=== PATIENT | male | born 1995 | race Caucasian/White ===

== ENCOUNTER 2017-04-10 23:38 | Inpatient (IN) | payer OTHER ==
[~2017-04-10] VITALS: Ht 170.2 cm; Wt 63.9 kg
[2017-04-11] VITALS (9 sets, daily range): BP systolic 111–116; BP diastolic 65–77; PULSE 65–96; RESP 18–22; TEMP 98.6; Ht 170.2 cm; Wt 63.9 kg
[2017-04-11] MEDS ORDERED: D-ME473S2 PO (01:55)
[2017-04-11] MEDS ORDERED: ETOMIDATE 20 MG INJ IV STA (02:00)
--- NOTE | 2017-04-11 02:05 | ERD ---
ER Documentation Chief Complaint Chief Complaint cough x 2 days, sob today (TATI PEREZ) HPI This is a 21-year-old male presents to the ER with cough and shortness of breath that started last night. Patient states that he feels like he has something in the middle of his chest and feels like he cannot take a deep breath in. He denies any fevers or chills. Patient went to an ER last night, however left before being seen. Has not had any trauma. He has not traveled anywhere. He does not have any leg pain, redness or swelling. (TATI PEREZ) Shortness of breath transferred from ER 2. Found to have tension pneumothorax. Transported immediately to ER 1 for chest tube placement. Patient's vital signs remained stable throughout (ANGEL REID) ROS 12 point review of systems was done, all negative except per HPI. (TATI PEREZ) Medications Home Meds No Active Prescriptions or Reported Meds Allergies Allergies: Coded Allergies: No Known Allergy (Unverified , 04/10/17) PMhx/Soc Medical and Surgical Hx: pt denies Medical Hx, pt denies Surgical Hx Hx Alcohol Use: No Hx Substance Use: No Hx Tobacco Use: No Smoking Status: Never smoker (TATI PEREZ) Physical Exam Vitals Vital Signs Date Time Temp Pulse Resp B/P Pulse Ox O2 Delivery O2 Flow Rate FiO2 04/11/17 02:10 100 15.0 04/10/17 23:45 99.1 75 20 131/74 97 (ANGEL REID) Physical Exam GENERAL: The patient is well developed and appropriate for usual state of health , in no apparent distress. HEENT: Atraumatic CHEST: Clear to auscultation bilaterally. There are no rales, wheezes or rhonchi. HEART: Regular rate and rhythm. No murmurs, clicks, rubs or gallops. NEURO: Alert and oriented. SKIN: There is no apparent rash or petechia. The skin is warm and dry. (TATI PEREZ) Result Diagram: 04/11/17 0539 04/11/17 0539 Results 24 hrs Laboratory Tests Test 04/11/17 02:10 White Blood Count 7.810^3/ul Red Blood Count 4.8910^6/ul Hemoglobin 15.4g/dl Hematocrit 45.3% Mean Corpuscular Volume 92.6fl Mean Corpuscular Hemoglobin 31.5pg Mean Corpuscular Hemoglobin Concent 34.0g/dl Red Cell Distribution Width 12.7% Platelet Count 20678^3/UL Mean Platelet Volume 9.6fl Neutrophils % 70.1% Lymphocytes % 20.5% Monocytes % 8.2% Eosinophils % 0.4% Basophils % 0.4% Nucleated Red Blood Cells % 0.0/100WBC Neutrophils # 5.410^3/ul Lymphocytes # 1.610^3/ul Monocytes # 0.610^3/ul Eosinophils # 0.010^3/ul Basophils # 0.010^3/ul Nucleated Red Blood Cells # 0.010^3/ul Prothrombin Time 12.9Sec Prothrombin Time Ratio 1.0 INR International Normalized Ratio 0.97 Activated Partial Thromboplast Time 26.0Sec Sodium Level 145mmol/L Potassium Level 3.9mmol/L Chloride Level 101mmol/L Carbon Dioxide Level 27mmol/L Anion Gap 21 Blood Urea Nitrogen 12mg/dl Creatinine 0.92mg/dl Glucose Level 101mg/dl Calcium Level 9.8mg/dl Total Bilirubin 0.9mg/dl Direct Bilirubin 0.00mg/dl Indirect Bilirubin 0.9mg/dl Aspartate Amino Transf (AST/SGOT) 36IU/L Alanine Aminotransferase (ALT/SGPT) 46IU/L Alkaline Phosphatase 100IU/L Total Protein 8.5g/dl Albumin 5.4g/dl Globulin 3.10g/dl Albumin/Globulin Ratio 1.74 Lipase Pending Current Medications Medications (Trade) Dose Ordered Sig/Jackeline Route PRN Reason Start Time Stop Time Status Last Admin Dose Admin Etomidate (Amidate) 20 mg ONCE STAT IV 04/11/17 02:00 04/11/17 02:03 DC 04/11/17 02:16 Lorazepam (Ativan) 2 mg STK-MED ONCE .ROUTE 04/11/17 02:20 04/11/17 02:21 DC (ANGEL REID) Results 24 hrs Laboratory Tests Test 04/11/17 02:10 White Blood Count 7.810^3/ul Red Blood Count 4.8910^6/ul Hemoglobin 15.4g/dl Hematocrit 45.3% Mean Corpuscular Volume 92.6fl Mean Corpuscular Hemoglobin 31.5pg Mean Corpuscular Hemoglobin Concent 34.0g/dl Red Cell Distribution Width 12.7% Platelet Count 18323^3/UL Mean Platelet Volume 9.6fl Neutrophils % 70.1% Lymphocytes % 20.5% Monocytes % 8.2% Eosinophils % 0.4% Basophils % 0.4% Nucleated Red Blood Cells % 0.0/100WBC Neutrophils # 5.410^3/ul Lymphocytes # 1.610^3/ul Monocytes # 0.610^3/ul Eosinophils # 0.010^3/ul Basophils # 0.010^3/ul Nucleated Red Blood Cells # 0.010^3/ul Prothrombin Time 12.9Sec Prothrombin Time Ratio 1.0 INR International Normalized Ratio 0.97 Activated Partial Thromboplast Time 26.0Sec Sodium Level 145mmol/L Potassium Level 3.9mmol/L Chloride Level 101mmol/L Carbon Dioxide Level 27mmol/L Anion Gap 21 Blood Urea Nitrogen 12mg/dl Creatinine 0.92mg/dl Glucose Level 101mg/dl Calcium Level 9.8mg/dl Total Bilirubin 0.9mg/dl Direct Bilirubin 0.00mg/dl Indirect Bilirubin 0.9mg/dl Aspartate Amino Transf (AST/SGOT) 36IU/L Alanine Aminotransferase (ALT/SGPT) 46IU/L Alkaline Phosphatase 100IU/L Total Protein 8.5g/dl Albumin 5.4g/dl Globulin 3.10g/dl Albumin/Globulin Ratio 1.74 Lipase 14U/L Current Medications Medications (Trade) Dose Ordered Sig/Jackeline Route PRN Reason Start Time Stop Time Status Last Admin Dose Admin Etomidate (Amidate) 20 mg ONCE STAT IV 04/11/17 02:00 04/11/17 02:03 DC 04/11/17 02:16 Lorazepam (Ativan) 2 mg STK-MED ONCE .ROUTE 04/11/17 02:20 04/11/17 02:21 [place] [address] Radiology Main Line: [phone] DIAGNOSTIC IMAGING REPORT Patient: BETTY RUBIO : 1995 Age: 21 Sex: M MR #: [id number] DOS: 04/11/17 0000 Ordering MD: TATI PEREZ-[place] Location: [facility] Room/Bed: PROCEDURE: Chest. CLINICAL INDICATION: Shortness of breath. TECHNIQUE: Single frontal view of the chest was obtained. COMPARISON: None. FINDINGS: The cardiac silhouette is within normal limits. The aortic arch is unremarkable. There is no focal consolidation, vascular congestion or pleural effusion. There is a large right-sided pneumothorax. There is mild deviation of the trachea to the left. IMPRESSION: Large right-sided pneumothorax with mild deviation of the trachea to the left. Critical results were discussed with Dr. Reid at 02:03 a.m. .Kirit Smith MD, Date Time Electronically viewed and signed by .Kirit Smith MD, MD on 04/11/2017 02:04 .T/ CC: TATI PEREZ (TATI PEREZ) Procedures/MDM Patient's was found to have a pneumothorax, he was transferred to ER 1 for further management and care. Patient was not hypoxic or any respiratory distress. (TATI PEREZ) Chest Tube Placement by me: Patient consented, sterilely draped, full prep, gown, glove, mask, time out performed. Anesthesia: 1% lidocaine locally Location: Mid-Anterior Axillary Line, approximate 5th intercostal Device: 24 Setswana chest tube Technique: Vertical incision, blunt dissection above the superior rib border , tactile confirmation Results: Chest tube fogging Secured with suture and taping. No complications. Attached to [facility]. Critical Care: Time: 45 minutes Treatments/Evaluations: Close monitoring and treatment of unstable vital signs, cardiorespiratory, and neurologic status, while maintaining tight balance of fluid, respiratory, and cardiac interventions. Chest X-ray 1V Interpreted by me: Pneumothorax diminished to 2 cm, chest tube in pleural space facing cephalad. Normal soft tissue. (ANGEL REID) Departure Diagnosis: Primary Impression: Tension pneumothorax, spontaneous Condition: Stable Patient Instructions: Preventing Common Respiratory Infections Additional Instructions: Call your primary care doctor TOMORROW for an appointment during the next 1-2 days.See the doctor sooner or return here if your condition worsens before your appointment time. TATI PEREZ Apr 11, 2017 02:05 ANGEL REID Apr 11, 2017 03:53
[2017-04-11] MEDS ORDERED: LORAZEPAM 2 MG INJ ONE (02:20)
[2017-04-11 03:02] LABS: BASOPHILS % 0.4 % (0.0-2.0); EOSINOPHILS % 0.4 % (0.0-7.0); HEMATOCRIT 45.3 % (42.0-52.0); HEMOGLOBIN 15.4 g/dl (14.0-18.0); LYMPHOCYTES # 1.6 10^3/ul (0.8-2.9); LYMPHOCYTES % 20.5 % (15.0-51.0); MEAN CORPUSCULAR HEMOGLOBIN 31.5 pg (29.0-33.0); MEAN CORPUSCULAR VOLUME 92.6 fl (82.0-101.0); MEAN PLATELET VOLUME 9.6 fl (7.4-10.4); MONOCYTE # 0.6 10^3/ul (0.3-0.9); MONOCYTES % 8.2 % (0.0-11.0); NEUTROPHIL # 5.4 10^3/ul (1.6-7.5); NEUTROPHILS % 70.1 % (39.0-77.0); PLATELET COUNT 251 10^3/UL (140-415); RED BLOOD COUNT 4.89 10^6/ul (4.70-6.10); RED CELL DISTRIBUTION WIDTH 12.7 % (11.5-14.5); WHITE BLOOD COUNT 7.8 10^3/ul (4.8-10.8)
--- NOTE | 2017-04-11 03:20 | RADRPT ---
PROCEDURE: XR Chest. CLINICAL INDICATION: Chest tube placement TECHNIQUE: AP Portable chest. COMPARISON: CHEST 04/11/2017 FINDINGS: The patient is rotated to the right. There is interval placement of a right chest tube with the tip between the posterior right eighth an d ninth ribs. The pneumothorax is significantly decreased in size with associated re-expansion of th e right lung. There is right perihilar ground-glass density. The cardiomediastinal silhouette is normal. The aorta is normal. The left lung is clear. There is mi ld right chest subcutaneous emphysema. The osseous structures are intact. IMPRESSION: Interval placement of a right chest tube with significant decrease in size of the pneumothorax and r e-expansion of the lung. Physician Carey Date Time Electronically viewed and signed by Physician Carey on 04/11/2017 03:20 CS/
[2017-04-11 03:25] LABS: INR 0.97; PROTIME 12.9 Sec (12.2-14.2)
[2017-04-11 03:31] LABS: ALBUMIN 5.4 g/dl (3.3-4.9); ALBUMIN/GLOBULIN RATIO 1.74; BILIRUBIN,INDIRECT 0.9 mg/dl (0-1.1); BILIRUBIN,TOTAL 0.9 mg/dl (0.2-1.3); CALCIUM 9.8 mg/dl (8.4-10.2); CREATININE 0.92 mg/dl (0.61-1.24); POTASSIUM 3.9 mmol/L (3.5-5.1); TOTAL PROTEIN 8.5 g/dl (6.1-8.1)
[2017-04-11] MEDS ORDERED: NACL 0.9% 3 ML SYG IV SCH (04:00)
[2017-04-11] MEDS ORDERED: ACETAMINOPHEN 325 MG TAB PO PRN (04:00)
[2017-04-11] MEDS ORDERED: ONDANSETRON 4 MG INJ IV PRN (04:00)
[2017-04-11] MEDS ORDERED: LORAZEPAM 0.5 MG TAB PO PRN (04:00)
[2017-04-11] MEDS ORDERED: morphine 4 MG/ML VIAL IV ONE (04:11)
[2017-04-11] MEDS ORDERED: ONDANSETRON 4 MG INJ IV ONE (04:12)
--- NOTE | 2017-04-11 04:20 | HP ---
Date/Time of Note Date/Time of Note DATE: 04/11/17 TIME: 04:20 Assessment/Plan VTE Prophylaxis VTE Prophylaxis Intervention: SCD's Assessment/Plan Chief Complaint/Hosp Course This is a 21-year-old male being admitted to the telemetry floor for: #1 right-sided spontaneous pneumothorax: Possibly secondary to underlying rupture of subpleural bleb secondary to marijuana use. Patient reportedly admitted marijuana use to the ED physician. Will obtain a urine drug screen to confirm. Patient denies any other short of trauma or inciting event. Chest tube was placed by ED physician with subsequent interval improvement of the right-sided pneumothorax seen by chest x-ray. Chest tube connected to waterseal low suction. Continue current management at this time. Will consult pulmonary and CT surgery. #2 suspected marijuana use: We will check a urine drug screen. If in fact patient is positive will advise cessation. #3 DVT GI prophylaxis: SCDs, acid cody Further treatment strategy will be provided as per the clinical course Problems: HPI/ROS Admit Date/Time Admit Date/Time Hx of Present Illness Chief complaint: Shortness of breat chest painh, This is a 21-year-old male presents to the ER with cough and shortness of breath that started last night. Patient states that he feels like he has something in the middle of his chest and feels like he cannot take a deep breath in. He denies any fevers or chills. Patient went to an ER last night, however left before being seen. Has not had any trauma. He has not traveled anywhere. He does not have any leg pain, redness or swelling. I did discuss the case with the ED physician who also states that the patient reported marijuana use. Allergies: NKDA Medications: None ROS Const: As per HPI Eyes : No pain discharge or redness or change in visual acuity ENT: No pain, sore throat, congestion, congestion, dysphagia or discharge Respiratory: As per HPI Cardiovascular: No chest pain, palpitation, PND, or edema GI : no change in appetite, abdominal pain, nausea, vomiting, diarrhea, constipation, or change in the color his stool Genitourinary: No dysuria, hematuria, flank pain , discharge or CVA tenderness Musculoskeletal: No joint pain, back pain, neck pain, restricted range of motion in neck or joints Skin: No rash, bruising or hives Neuro: No headache, dizziness, syncope, seizure, focal weakness Endocrine: No polyuria, polydipsia, temperature intolerance Psych: No hallucination, depression, anxiety or suicidal ideation PMH/Family/Social Past Medical History Medical History: no pertinent history Past Surgical History Past Surgical Hx: no surgical history Family History Significant Family History: no pertinent family hx Social History Alcohol Use: none Smoking Status: Never smoker Drug Use: marijuana Exam/Review of Systems Vital Signs Vitals Vital Signs Date Time Temp Pulse Resp B/P Pulse Ox O2 Delivery O2 Flow Rate FiO2 04/11/17 02:10 100 15.0 04/10/17 23:45 99.1 75 20 131/74 Intake and Output 04/10/17 04/10/17 04/11/17 15:00 23:00 07:00 Output Total 0 ml Balance 0 ml Exam Exam General: Patient is lying in bed status post right chest tube placement HEENT: Atraumatic, normocephalic. The pupils are equal, round and reactive. Extraocular motor are intact Neck: Supple with full range of motion. No rigidity or meningismus Chest: Right chest tube inserted and connected to waterseal. Lungs: Normal breath sounds over the left lung field, diminished breath sounds of the right apex, good air movement at the rest of the lower lung field. Heart: Normal S1-S2, Regular rhythm and rate. Abdomen: Soft , nontender, nondistended , bowel sounds are present. No guarding no rebound tenderness , No masses or organomegaly. No costovertebral temporal angle mass Extremities: Normal to inspection, no edema no cyanosis Neurologic: Normal mental status, speech normal, cranial nerves II through XII are intact, motor and sensory are intact, no focal weakness Additional Comments PROCEDURE: Chest. CLINICAL INDICATION: Shortness of breath. TECHNIQUE: Single frontal view of the chest was obtained. COMPARISON: None. FINDINGS: The cardiac silhouette is within normal limits. The aortic arch is unremarkable. There is no focal consolidation, vascular congestion or pleural effusion. There is a large right-sided pneumothorax. There is mild deviation of the trachea to the left. IMPRESSION: Large right-sided pneumothorax with mild deviation of the trachea to the left. Critical results were discussed with Dr. Reid at 02:03 a.m. .Kirit Smith MD, MD Date Time Electronically viewed and signed by .Kirit Smith MD, on 04/11/2017 02:04 .T/ CC: TATI PEREZ PROCEDURE: XR Chest. CLINICAL INDICATION: Chest tube placement TECHNIQUE: AP Portable chest. COMPARISON: DR CHEST 04/11/2017 FINDINGS: The patient is rotated to the right. There is interval placement of a right chest tube with the tip between the posterior right eighth and ninth ribs. The pneumothorax is significantly decreased in size with associated re-expansion of the right lung. There is right perihilar ground-glass density. The cardiomediastinal silhouette is normal. The aorta is normal. The left lung is clear. There is mild right chest subcutaneous emphysema. The osseous structures are intact. IMPRESSION: Interval placement of a right chest tube with significant decrease in size of the pneumothorax and re-expansion of the lung. Physician Carey Date Time Electronically viewed and signed by Physician Carey on 04/11/2017 03: 20 CS/ CC: ANGEL REID Labs Result Diagram: 04/11/17 02104/11/17 0210 Medications Medications Current Medications Lorazepam (Ativan) 0.5 mg Q8H PRN PO ANXIETY; Start 04/11/17 at 04:00 Ondansetron HCl (Zofran Inj) 4 mg Q6H PRN IV NAUSEA AND/OR VOMITING; Start 04/11/17 at 04:00 Acetaminophen (Tylenol Tab) 650 mg Q6H PRN PO PAIN LEVEL 1-3 OR FEVER; Start 04/11/17 at 04:00 Famotidine (Pepcid) 20 mg Q12 PO ; Start 04/11/17 at 09:00 ANDREA FELIX Apr 11, 2017 04:20
[2017-04-11 05:57] LABS: BASOPHILS % 0.3 % (0.0-2.0); EOSINOPHILS % 0.1 % (0.0-7.0); HEMATOCRIT 43.3 % (42.0-52.0); HEMOGLOBIN 14.7 g/dl (14.0-18.0); LYMPHOCYTES # 1.7 10^3/ul (0.8-2.9); LYMPHOCYTES % 14.9 % (15.0-51.0); MEAN CORPUSCULAR HEMOGLOBIN 31.4 pg (29.0-33.0); MEAN CORPUSCULAR HGB CONC 33.9 g/dl (32.0-37.0); MEAN CORPUSCULAR VOLUME 92.5 fl (82.0-101.0); MEAN PLATELET VOLUME 9.4 fl (7.4-10.4); MONOCYTE # 0.9 10^3/ul (0.3-0.9); NEUTROPHIL # 8.9 10^3/ul (1.6-7.5); NEUTROPHILS % 76.4 % (39.0-77.0); PLATELET COUNT 209 10^3/UL (140-415); RED BLOOD COUNT 4.68 10^6/ul (4.70-6.10); RED CELL DISTRIBUTION WIDTH 12.9 % (11.5-14.5); WHITE BLOOD COUNT 11.6 10^3/ul (4.8-10.8)
[2017-04-11 06:35] LABS: ALBUMIN 4.9 g/dl (3.3-4.9); ALBUMIN/GLOBULIN RATIO 1.81; BILIRUBIN,INDIRECT 1.6 mg/dl (0-1.1); BILIRUBIN,TOTAL 1.6 mg/dl (0.2-1.3); CALCIUM 9.4 mg/dl (8.4-10.2); CREATININE 0.94 mg/dl (0.61-1.24); POTASSIUM 4.5 mmol/L (3.5-5.1); TOTAL PROTEIN 7.6 g/dl (6.1-8.1)
[2017-04-11] MEDS ORDERED: LORAZEPAM 2 MG INJ IV ONE (07:00)
[2017-04-11] MEDS ORDERED: ETOMIDATE 20 MG INJ IV ONE (07:00)
--- NOTE | 2017-04-11 08:43 | RADRPT ---
PROCEDURE: XR Chest. CLINICAL INDICATION: Shortness of breath. TECHNIQUE: Single frontal view. COMPARISON: 04/11/2017. 0236 hours. FINDINGS: The lungs are clear. The heart size is normal. There is no pleural effusion. The right chest tube remains in satisfactory position. There is a right pneumothorax measuring appro ximately 40%. There is no left pneumothorax para IMPRESSION: 1. Right chest tube. 2. Right pneumothorax measuring approximately 40%. 3. Otherwise normal chest radiograph. RPTAT: QQ .Patrick Marie MD, MD Date Time Electronically viewed and signed by .Partick Marie MD, MD on 04/11/2017 08:43 .R/
[2017-04-11] MEDS: FAMOTIDINE 20 MG TAB PO SCH ×2 (09:00→21:30)
--- NOTE | 2017-04-11 15:58 | PN ---
Date/Time of Note Date/Time of Note DATE: 04/11/17 TIME: 15:52 Assessment/Plan VTE Prophylaxis VTE Prophylaxis Intervention: ambulation, SCD's Lines/Catheters IV Catheter Type (from Nrs): Saline Lock Assessment/Plan Assessment/Plan 1. Right-sided spontaneous pneumothorax s/p Chest tube placement - Patient admits to smoking marijuana and counseled about effects and PTX most likely secondary to rupture of subpleural bleb. - Pulmonology consulted as well as CT surgery for management of chest tube - No acute respiratory distress - Pain management - CXR this am shows 40% right pneumo. Will repeat CXR in am 2. Marijuana use - Counseled about cessation 3. GI ppx - PPI 4. Disposition - Continue monitoring until resolution of pneumothorax Subjective 24 Hr Interval Summary Free Text/Dictation Patient states breathing has significantly improved since placement of chest tube. Denies any pain but does experiencing discomfort with movement. No acute overnight events. Exam/Review of Systems Vital Signs Vitals Vital Signs Date Time Temp Pulse Resp B/P Pulse Ox O2 Delivery O2 Flow Rate FiO2 04/11/17 12:16 65 04/11/17 11:00 99.1 22 111/65 96 Room Air 04/11/17 11:00 2.0 Intake and Output 04/10/17 04/10/17 04/11/17 15:00 23:00 07:00 Output Total 0 ml Balance 0 ml Exam General: Patient in NAD, awake and alert HEENT: Atraumatic, normocephalic. The pupils are equal, round and reactive. Extraocular motor are intact Neck: Supple with full range of motion. No rigidity or meningismus Chest: Right chest tube inserted and connected to water seal. No bubbles appreciated Lungs: Normal breath sounds over the left lung field, diminished breath sounds of the right apex, good air movement at the rest of the lower lung field. Heart: Normal S1-S2, Regular rhythm and rate. Abdomen: Soft , nontender, nondistended , bowel sounds are present. No guarding no rebound tenderness , No masses or organomegaly. No costovertebral temporal angle mass Extremities: Normal to inspection, no edema no cyanosis Results Result Diagram: 04/11/17 0539 04/11/17 0539 Results 24 hrs Laboratory Tests Test 04/11/17 02:10 04/11/17 05:39 White Blood Count 7.8 11.6 #H Red Blood Count 4.89 4.68 L Hemoglobin 15.4 14.7 Hematocrit 45.3 43.3 Mean Corpuscular Volume 92.6 92.5 Mean Corpuscular Hemoglobin 31.5 31.4 Mean Corpuscular Hemoglobin Concent 34.0 33.9 Red Cell Distribution Width 12.7 12.9 Platelet Count 251 209 Mean Platelet Volume 9.6 9.4 Neutrophils % 70.1 76.4 Lymphocytes % 20.5 14.9 L Monocytes % 8.2 8.0 Eosinophils % 0.4 0.1 Basophils % 0.4 0.3 Nucleated Red Blood Cells % 0.0 0.0 Neutrophils # 5.4 8.9 H Lymphocytes # 1.6 1.7 Monocytes # 0.6 0.9 Eosinophils # 0.0 0.0 Basophils # 0.0 0.0 Nucleated Red Blood Cells # 0.0 0.0 Prothrombin Time 12.9 Prothrombin Time Ratio 1.0 INR International Normalized Ratio 0.97 Activated Partial Thromboplast Time 26.0 Sodium Level 145 H 144 Potassium Level 3.9 4.5 Chloride Level 101 103 Carbon Dioxide Level 27 28 Anion Gap 21 H 18 H Blood Urea Nitrogen 12 14 Creatinine 0.92 0.94 Glucose Level 101 101 Calcium Level 9.8 9.4 Total Bilirubin 0.9 1.6 H Direct Bilirubin 0.00 0.00 Indirect Bilirubin 0.9 1.6 H Aspartate Amino Transf (AST/SGOT) 36 36 Alanine Aminotransferase (ALT/SGPT) 46 45 Alkaline Phosphatase 100 77 Total Protein 8.5 H 7.6 Albumin 5.4 H 4.9 Globulin 3.10 2.70 Albumin/Globulin Ratio 1.74 1.81 Lipase 14 L Medications Medications Current Medications Lorazepam (Ativan) 0.5 mg Q8H PRN PO ANXIETY; Start 04/11/17 at 04:00 Ondansetron HCl (Zofran Inj) 4 mg Q6H PRN IV NAUSEA AND/OR VOMITING; Start 04/11/17 at 04:00 Acetaminophen (Tylenol Tab) 650 mg Q6H PRN PO PAIN LEVEL 1-3 OR FEVER; Start 04/11/17 at 04:00 Famotidine (Pepcid) 20 mg Q12 PO ; Start 04/11/17 at 09:00 ELIZABETH TRIVEDI MD Apr 11, 2017 15:58
[2017-04-11] MEDS: HYDROCODONE/APAP (5/325) TAB PO PRN ×2 (17:42→20:46)
--- NOTE | 2017-04-11 18:49 | CONS ---
Date/Time of Note Date/Time of Note DATE: 04/11/17 TIME: 18:47 Assessment/Plan Assessment/Plan Chief Complaint/Hosp Course Pneumothorax Spontaneous episode of right pneumothorax responding to a chest tube placement will continue chest tube suction Repeat chest x-ray in a.m. Problems: Consultation Date/Type/Reason Admit Date/Time Date of Consultation: Apr 11, 2017 Hx of Present Illness This is a 21-year-old male with a history of marijuana use admitted because of chest pain chest x-ray was done which showed a right-sided pneumothorax subsequently the patient had a chest tube placed pneumothorax resolved however today the pneumothorax is free Past Medical History Medical History: no pertinent history Past Surgical History Past Surgical Hx: no surgical history Social History Alcohol Use: none Smoking Status: Never smoker Drug Use: marijuana Exam/Review of Systems Vital Signs Vitals Vital Signs Date Time Temp Pulse Resp B/P Pulse Ox O2 Delivery O2 Flow Rate FiO2 04/11/17 16:03 80 04/11/17 11:00 99.1 22 111/65 96 Room Air 04/11/17 11:00 2.0 Intake and Output 04/10/17 04/10/17 04/11/17 15:00 23:00 07:00 Output Total 0 ml Balance 0 ml Exam ENMT: nl external ears & nose, nl lips & teeth, nl nasal mucosa & septum Neck: non-tender, supple Respiratory: clear to auscultation, normal air movement Cardiovascular: nl pulses, regular rate and rhythm Results Result Diagram: 04/11/17 0539 04/11/17 0539 Results 24 hrs Laboratory Tests Test 04/11/17 02:10 04/11/17 05:39 White Blood Count 7.8 11.6 #H Red Blood Count 4.89 4.68 L Hemoglobin 15.4 14.7 Hematocrit 45.3 43.3 Mean Corpuscular Volume 92.6 92.5 Mean Corpuscular Hemoglobin 31.5 31.4 Mean Corpuscular Hemoglobin Concent 34.0 33.9 Red Cell Distribution Width 12.7 12.9 Platelet Count 251 209 Mean Platelet Volume 9.6 9.4 Neutrophils % 70.1 76.4 Lymphocytes % 20.5 14.9 L Monocytes % 8.2 8.0 Eosinophils % 0.4 0.1 Basophils % 0.4 0.3 Nucleated Red Blood Cells % 0.0 0.0 Neutrophils # 5.4 8.9 H Lymphocytes # 1.6 1.7 Monocytes # 0.6 0.9 Eosinophils # 0.0 0.0 Basophils # 0.0 0.0 Nucleated Red Blood Cells # 0.0 0.0 Prothrombin Time 12.9 Prothrombin Time Ratio 1.0 INR International Normalized Ratio 0.97 Activated Partial Thromboplast Time 26.0 Sodium Level 145 H 144 Potassium Level 3.9 4.5 Chloride Level 101 103 Carbon Dioxide Level 27 28 Anion Gap 21 H 18 H Blood Urea Nitrogen 12 14 Creatinine 0.92 0.94 Glucose Level 101 101 Calcium Level 9.8 9.4 Total Bilirubin 0.9 1.6 H Direct Bilirubin 0.00 0.00 Indirect Bilirubin 0.9 1.6 H Aspartate Amino Transf (AST/SGOT) 36 36 Alanine Aminotransferase (ALT/SGPT) 46 45 Alkaline Phosphatase 100 77 Total Protein 8.5 H 7.6 Albumin 5.4 H 4.9 Globulin 3.10 2.70 Albumin/Globulin Ratio 1.74 1.81 Lipase 14 L Medications Medications Current Medications Lorazepam (Ativan) 0.5 mg Q8H PRN PO ANXIETY; Start 04/11/17 at 04:00 Ondansetron HCl (Zofran Inj) 4 mg Q6H PRN IV NAUSEA AND/OR VOMITING; Start 04/11/17 at 04:00 Acetaminophen (Tylenol Tab) 650 mg Q6H PRN PO PAIN LEVEL 1-3 OR FEVER; Start 04/11/17 at 04:00 Famotidine (Pepcid) 20 mg Q12 PO Last administered on 04/11/17 09:00; Admin Dose 20 MG; Start 04/11/17 at 09:00 Acetaminophen/ Hydrocodone Bitart ([place] (5/325)) 1 tab Q4H PRN PO SOB Last administered on 04/11/17 17:42; Admin Dose 1 TAB; Start 04/11/17 at 16:00 HARRY EDGE MD Apr 11, 2017 18:49
[2017-04-12] VITALS (12 sets, daily range): BP systolic 96–138; BP diastolic 59–81; PULSE 54–74; RESP 16–21
[2017-04-12] MEDS: HYDROCODONE/APAP (5/325) TAB PO PRN ×3 (02:51→16:38)
[2017-04-12 07:25] LABS: BASOPHILS % 0.2 % (0.0-2.0); EOSINOPHILS % 0.5 % (0.0-7.0); HEMATOCRIT 41.6 % (42.0-52.0); HEMOGLOBIN 14.4 g/dl (14.0-18.0); LYMPHOCYTES # 1.4 10^3/ul (0.8-2.9); LYMPHOCYTES % 22.1 % (15.0-51.0); MEAN CORPUSCULAR HEMOGLOBIN 31.9 pg (29.0-33.0); MEAN CORPUSCULAR HGB CONC 34.6 g/dl (32.0-37.0); MEAN CORPUSCULAR VOLUME 92.2 fl (82.0-101.0); MEAN PLATELET VOLUME 9.3 fl (7.4-10.4); MONOCYTE # 0.6 10^3/ul (0.3-0.9); MONOCYTES % 9.9 % (0.0-11.0); NEUTROPHIL # 4.2 10^3/ul (1.6-7.5); NEUTROPHILS % 67.1 % (39.0-77.0); PLATELET COUNT 215 10^3/UL (140-415); RED BLOOD COUNT 4.51 10^6/ul (4.70-6.10); RED CELL DISTRIBUTION WIDTH 12.4 % (11.5-14.5); WHITE BLOOD COUNT 6.3 10^3/ul (4.8-10.8)
[2017-04-12 07:59] LABS: ALBUMIN 4.1 g/dl (3.3-4.9); CALCIUM 9.5 mg/dl (8.4-10.2); CREATININE 0.87 mg/dl (0.61-1.24); MAGNESIUM 1.8 mg/dl (1.7-2.5); PHOSPHORUS 5.1 mg/dl (2.5-4.9); POTASSIUM 3.7 mmol/L (3.5-5.1)
[2017-04-12] MEDS: FAMOTIDINE 20 MG TAB PO SCH ×2 (09:28→22:05)
--- NOTE | 2017-04-12 11:25 | RADRPT ---
PROCEDURE: XR Chest. CLINICAL INDICATION: reevaluate pneumothorax TECHNIQUE: PA and Lateral views of the chest were obtained. COMPARISON: Chest radiograph dated April 11, 2017. FINDINGS: The heart is normal in size. Again seen is a right-sided pneumothorax with a chest tube in place in stable position. There is an air gap of 4.0 cm, previously 3.0 cm. There is no evidence of significant mass effect on the mediast inum or heart. The left lung is unremarkable. The osseous structures are grossly unremarkable. IMPRESSION: Compared to chest radiograph dated April 11, 2017 at 8:08 am: 1. Right pneumothorax, which appears increased in size with an air gap of 4.0 cm (previously 3.0 cm ). Chest tube in stable position. RPTAT:AAJJ Physician Emi Date Time Electronically viewed and signed by Physician Emi on 04/12/2017 11:25 QL/
--- NOTE | 2017-04-12 12:29 | CONS ---
DATE OF ADMISSION: 04/11/2017 DATE OF CONSULTATION: TYPE OF CONSULTATION: Pulmonary. REASON FOR CONSULTATION: Pneumothorax. HISTORY OF PRESENT ILLNESS: This is a pleasant 21-year-old gentleman who presented with increasing cough, shortness of breath, sudden onset. No travel history. Occurred while the patient was appare ntly smoking marijuana. No prior history of asthma. On admission, was found to have moderate right pneumothorax requiring chest tube placement. This morning, patient remains stable. Repeat chest x -ray shows persistent pneumothorax 4 cm with pleural space. He denies any hemoptysis, hematemesis. No shortness of breath. Other than discomfort around chest tube insertion site. PAST MEDICAL HISTORY: None of note. SOCIAL HISTORY: Nonsmoker, no alcohol, recreational drug use per chart. MEDICATIONS: Per chart. ALLERGIES: NONE. PHYSICAL EXAMINATION: GENERAL: Well-nourished, well-developed gentleman, comfortable at rest. VITAL SIGNS: Temperature 98, pulse 54, blood pressure 96/49, O2 saturation 96% on room air. NECK: Supple. No JVD or lymphadenopathy. CARDIAC: S1, S2, no added sounds or murmurs. CHEST: Diminished air entry bilaterally. ABDOMEN: Soft, nontender. No guarding or rebound. EXTREMITIES: No cyanosis, clubbing, or edema. NEUROLOGIC: Generalized weakness. IMAGING: Chest x-ray this morning shows persistent right pneumothorax. Chest tube in stable positi on. PLAN: 1. Continue chest tube to suction. Exam suggestive of air leak with bubbling in water chamber of c hest tube. 2. CT of the chest to exclude . 3. Thoracic surgery recommendations. Dictated By: ANABEL CAMPOS/PRASANNA Conf#: [id number] DID#: [id number]
--- NOTE | 2017-04-12 12:42 | PN ---
Date/Time of Note Date/Time of Note DATE: 04/12/17 TIME: 12:33 Assessment/Plan VTE Prophylaxis VTE Prophylaxis Intervention: ambulation Lines/Catheters IV Catheter Type (from Nrs): Saline Lock Assessment/Plan Assessment/Plan 1. Right-sided spontaneous pneumothorax s/p Chest tube placement - Repeat CXR this am shows increased in size with an air gap of 4.0 cm ( previously 3.0 cm). Chest tube in stable position - CT surgery on board and recommendations appreciated - Pulmonology on board as well and consultation appreciated - Patient admits to smoking marijuana and counseled about effects and PTX most likely secondary to rupture of subpleural bleb. - No acute respiratory distress - Pain management 2. Marijuana use - Counseled about cessation 3. Disposition - continue monitoring while CT in place Subjective 24 Hr Interval Summary Free Text/Dictation Patient resting comfortably. States experiencing less discomfort since suction was turned off. Denies any new complaints and no acute overnight events. Exam/Review of Systems Vital Signs Vitals Vital Signs Date Time Temp Pulse Resp B/P Pulse Ox O2 Delivery O2 Flow Rate FiO2 04/12/17 12:14 56 04/12/17 11:36 98.7 18 105/66 95 04/11/17 22:58 Room Air 04/11/17 11:00 2.0 Intake and Output 04/11/17 04/11/17 04/12/17 15:00 23:00 07:00 Intake Total 240 ml Output Total 491 ml Balance -251 ml Exam General: Patient in NAD, awake and alert HEENT: Atraumatic, normocephalic. The pupils are equal, round and reactive. Extraocular motor are intact Neck: Supple with full range of motion. No rigidity or meningismus Chest: Right chest tube in place Lungs: Normal breath sounds over the left lung field, diminished breath sounds of the right apex, good air movement at the rest of the lower lung field. Heart: Normal S1-S2, Regular rhythm and rate. Abdomen: Soft , nontender, nondistended , bowel sounds are present. No guarding no rebound tenderness Extremities: Normal to inspection, no edema no cyanosis Results Result Diagram: 04/12/17 0710 04/12/17 0710 Results 24 hrs Laboratory Tests Test 04/12/17 07:10 White Blood Count 6.3 # Red Blood Count 4.51 L Hemoglobin 14.4 Hematocrit 41.6 L Mean Corpuscular Volume 92.2 Mean Corpuscular Hemoglobin 31.9 Mean Corpuscular Hemoglobin Concent 34.6 Red Cell Distribution Width 12.4 Platelet Count 215 Mean Platelet Volume 9.3 Neutrophils % 67.1 Lymphocytes % 22.1 Monocytes % 9.9 Eosinophils % 0.5 Basophils % 0.2 Nucleated Red Blood Cells % 0.0 Neutrophils # 4.2 Lymphocytes # 1.4 Monocytes # 0.6 Eosinophils # 0.0 Basophils # 0.0 Nucleated Red Blood Cells # 0.0 Sodium Level 142 Potassium Level 3.7 Chloride Level 103 Carbon Dioxide Level 29 Anion Gap 14 Blood Urea Nitrogen 11 Creatinine 0.87 Glucose Level 106 Calcium Level 9.5 Phosphorus Level 5.1 H Magnesium Level 1.8 Albumin 4.1 Medications Medications Current Medications Lorazepam (Ativan) 0.5 mg Q8H PRN PO ANXIETY; Start 04/11/17 at 04:00 Ondansetron HCl (Zofran Inj) 4 mg Q6H PRN IV NAUSEA AND/OR VOMITING; Start 04/11/17 at 04:00 Acetaminophen (Tylenol Tab) 650 mg Q6H PRN PO PAIN LEVEL 1-3 OR FEVER; Start 04/11/17 at 04:00 Famotidine (Pepcid) 20 mg Q12 PO Last administered on 04/12/17 09:28; Admin Dose 20 MG; Start 04/11/17 at 09:00 Acetaminophen/ Hydrocodone Bitart ([place] (5/325)) 1 tab Q4H PRN PO SOB Last administered on 04/12/17 09:38; Admin Dose 1 TAB; Start 04/11/17 at 16:00 ELIZABETH TRIVEDI MD Apr 12, 2017 12:42
[2017-04-12] MEDS ORDERED: INFLUENZA VIRUS VACCINE 0.5 ML SYG IM* ONE (16:00)
--- NOTE | 2017-04-12 20:09 | PN ---
Date/Time of Note Date/Time of Note DATE: 04/12/17 TIME: 20:08 Assessment/Plan Lines/Catheters IV Catheter Type (from Nrsg): Saline Lock Assessment/Plan Chief Complaint/Hosp Course Pneumothorax increased in size Spontaneous episode of right pneumothorax responding to a chest tube placement will continue chest tube suction may need a 2nd CT Repeat chest x-ray in a.m. Problems: Subjective 24 Hr Interval Summary Constitutional: improved Pain Control: mild Exam/Review of Systems Vital Signs Vitals Vital Signs Date Time Temp Pulse Resp B/P Pulse Ox O2 Delivery O2 Flow Rate FiO2 04/12/17 16:27 67 04/12/17 15:28 98.5 18 103/60 99 04/11/17 22:58 Room Air 04/11/17 11:00 2.0 Intake and Output 04/11/17 04/11/17 04/12/17 15:00 23:00 07:00 Intake Total 240 ml Output Total 491 ml Balance -251 ml Exam ENMT: mucosa pink and moist, nl external ears & nose, nl lips & teeth, nl nasal mucosa & septum Neck: non-tender, supple Respiratory: clear to auscultation, normal air movement Cardiovascular: nl pulses, regular rate and rhythm Gastrointestinal: nl liver, spleen, non-tender, soft Results Result Diagram: 04/12/17 0710 04/12/17 0710 HARRY EDGE MD Apr 12, 2017 20:09
--- NOTE | 2017-04-12 22:42 | RADRPT ---
PROCEDURE: CT Chest without contrast. CLINICAL INDICATION: Pneumothorax. Possible pulmonary blood. TECHNIQUE: CT scan of the chest without contrast was performed on a multidetector high-resolution C T scanner. Coronal and sagittal reformatted images were obtained from the axial source images. The total exam CTDI equals 7.02 mGy and the total exam DLP equals 288.19 mGy-cm. One or more of the following dose reduction techniques were used: - Automated exposure control. - Adjustment of the mA and/or kV according to patient size. - Use of iterative reconstruction technique. COMPARISON: Chest x-rays dated 04/12/2017 and 04/11/2017. FINDINGS: Lungs, pleura, airways, and thoracic inlet: There is a [id number] right-sided pneumothorax d espite a right-sided thoracostomy tube being in place. There is ground-glass opacity within the post erior right upper lobe and dependent right lower lobe, some of which may be related to atelectasis. The left lung is clear. There is no left-sided pneumothorax. There is subcutaneous emphysema within the overlying lateral right chest wall extending into the posterior upper abdomen. The tracheobronch ial tree is patent and normal in course and caliber. Cardiovascular system, mediastinum, and lymphatics: The heart is normal in size without pericardial thickening or effusion. The aorta is nonaneurysmal. There is no axillary, hilar, or mediastinal ad enopathy. Visualized upper abdomen: The visualized upper abdomen is grossly unremarkable. Musculoskeletal system and soft tissues: There are no concerning osseous lesions. IMPRESSION: 1. Gwqcphkt-[id number] right pneumothorax despite a right-sided thoracostomy tube in place, which chloe ears increased in size when compared with the recent chest x-ray performed earlier the same day, giv en the difference in technique. Consider repositioning/advancing the existing chest tube, which is l ikely malfunctioning. Subcutaneous emphysema overlying the lateral right chest wall extending toward the upper abdomen posteriorly. 2. Ground-glass opacity within the posterior right upper lobe and dependent right lower lobe, some of which is likely related to atelectasis. CRITICAL RESULTS: These findings discussed with the patient's nurse Jessica Stroud at 2238 hours o n 04/12/2017. RPTAT: HLBP .Jorge Mata MD, MD Date Time Electronically viewed and signed by .Jorge Mata MD, MD on 04/12/2017 22:41 .P/
[2017-04-13] VITALS (13 sets, daily range): BP systolic 98–128; BP diastolic 58–84; PULSE 52–78; RESP 17–21
[2017-04-13] MEDS: HYDROCODONE/APAP (5/325) TAB PO PRN ×5 (00:18→20:52)
[2017-04-13 07:24] LABS: ADD UMIC YES; UR AMORPHOUS CRYSTAL FEW /HPF (NONE SEEN); UR ASCORBIC ACID NEGATIVE (NEGATIVE); UR BACTERIA FEW /HPF (NONE SEEN); UR BILIRUBIN (Dip) NEGATIVE (NEGATIVE); UR BLOOD (Dip) NEGATIVE (NEGATIVE); UR CLARITY CLOUDY (CLEAR); UR COLOR YELLOW (YELLOW); UR GLUCOSE (Dip) NEGATIVE (NEGATIVE); UR KETONES (Dip) NEGATIVE (NEGATIVE); UR LEUKOCYTE ESTERASE (Dip) NEGATIVE Leu/ul (NEGATIVE); UR NITRITE (Dip) NEGATIVE (NEGATIVE); UR RBC 1 /HPF (0-5); UR TOTAL PROTEIN (Dip) NEGATIVE (NEGATIVE); UR UROBILINOGEN (Dip) 1+ mg/dL (NEGATIVE)
[2017-04-13 07:52] LABS: BARBITURATES Negative (NEGATIVE); BENZODIAZEPINES Negative (NEGATIVE); CANNABINOIDS Positive (NEGATIVE); COCAINE Negative (NEGATIVE); OPIATES Positive (NEGATIVE)
[2017-04-13 08:25] LABS: BASOPHILS % 0.4 % (0.0-2.0); EOSINOPHILS # 0.1 10^3/ul (0.0-0.5); HEMATOCRIT 43.2 % (42.0-52.0); HEMOGLOBIN 14.3 g/dl (14.0-18.0); LYMPHOCYTES # 1.5 10^3/ul (0.8-2.9); LYMPHOCYTES % 20.7 % (15.0-51.0); MEAN CORPUSCULAR HEMOGLOBIN 30.6 pg (29.0-33.0); MEAN CORPUSCULAR HGB CONC 33.1 g/dl (32.0-37.0); MEAN CORPUSCULAR VOLUME 92.5 fl (82.0-101.0); MEAN PLATELET VOLUME 9.8 fl (7.4-10.4); MONOCYTE # 0.7 10^3/ul (0.3-0.9); MONOCYTES % 9.8 % (0.0-11.0); NEUTROPHIL # 4.7 10^3/ul (1.6-7.5); PLATELET COUNT 214 10^3/UL (140-415); RED BLOOD COUNT 4.67 10^6/ul (4.70-6.10); RED CELL DISTRIBUTION WIDTH 12.5 % (11.5-14.5)
--- NOTE | 2017-04-13 08:27 | RADRPT ---
PROCEDURE: XR Chest. CLINICAL INDICATION: Right pneumothorax. TECHNIQUE: Single frontal view. COMPARISON: 04/12/2017. FINDINGS: The lungs are clear. The heart size is normal. There is no pleural effusion. There is a right pneumothorax measuring approximately 20%, smaller than seen previously. A right maritza st tube remains in satisfactory position. IMPRESSION: 1. Right pneumothorax measuring approximately 20%, smaller than seen previously. 2. Right chest tube. 3. Otherwise unremarkable chest radiograph. RPTAT: QQ .Patrick Marie MD, MD Date Time Electronically viewed and signed by .Patrick Marie MD, MD on 04/13/2017 08:27 .R/
[2017-04-13] MEDS: FAMOTIDINE 20 MG TAB PO SCH ×2 (08:34→21:00)
[2017-04-13 08:56] LABS: ALBUMIN 4.5 g/dl (3.3-4.9); CALCIUM 9.5 mg/dl (8.4-10.2); CREATININE 0.99 mg/dl (0.61-1.24); MAGNESIUM 1.8 mg/dl (1.7-2.5); PHOSPHORUS 4.6 mg/dl (2.5-4.9); POTASSIUM 4.1 mmol/L (3.5-5.1)
[2017-04-13] MEDS ORDERED: SOD CHLORIDE 0.9% 500 ML ONE (09:58)
[2017-04-13] MEDS ORDERED: FENTAnyl 50 MCG/ML VIAL ONE (09:58)
[2017-04-13] MEDS ORDERED: MIDAZOLAM 1 MG/ML 2 ML INJ ONE (09:58)
[2017-04-13] MEDS ORDERED: LIDOCAINE 1% (MDV) 20 ML INJ ONE (09:58)
--- NOTE | 2017-04-13 11:11 | PN ---
Date/Time of Note Date/Time of Note DATE: 04/13/17 TIME: 11:11 Assessment/Plan VTE Prophylaxis VTE Prophylaxis Intervention: SCD's Lines/Catheters IV Catheter Type (from Nrs): Saline Lock Assessment/Plan Assessment/Plan 1. Right-sided spontaneous pneumothorax s/p Chest tube placement - repeat CT scan last night showed Czefirwv-ec-[id number] right pneumothorax despite a right-sided thoracostomy tube in place, which appears increased in size when compared with the recent chest x-ray performed earlier the same day, given the difference in technique. - Repeat CXR this am showed Right pneumothorax measuring approximately 20%, smaller than seen previously. - CT surgery on board and recommendations appreciated. plans for a second chest tube placement - Pulmonology on board as well and consultation appreciated - Patient admits to smoking marijuana and counseled about effects and PTX most likely secondary to rupture of subpleural bleb. - No acute respiratory distress - Pain management 2. Marijuana use - Counseled about cessation 3. Disposition - continue monitoring while chest tubes in place Subjective 24 Hr Interval Summary Free Text/Dictation Patient experiencing discomfort at right side in area of chest tube placement. Respiratory status improving and feels as if breathing better. Chest tube leak found. CXR shows improvement right pneumo 20%. Exam/Review of Systems Vital Signs Vitals Vital Signs Date Time Temp Pulse Resp B/P Pulse Ox O2 Delivery O2 Flow Rate FiO2 04/13/17 08:10 52 04/13/17 07:43 97.7 17 98/58 100 04/13/17 00:11 100 04/13/17 00:00 Non Rebreather 15.0 Intake and Output 04/12/17 04/12/17 04/13/17 15:00 23:00 07:00 Intake Total 1200 ml 240 ml Output Total 14 ml 1110 ml Balance 1186 ml -870 ml Exam General: Patient in NAD when laying still, discomfort with movement, awake and alert HEENT: Atraumatic, normocephalic. The pupils are equal, round and reactive. Extraocular motor are intact Neck: Supple with full range of motion. No rigidity or meningismus Chest: Right chest tube in place, Lungs: Normal breath sounds over the left lung field, diminished breath sounds of the right apex, good air movement at the rest of the lower lung field. Heart: Normal S1-S2, Regular rhythm and rate. Abdomen: Soft , nontender, nondistended , bowel sounds are present. No guarding no rebound tenderness Extremities: Normal to inspection, no edema no cyanosis Results Result Diagram: 04/13/1770504/13/17 07 Results 24 hrs Laboratory Tests Test 04/13/17 05:00 04/13/17 07:06 Urine Opiates Screen Positive Urine Barbiturates Negative Urine Amphetamines Screen Negative Urine Benzodiazepines Screen Negative Urine Cocaine Screen Negative Urine Cannabinoids Positive White Blood Count 7.0 Red Blood Count 4.67 L Hemoglobin 14.3 Hematocrit 43.2 Mean Corpuscular Volume 92.5 Mean Corpuscular Hemoglobin 30.6 Mean Corpuscular Hemoglobin Concent 33.1 Red Cell Distribution Width 12.5 Platelet Count 214 Mean Platelet Volume 9.8 Neutrophils % 67.0 Lymphocytes % 20.7 Monocytes % 9.8 Eosinophils % 2.0 Basophils % 0.4 Nucleated Red Blood Cells % 0.0 Neutrophils # 4.7 Lymphocytes # 1.5 Monocytes # 0.7 Eosinophils # 0.1 Basophils # 0.0 Nucleated Red Blood Cells # 0.0 Sodium Level 140 Potassium Level 4.1 Chloride Level 100 Carbon Dioxide Level 29 Anion Gap 15 Blood Urea Nitrogen 12 Creatinine 0.99 Glucose Level 133 Calcium Level 9.5 Phosphorus Level 4.6 Magnesium Level 1.8 Albumin 4.5 Medications Medications Current Medications Lorazepam (Ativan) 0.5 mg Q8H PRN PO ANXIETY; Start 04/11/17 at 04:00 Ondansetron HCl (Zofran Inj) 4 mg Q6H PRN IV NAUSEA AND/OR VOMITING; Start 04/11/17 at 04:00 Acetaminophen (Tylenol Tab) 650 mg Q6H PRN PO PAIN LEVEL 1-3 OR FEVER; Start 04/11/17 at 04:00 Famotidine (Pepcid) 20 mg Q12 PO Last administered on 04/13/17 08:34; Admin Dose 20 MG; Start 04/11/17 at 09:00 Acetaminophen/ Hydrocodone Bitart ([place] (5/325)) 1 tab Q4H PRN PO SOB Last administered on 04/13/17 04:48; Admin Dose 1 TAB; Start 04/11/17 at 16:00 ELIZABETH TRIVEDI MD Apr 13, 2017 11:11
--- NOTE | 2017-04-13 12:14 | RADRPT ---
PROCEDURE: Fluoroscopic guided placement of right chest tube. CLINICAL INDICATION: Right pneumothorax. Shortness of breath. TECHNIQUE: Informed consent was obtained. The procedure, risks, benefits, complications and alternatives were explained to the patient. Risks including bleeding, infection, and pneumothorax were explained. The patient understood and was willing to proceed. A procedural pause was performed. The patient's name, date of , and procedure to be performed w ere verified. The right anterior/superior chest wall were prepped and draped in usual sterile fashion. Following the local injection of 1% lidocaine, a 19-gauge Yueh needle was advanced into the right pl eural space in the midclavicular line at the 3-4 interspace with fluoroscopic guidance. The Yueh met al needle was removed leaving the plastic outer cannula in position. A 0.035 inch guidewire was adv anced into the right pleural space through the plastic cannula with fluoroscopic guidance. The plas tic cannula was removed. The tract was dilated to 10-Tristanian. A 10 Tristanian multipurpose drainage cat heter was then advanced over the guide wire. The guidewire was removed. Fluoroscopic guidance demo nstrates the catheter in satisfactory position within the pleural space. The catheter was sutured t o the patient's skin with 3-0 monofilament. A dressing was applied. The patient tolerated procedure well. A Pleur-Evac system was attached to t he end of the chest tube. COMPARISON: Chest x-ray done earlier the same day. FINDINGS: Final images demonstrate the tip of the catheter in the upper right pleural space. A total of 0.1 m inutes of fluoroscopy time was used. 4 images of the chest were obtained with image intensifier. IMPRESSION: 1. Successful fluoroscopic guided placement of right chest tube. RPTAT: QQ .Patrick Marie MD, MD Date Time Electronically viewed and signed by .Patrick Marie MD, on 04/13/2017 12:13 .R/
--- NOTE | 2017-04-13 16:24 | CONS ---
Date/Time of Note Date/Time of Note DATE: 04/13/17 TIME: 16:22 Consult Date/Type/Reason Admit Date/Time Apr 11, 2017 at 03:50 Initial Consult Date 04/11/17 Type of Consultation: Pulmonary Subjective Second chest tube placed. 20% apical pneumothorax noted this morning. Patient states he feels better following placement of another chest tube. Objective Vital Signs Date Time Temp Pulse Resp B/P Pulse Ox O2 Delivery O2 Flow Rate FiO2 04/13/17 15:15 97.6 81 18 123/79 100 04/13/17 14:04 100 04/13/17 00:00 Non Rebreather 15.0 Intake and Output 04/12/17 04/12/17 04/13/17 15:00 23:00 07:00 Intake Total 1200 ml 240 ml Output Total 14 ml 1110 ml Balance 1186 ml -870 ml Exam GENERAL: Well-nourished well-developed gentleman comfortable at rest VITAL SIGNS: per chart NECK: Supple. No JVD or lymphadenopathy. CARDIAC EXAM: S1, S2. No added sounds or murmurs. CHEST: clear bilaterally, No added sounds, rales or wheezes ABDOMEN: Soft, nontender. No guarding or rebound. EXTREMITIES: No cyanosis, clubbing or edema. NEUROLOGIC: No focal deficits Results/Medications Result Diagram: 04/13/17 0704/13/17 0706 Results 24 hrs Laboratory Tests Test 04/13/17 05:00 04/13/17 07:06 Urine Opiates Screen Positive Urine Barbiturates Negative Urine Amphetamines Screen Negative Urine Benzodiazepines Screen Negative Urine Cocaine Screen Negative Urine Cannabinoids Positive White Blood Count 7.0 Red Blood Count 4.67 L Hemoglobin 14.3 Hematocrit 43.2 Mean Corpuscular Volume 92.5 Mean Corpuscular Hemoglobin 30.6 Mean Corpuscular Hemoglobin Concent 33.1 Red Cell Distribution Width 12.5 Platelet Count 214 Mean Platelet Volume 9.8 Neutrophils % 67.0 Lymphocytes % 20.7 Monocytes % 9.8 Eosinophils % 2.0 Basophils % 0.4 Nucleated Red Blood Cells % 0.0 Neutrophils # 4.7 Lymphocytes # 1.5 Monocytes # 0.7 Eosinophils # 0.1 Basophils # 0.0 Nucleated Red Blood Cells # 0.0 Sodium Level 140 Potassium Level 4.1 Chloride Level 100 Carbon Dioxide Level 29 Anion Gap 15 Blood Urea Nitrogen 12 Creatinine 0.99 Glucose Level 133 Calcium Level 9.5 Phosphorus Level 4.6 Magnesium Level 1.8 Albumin 4.5 Medications Current Medications Lorazepam (Ativan) 0.5 mg Q8H PRN PO ANXIETY; Start 04/11/17 at 04:00 Ondansetron HCl (Zofran Inj) 4 mg Q6H PRN IV NAUSEA AND/OR VOMITING; Start 04/11/17 at 04:00 Acetaminophen (Tylenol Tab) 650 mg Q6H PRN PO PAIN LEVEL 1-3 OR FEVER; Start 04/11/17 at 04:00 Famotidine (Pepcid) 20 mg Q12 PO Last administered on 04/13/17 08:34; Admin Dose 20 MG; Start 04/11/17 at 09:00 Acetaminophen/ Hydrocodone Bitart ([place] (5/325)) 1 tab Q4H PRN PO SOB Last administered on 04/13/17 16:20; Admin Dose 1 TAB; Start 04/11/17 at 16:00 Assessment/Plan Chief Complaint/Hosp Course Assessment 1. Spontaneous pneumothorax 2. Status post second chest tube placement Plan 1. Continue chest tube to suction 2. Repeat chest x-ray in a.m. 3. Decrease O2 as tolerated Problems: ANABEL BECKER MD, [facility] Apr 13, 2017 16:24
--- NOTE | 2017-04-13 19:09 | PN ---
Date/Time of Note Date/Time of Note DATE: 04/13/17 TIME: 19:08 Assessment/Plan Lines/Catheters IV Catheter Type (from Nrsg): Saline Lock Assessment/Plan Chief Complaint/Hosp Course Pneumothorax increased in size Spontaneous episode of right pneumothorax responding to a chest tube placement will continue chest tube suction SP 2nd CT Repeat chest x-ray in a.m. Problems: Subjective 24 Hr Interval Summary Constitutional: improved Pain Control: mild Exam/Review of Systems Vital Signs Vitals Vital Signs Date Time Temp Pulse Resp B/P Pulse Ox O2 Delivery O2 Flow Rate FiO2 04/13/17 18:26 Nasal Cannula 5.0 04/13/17 16:06 73 04/13/17 15:15 97.6 18 123/79 100 04/13/17 14:04 100 Intake and Output 04/12/17 04/12/17 04/13/17 15:00 23:00 07:00 Intake Total 1200 ml 240 ml Output Total 14 ml 1110 ml Balance 1186 ml -870 ml Exam ENMT: mucosa pink and moist, nl external ears & nose, nl lips & teeth, nl nasal mucosa & septum Neck: non-tender, supple Respiratory: clear to auscultation, normal air movement Cardiovascular: nl pulses, regular rate and rhythm Gastrointestinal: nl liver, spleen, non-tender, soft Results Result Diagram: 04/13/17 0706 04/13/17 0706 HARRY EDGE MD Apr 13, 2017 19:09
[2017-04-14] VITALS (11 sets, daily range): BP systolic 112–127; BP diastolic 67–79; PULSE 51–102; RESP 17–19
[2017-04-14] MEDS: HYDROCODONE/APAP (5/325) TAB PO PRN ×4 (01:21→21:15)
[2017-04-14 06:53] LABS: BASOPHILS % 0.5 % (0.0-2.0); EOSINOPHILS # 0.2 10^3/ul (0.0-0.5); EOSINOPHILS % 3.3 % (0.0-7.0); HEMATOCRIT 43.3 % (42.0-52.0); HEMOGLOBIN 14.9 g/dl (14.0-18.0); LYMPHOCYTES # 1.5 10^3/ul (0.8-2.9); LYMPHOCYTES % 25.3 % (15.0-51.0); MEAN CORPUSCULAR HEMOGLOBIN 31.6 pg (29.0-33.0); MEAN CORPUSCULAR HGB CONC 34.4 g/dl (32.0-37.0); MEAN CORPUSCULAR VOLUME 91.9 fl (82.0-101.0); MEAN PLATELET VOLUME 9.7 fl (7.4-10.4); MONOCYTE # 0.8 10^3/ul (0.3-0.9); MONOCYTES % 13.5 % (0.0-11.0); NEUTROPHIL # 3.3 10^3/ul (1.6-7.5); NEUTROPHILS % 57.1 % (39.0-77.0); PLATELET COUNT 216 10^3/UL (140-415); RED BLOOD COUNT 4.71 10^6/ul (4.70-6.10); WHITE BLOOD COUNT 5.8 10^3/ul (4.8-10.8)
[2017-04-14 07:28] LABS: CALCIUM 9.2 mg/dl (8.4-10.2); CREATININE 0.93 mg/dl (0.61-1.24); PHOSPHORUS 5.1 mg/dl (2.5-4.9); POTASSIUM 3.9 mmol/L (3.5-5.1)
[2017-04-14 07:31] LABS: ALBUMIN 4.3 g/dl (3.3-4.9); CALCIUM 9.4 mg/dl (8.4-10.2); CREATININE 0.95 mg/dl (0.61-1.24); MAGNESIUM 1.8 mg/dl (1.7-2.5); PHOSPHORUS 5.2 mg/dl (2.5-4.9); POTASSIUM 4.1 mmol/L (3.5-5.1)
[2017-04-14] MEDS: FAMOTIDINE 20 MG TAB PO SCH ×2 (08:56→21:14)
--- NOTE | 2017-04-14 09:03 | RADRPT ---
PROCEDURE: XR Chest. CLINICAL INDICATION: Pneumonia, CHF TECHNIQUE: Single frontal view of the chest was obtained COMPARISON: 04/13/2017 FINDINGS: Stable right chest tube. Interval placement of a second right chest tube. Interval decrease in size of the right pneumothorax, which now measures up to 1.2 cm in apicopleural distance. Stable cardiomediastinal silhouette. No acute osseous abnormality. IMPRESSION: Interval placement of a second right chest tube with interval decrease in size of the right pneumoth orax. Otherwise, no convincing interval change compared to chest radiograph from prior day. RPTAT: EE Physician Bib Date Time Electronically viewed and signed by Physician Bib on 04/14/2017 09:03 /
--- NOTE | 2017-04-14 13:54 | PN ---
Date/Time of Note Date/Time of Note DATE: 04/14/17 TIME: 13:50 Assessment/Plan VTE Prophylaxis VTE Prophylaxis Intervention: SCD's Lines/Catheters IV Catheter Type (from Nrs): Saline Lock Assessment/Plan Assessment/Plan 1. Right-sided spontaneous pneumothorax s/p 2 Chest tubes - Patient had 2nd chest tube placed yesterday. - repeat CXR this am shows interval decrease in size of the right pneumothorax, which now measures up to 1.2 cm in apicopleural distance. - CT surgery on board and recommendations appreciated. continue chest tubes to wall suction. no bubbles appreciated - Pulmonology on board as well and consultation appreciated - Patient admits to smoking marijuana and counseled about effects and PTX most likely secondary to rupture of subpleural bleb. - No acute respiratory distress - Pain management 2. Marijuana use - Counseled about cessation 3. Disposition - continue monitoring while chest tubes in place. repeat CXR in am Subjective 24 Hr Interval Summary Free Text/Dictation Patient feeling more comfortably this am after second chest tube placed. Disappointed not going home today. No acute overnight events. Exam/Review of Systems Vital Signs Vitals Vital Signs Date Time Temp Pulse Resp B/P Pulse Ox O2 Delivery O2 Flow Rate FiO2 04/14/17 12:09 58 04/14/17 11:30 97.9 17 113/71 100 04/14/17 05:13 5.0 04/13/17 20:00 Nasal Cannula 04/13/17 14:04 100 Intake and Output 04/13/17 04/13/17 04/14/17 15:00 23:00 07:00 Intake Total 550 ml 400 ml Output Total 355 ml 1100 ml Balance 195 ml -700 ml Exam General: Patient in NAD when laying still, discomfort with movement, awake and alert HEENT: Atraumatic, normocephalic. The pupils are equal, round and reactive. Extraocular motor are intact Neck: Supple with full range of motion. No rigidity or meningismus Chest: 2 chest tubes present on right Lungs: Normal breath sounds over the left lung field, diminished breath sounds of the right apex, good air movement at the rest of the lower lung field. Heart: Normal S1-S2, Regular rhythm and rate. Abdomen: Soft , nontender, nondistended , bowel sounds are present. No guarding no rebound tenderness Extremities: Normal to inspection, no edema no cyanosis Results Result Diagram: 04/14/17 0531 04/14/17 0531 Results 24 hrs Laboratory Tests Test 04/14/17 05:31 White Blood Count 5.8 Red Blood Count 4.71 Hemoglobin 14.9 Hematocrit 43.3 Mean Corpuscular Volume 91.9 Mean Corpuscular Hemoglobin 31.6 Mean Corpuscular Hemoglobin Concent 34.4 Red Cell Distribution Width 12.0 Platelet Count 216 Mean Platelet Volume 9.7 Neutrophils % 57.1 Lymphocytes % 25.3 Monocytes % 13.5 H Eosinophils % 3.3 Basophils % 0.5 Nucleated Red Blood Cells % 0.0 Neutrophils # 3.3 Lymphocytes # 1.5 Monocytes # 0.8 Eosinophils # 0.2 Basophils # 0.0 Nucleated Red Blood Cells # 0.0 Sodium Level 141 Potassium Level 4.1 Chloride Level 99 Carbon Dioxide Level 30 Anion Gap 16 Blood Urea Nitrogen 12 Creatinine 0.95 Glucose Level 87 Calcium Level 9.4 Phosphorus Level 5.2 H Magnesium Level 1.8 Albumin 4.3 Medications Medications Current Medications Lorazepam (Ativan) 0.5 mg Q8H PRN PO ANXIETY; Start 04/11/17 at 04:00 Ondansetron HCl (Zofran Inj) 4 mg Q6H PRN IV NAUSEA AND/OR VOMITING; Start 04/11/17 at 04:00 Acetaminophen (Tylenol Tab) 650 mg Q6H PRN PO PAIN LEVEL 1-3 OR FEVER; Start 04/11/17 at 04:00 Famotidine (Pepcid) 20 mg Q12 PO Last administered on 04/14/17 08:56; Admin Dose 20 MG; Start 04/11/17 at 09:00 Acetaminophen/ Hydrocodone Bitart ([place] (5/325)) 1 tab Q4H PRN PO SOB Last administered on 04/14/17 11:28; Admin Dose 1 TAB; Start 04/11/17 at 16:00 ELIZABETH TRIVEDI MD Apr 14, 2017 13:54
--- NOTE | 2017-04-14 14:52 | PN ---
Date/Time of Note Date/Time of Note DATE: 04/14/17 TIME: 14:51 Assessment/Plan Lines/Catheters IV Catheter Type (from Nrsg): Saline Lock Assessment/Plan Chief Complaint/Hosp Course Pneumothorax increased in size Spontaneous episode of right pneumothorax responding to a chest tube placement will continue chest tube suction SP 2nd CT PTX Improving will continue CT Sxn Repeat chest x-ray in a.m. Problems: Subjective 24 Hr Interval Summary Constitutional: improved Pain Control: mild Exam/Review of Systems Vital Signs Vitals Vital Signs Date Time Temp Pulse Resp B/P Pulse Ox O2 Delivery O2 Flow Rate FiO2 04/14/17 12:09 58 04/14/17 11:30 97.9 17 113/71 100 04/14/17 05:13 5.0 04/13/17 20:00 Nasal Cannula 04/13/17 14:04 100 Intake and Output 04/13/17 04/13/17 04/14/17 15:00 23:00 07:00 Intake Total 550 ml 400 ml Output Total 355 ml 1100 ml Balance 195 ml -700 ml Exam ENMT: mucosa pink and moist, nl external ears & nose, nl lips & teeth, nl nasal mucosa & septum Neck: non-tender, supple Cardiovascular: nl pulses, regular rate and rhythm Gastrointestinal: nl liver, spleen, non-tender, soft Results Result Diagram: 04/14/17 0531 04/14/17 0531 HARRY EDGE MD Apr 14, 2017 14:52
--- NOTE | 2017-04-14 15:42 | CONS ---
Date/Time of Note Date/Time of Note DATE: 04/14/17 TIME: 15:41 Consult Date/Type/Reason Admit Date/Time Apr 11, 2017 at 03:50 Initial Consult Date 04/11/17 Type of Consultation: Pulmonary Subjective No events. CT with small airleak. Objective Vital Signs Date Time Temp Pulse Resp B/P Pulse Ox O2 Delivery O2 Flow Rate FiO2 04/14/17 15:11 98.6 68 18 122/79 100 04/14/17 05:13 5.0 04/13/17 20:00 Nasal Cannula 04/13/17 14:04 100 Intake and Output 04/13/17 04/13/17 04/14/17 15:00 23:00 07:00 Intake Total 550 ml 400 ml Output Total 355 ml 1100 ml Balance 195 ml -700 ml Exam HEENT: Neck supple; no JVD; no LAD CVS: RRR, S1 and S2 CHEST: Clear ABD: Soft, NT, + BS EXT: No c/c/e Results/Medications Result Diagram: 04/14/1753004/14/1731 Results 24 hrs Laboratory Tests Test 04/14/17 05:31 White Blood Count 5.8 Red Blood Count 4.71 Hemoglobin 14.9 Hematocrit 43.3 Mean Corpuscular Volume 91.9 Mean Corpuscular Hemoglobin 31.6 Mean Corpuscular Hemoglobin Concent 34.4 Red Cell Distribution Width 12.0 Platelet Count 216 Mean Platelet Volume 9.7 Neutrophils % 57.1 Lymphocytes % 25.3 Monocytes % 13.5 H Eosinophils % 3.3 Basophils % 0.5 Nucleated Red Blood Cells % 0.0 Neutrophils # 3.3 Lymphocytes # 1.5 Monocytes # 0.8 Eosinophils # 0.2 Basophils # 0.0 Nucleated Red Blood Cells # 0.0 Sodium Level 141 Potassium Level 4.1 Chloride Level 99 Carbon Dioxide Level 30 Anion Gap 16 Blood Urea Nitrogen 12 Creatinine 0.95 Glucose Level 87 Calcium Level 9.4 Phosphorus Level 5.2 H Magnesium Level 1.8 Albumin 4.3 Medications Current Medications Lorazepam (Ativan) 0.5 mg Q8H PRN PO ANXIETY; Start 04/11/17 at 04:00 Ondansetron HCl (Zofran Inj) 4 mg Q6H PRN IV NAUSEA AND/OR VOMITING; Start 04/11/17 at 04:00 Acetaminophen (Tylenol Tab) 650 mg Q6H PRN PO PAIN LEVEL 1-3 OR FEVER; Start 04/11/17 at 04:00 Famotidine (Pepcid) 20 mg Q12 PO Last administered on 04/14/17 08:56; Admin Dose 20 MG; Start 04/11/17 at 09:00 Acetaminophen/ Hydrocodone Bitart ([place] (5/325)) 1 tab Q4H PRN PO SOB Last administered on 04/14/17 15:32; Admin Dose 1 TAB; Start 04/11/17 at 16:00 Assessment/Plan Additional Assessment/Plan IMP:' 1. Primary spontaneous PTX (PSP) RECS: 1. Continue CT to suction 2. Am end-exp CXR JAYRO DAVIES MD Apr 14, 2017 15:42
[2017-04-15] VITALS (13 sets, daily range): BP systolic 108–137; BP diastolic 60–82; PULSE 40–88; RESP 18–21
--- NOTE | 2017-04-15 00:52 | PN ---
Date/Time of Note Date/Time of Note DATE: 04/15/17 TIME: 00:52 Assessment/Plan Lines/Catheters IV Catheter Type (from Nrsg): Saline Lock Assessment/Plan Chief Complaint/Hosp Course Pneumothorax increased in size Spontaneous episode of right pneumothorax responding to a chest tube placement will continue chest tube suction SP 2nd CT PTX Improving will continue CT Sxn Repeat chest x-ray in a.m. Problems: Subjective 24 Hr Interval Summary Constitutional: improved Pain Control: mild Exam/Review of Systems Vital Signs Vitals Vital Signs Date Time Temp Pulse Resp B/P Pulse Ox O2 Delivery O2 Flow Rate FiO2 04/15/17 00:07 98.2 72 19 128/78 99 04/14/17 21:35 21 04/14/17 05:13 5.0 04/13/17 20:00 Nasal Cannula Intake and Output 04/14/17 04/14/17 04/15/17 15:00 23:00 07:00 Intake Total 750 ml Output Total 500 ml Balance 250 ml Exam ENMT: mucosa pink and moist, nl external ears & nose, nl lips & teeth, nl nasal mucosa & septum Neck: non-tender, supple Respiratory: clear to auscultation, normal air movement Cardiovascular: nl pulses, regular rate and rhythm Results Result Diagram: 04/14/1731 04/14/1731 HARRY EDGE MD Apr 15, 2017 00:52
[2017-04-15] MEDS: HYDROCODONE/APAP (5/325) TAB PO PRN ×3 (01:34→20:12)
[2017-04-15 06:49] LABS: ALBUMIN 4.3 g/dl (3.3-4.9); ALBUMIN/GLOBULIN RATIO 1.48; BILIRUBIN,INDIRECT 1.1 mg/dl (0-1.1); BILIRUBIN,TOTAL 1.1 mg/dl (0.2-1.3); CALCIUM 9.2 mg/dl (8.4-10.2); CREATININE 0.96 mg/dl (0.61-1.24); MAGNESIUM 1.8 mg/dl (1.7-2.5); TOTAL PROTEIN 7.2 g/dl (6.1-8.1)
[2017-04-15] MEDS: FAMOTIDINE 20 MG TAB PO SCH ×2 (08:56→20:11)
--- NOTE | 2017-04-15 10:17 | RADRPT ---
PROCEDURE: XR Chest. CLINICAL INDICATION: Shortness of breath. TECHNIQUE: Single frontal view. COMPARISON: 04/14/2017. FINDINGS: The 2 right chest tubes are once again noted. There is a small right apical pneumothorax measuring 2 .0 cm, slightly larger than seen previously where it measured 1.2 cm. There is no left pneumothorax. The lungs are clear. The heart size is normal. There is no pleural effusion. IMPRESSION: 1. 2 right chest tubes noted. 2. Small right apical pneumothorax measuring 2 cm, slightly larger than seen previously. 3. Otherwise normal chest radiograph. RPTAT: QQ .Patrick Marie MD, MD Date Time Electronically viewed and signed by .Patrick Marie MD, MD on 04/15/2017 10:16 .R/
--- NOTE | 2017-04-15 13:32 | PN ---
Date/Time of Note Date/Time of Note DATE: 04/15/17 TIME: 13:32 Assessment/Plan VTE Prophylaxis VTE Prophylaxis Intervention: contraindicated Lines/Catheters IV Catheter Type (from Nrsg): Saline Lock Assessment/Plan Assessment/Plan 1. Right-sided spontaneous pneumothorax s/p 2 Chest tubes - Still has air leak in chest tube. Hooked to suction - repeat CXR shows increase in right pneumothorax from 1.2cm to 2cm. - Patient had 2nd chest tube placed yesterday. - CT surgery on board and recommendations appreciated. continue chest tubes to wall suction - Pulmonology on board as well and consultation appreciated - Patient admits to smoking marijuana and counseled about effects and PTX most likely secondary to rupture of subpleural bleb. - Pain management 2. Marijuana use - Counseled about cessation 3. Disposition - continue monitoring while chest tubes in place. repeat CXR in am Subjective 24 Hr Interval Summary Free Text/Dictation Patient resting comfortably with chest tubes in place. Appears air leak in second CT. No acute overnight events. Exam/Review of Systems Vital Signs Vitals Vital Signs Date Time Temp Pulse Resp B/P Pulse Ox O2 Delivery O2 Flow Rate FiO2 04/15/17 12:32 98.0 95 18 130/60 100 04/15/17 08:10 Nasal Cannula 2.0 04/14/17 21:35 21 Intake and Output 04/14/17 04/14/17 04/15/17 15:00 23:00 07:00 Intake Total 750 ml 500 ml Output Total 500 ml 700 ml Balance 250 ml -200 ml Exam General: Patient in NAD, resting comfortably, wakes to touch HEENT: Atraumatic, normocephalic. The pupils are equal, round and reactive. Extraocular motor are intact Neck: Supple with full range of motion. No rigidity or meningismus Chest: 2 chest tubes present on right, 2nd chest tube appears to have air leak Lungs: Normal breath sounds over the left lung field, diminished breath sounds of the right apex Heart: Normal S1-S2, Regular rhythm and rate. Abdomen: Soft , nontender, nondistended , bowel sounds are present. No guarding no rebound tenderness Extremities: Normal to inspection, no edema no cyanosis Results Result Diagram: 04/14/17 0531 04/15/17 0529 Results 24 hrs Laboratory Tests Test 04/15/17 05:29 Sodium Level 140 Potassium Level 4.0 Chloride Level 98 Carbon Dioxide Level 32 H Anion Gap 14 Blood Urea Nitrogen 12 Creatinine 0.96 Glucose Level 91 Calcium Level 9.2 Magnesium Level 1.8 Total Bilirubin 1.1 Direct Bilirubin 0.00 Indirect Bilirubin 1.1 Aspartate Amino Transf (AST/SGOT) 26 Alanine Aminotransferase (ALT/SGPT) 31 Alkaline Phosphatase 63 Total Protein 7.2 Albumin 4.3 Globulin 2.90 Albumin/Globulin Ratio 1.48 Medications Medications Current Medications Lorazepam (Ativan) 0.5 mg Q8H PRN PO ANXIETY; Start 04/11/17 at 04:00 Ondansetron HCl (Zofran Inj) 4 mg Q6H PRN IV NAUSEA AND/OR VOMITING; Start 04/11/17 at 04:00 Acetaminophen (Tylenol Tab) 650 mg Q6H PRN PO PAIN LEVEL 1-3 OR FEVER; Start 04/11/17 at 04:00 Famotidine (Pepcid) 20 mg Q12 PO Last administered on 04/15/17 08:56; Admin Dose 20 MG; Start 04/11/17 at 09:00 Acetaminophen/ Hydrocodone Bitart ([place] (5/325)) 1 tab Q4H PRN PO SOB Last administered on 04/15/17 05:03; Admin Dose 1 TAB; Start 04/11/17 at 16:00 ELIZABETH TRIVEDI MD Apr 15, 2017 13:32
--- NOTE | 2017-04-15 15:53 | CONS ---
Date/Time of Note Date/Time of Note DATE: 04/15/17 TIME: 15:52 Consult Date/Type/Reason Admit Date/Time Apr 11, 2017 at 03:50 Initial Consult Date 04/11/17 Type of Consultation: Pulmonary Subjective No events. Still with air leak. Objective Vital Signs Date Time Temp Pulse Resp B/P Pulse Ox O2 Delivery O2 Flow Rate FiO2 04/15/17 12:32 98.0 95 18 130/60 100 04/15/17 08:10 Nasal Cannula 2.0 04/14/17 21:35 21 Intake and Output 04/14/17 04/14/17 04/15/17 15:00 23:00 07:00 Intake Total 750 ml 500 ml Output Total 500 ml 700 ml Balance 250 ml -200 ml Exam HEENT: Neck supple; no JVD; no LAD CVS: RRR, S1 and S2 CHEST: Clear ABD: Soft, NT, + BS EXT: No c/c/e Results/Medications Result Diagram: 04/14/17 0531 04/15/17 0529 Results 24 hrs Laboratory Tests Test 04/15/17 05:29 Sodium Level 140 Potassium Level 4.0 Chloride Level 98 Carbon Dioxide Level 32 H Anion Gap 14 Blood Urea Nitrogen 12 Creatinine 0.96 Glucose Level 91 Calcium Level 9.2 Magnesium Level 1.8 Total Bilirubin 1.1 Direct Bilirubin 0.00 Indirect Bilirubin 1.1 Aspartate Amino Transf (AST/SGOT) 26 Alanine Aminotransferase (ALT/SGPT) 31 Alkaline Phosphatase 63 Total Protein 7.2 Albumin 4.3 Globulin 2.90 Albumin/Globulin Ratio 1.48 Medications Current Medications Lorazepam (Ativan) 0.5 mg Q8H PRN PO ANXIETY; Start 04/11/17 at 04:00 Ondansetron HCl (Zofran Inj) 4 mg Q6H PRN IV NAUSEA AND/OR VOMITING; Start 04/11/17 at 04:00 Acetaminophen (Tylenol Tab) 650 mg Q6H PRN PO PAIN LEVEL 1-3 OR FEVER; Start 04/11/17 at 04:00 Famotidine (Pepcid) 20 mg Q12 PO Last administered on 04/15/17 08:56; Admin Dose 20 MG; Start 04/11/17 at 09:00 Acetaminophen/ Hydrocodone Bitart ([place] (5/325)) 1 tab Q4H PRN PO SOB Last administered on 11/5/17at 05:03; Admin Dose 1 TAB; Start 04/11/17 at 16:00 Assessment/Plan Additional Assessment/Plan IMP: 1. Primary spontaneous PTX (PSP) with persistent air leak s/p Chest tube x 2 RECS: 1. Continue CTs to suction 20 cm H20 2. Am end-exp CXR JAYRO DAVIES MD Apr 15, 2017 15:53
[2017-04-16] VITALS (13 sets, daily range): BP systolic 95–116; BP diastolic 53–81; PULSE 40–80; RESP 16–20
[2017-04-16] MEDS ORDERED: DIPHENHYDRAMINE 50 MG INJ IV ONE (01:30)
[2017-04-16] MEDS: FAMOTIDINE 20 MG TAB PO SCH ×2 (08:37→20:09)
[2017-04-16 08:46] LABS: BASOPHILS % 0.6 % (0.0-2.0); EOSINOPHILS # 0.2 10^3/ul (0.0-0.5); EOSINOPHILS % 3.7 % (0.0-7.0); HEMATOCRIT 44.2 % (42.0-52.0); HEMOGLOBIN 15.4 g/dl (14.0-18.0); LYMPHOCYTES # 1.8 10^3/ul (0.8-2.9); LYMPHOCYTES % 27.1 % (15.0-51.0); MEAN CORPUSCULAR HEMOGLOBIN 31.5 pg (29.0-33.0); MEAN CORPUSCULAR HGB CONC 34.8 g/dl (32.0-37.0); MEAN CORPUSCULAR VOLUME 90.4 fl (82.0-101.0); MEAN PLATELET VOLUME 9.6 fl (7.4-10.4); MONOCYTE # 0.8 10^3/ul (0.3-0.9); MONOCYTES % 11.7 % (0.0-11.0); NEUTROPHIL # 3.7 10^3/ul (1.6-7.5); NEUTROPHILS % 56.7 % (39.0-77.0); PLATELET COUNT 226 10^3/UL (140-415); RED BLOOD COUNT 4.89 10^6/ul (4.70-6.10); RED CELL DISTRIBUTION WIDTH 11.9 % (11.5-14.5); WHITE BLOOD COUNT 6.6 10^3/ul (4.8-10.8)
[2017-04-16 09:33] LABS: ALBUMIN 4.6 g/dl (3.3-4.9); CALCIUM 9.7 mg/dl (8.4-10.2); CREATININE 0.95 mg/dl (0.61-1.24); PHOSPHORUS 4.8 mg/dl (2.5-4.9); POTASSIUM 3.8 mmol/L (3.5-5.1)
--- NOTE | 2017-04-16 10:03 | RADRPT ---
PROCEDURE: XR Chest. CLINICAL INDICATION: Shortness of breath. Right pneumothorax. TECHNIQUE: Single frontal view. COMPARISON: 04/15/2017. FINDINGS: The 2 right chest tubes are once again noted. There is a small right apical pneumothorax measuring 2 .0 cm, unchanged. There is no left pneumothorax. The lungs are clear. The heart size is normal. There is no pleural effusion. IMPRESSION: 1. Two right chest tubes. 2. Small right apical pneumothorax measuring 2 cm, unchanged. 3. Otherwise unremarkable chest radiograph. RPTAT: QQ .Patrick Marie MD, MD Date Time Electronically viewed and signed by .Patrick Marie MD, MD on 04/16/2017 10:03 .R/
--- NOTE | 2017-04-16 13:45 | CONS ---
Date/Time of Note Date/Time of Note DATE: 04/16/17 TIME: 13:44 Consult Date/Type/Reason Admit Date/Time Apr 11, 2017 at 03:50 Initial Consult Date 04/11/17 Type of Consultation: Pulmonary Subjective Patient comfortable sleeping this morning no new events. No evidence of a leak and chest tube. Objective Vital Signs Date Time Temp Pulse Resp B/P Pulse Ox O2 Delivery O2 Flow Rate FiO2 04/16/17 12:12 57 04/16/17 11:31 97.7 20 95/53 100 04/16/17 09:53 Nasal Cannula 2.5 04/14/17 21:35 21 Intake and Output 04/15/17 04/15/17 04/16/17 15:00 23:00 07:00 Intake Total 750 ml 800 ml Output Total 1500 ml 1200 ml Balance -750 ml -400 ml Exam GENERAL: VITAL SIGNS: per chart NECK: Supple. No JVD or lymphadenopathy. CARDIAC EXAM: S1, S2. No added sounds or murmurs. CHEST: clear bilaterally, No added sounds, rales or wheezes ABDOMEN: Soft, nontender. No guarding or rebound. EXTREMITIES: No cyanosis, clubbing or edema. NEUROLOGIC: Generalized weakness. No focal deficits. Results/Medications Result Diagram: 04/16/1772004/16/17720 Results 24 hrs Laboratory Tests Test 04/16/17 07:21 White Blood Count 6.6 Red Blood Count 4.89 Hemoglobin 15.4 Hematocrit 44.2 Mean Corpuscular Volume 90.4 Mean Corpuscular Hemoglobin 31.5 Mean Corpuscular Hemoglobin Concent 34.8 Red Cell Distribution Width 11.9 Platelet Count 226 Mean Platelet Volume 9.6 Neutrophils % 56.7 Lymphocytes % 27.1 Monocytes % 11.7 H Eosinophils % 3.7 Basophils % 0.6 Nucleated Red Blood Cells % 0.0 Neutrophils # 3.7 Lymphocytes # 1.8 Monocytes # 0.8 Eosinophils # 0.2 Basophils # 0.0 Nucleated Red Blood Cells # 0.0 Sodium Level 142 Potassium Level 3.8 Chloride Level 100 Carbon Dioxide Level 32 H Anion Gap 14 Blood Urea Nitrogen 15 Creatinine 0.95 Glucose Level 87 Calcium Level 9.7 Phosphorus Level 4.8 Magnesium Level 2.0 Albumin 4.6 Medications Current Medications Lorazepam (Ativan) 0.5 mg Q8H PRN PO ANXIETY; Start 04/11/17 at 04:00 Ondansetron HCl (Zofran Inj) 4 mg Q6H PRN IV NAUSEA AND/OR VOMITING; Start 04/11/17 at 04:00 Acetaminophen (Tylenol Tab) 650 mg Q6H PRN PO PAIN LEVEL 1-3 OR FEVER; Start 04/11/17 at 04:00 Famotidine (Pepcid) 20 mg Q12 PO Last administered on 04/16/17 08:37; Admin Dose 20 MG; Start 04/11/17 at 09:00 Acetaminophen/ Hydrocodone Bitart ([place] (5/325)) 1 tab Q4H PRN PO SOB Last administered on 04/15/17 20:12; Admin Dose 1 TAB; Start 04/11/17 at 16:00 Assessment/Plan Chief Complaint/Hosp Course Assessment 1. Spontaneous pneumothorax 2. Status post second chest tube placement still has pneumothorax right apical small nature. Plan 1. Continue chest tube to suction 2. Repeat chest x-ray in a.m. 3. Decrease O2 as tolerated May need thoracic input and possible pleurodesis. Problems: ANABEL BECKER MD, [facility] Apr 16, 2017 13:45
--- NOTE | 2017-04-16 15:17 | PN ---
Date/Time of Note Date/Time of Note DATE: 04/16/17 TIME: 15:16 Assessment/Plan Lines/Catheters IV Catheter Type (from Nrsg): Saline Lock [place]keon in Place (from Nrsg): No Assessment/Plan Chief Complaint/Hosp Course Pneumothorax increased in size Spontaneous episode of right pneumothorax responding to a chest tube placement will continue chest tube suction SP 2nd CT PTX Improving, only [address] Sxn Repeat chest x-ray in a.m. Problems: Subjective 24 Hr Interval Summary Constitutional: improved Pain Control: mild Exam/Review of Systems Vital Signs Vitals Vital Signs Date Time Temp Pulse Resp B/P Pulse Ox O2 Delivery O2 Flow Rate FiO2 04/16/17 12:12 57 04/16/17 11:31 97.7 20 95/53 100 04/16/17 09:53 Nasal Cannula 2.5 04/14/17 21:35 21 Intake and Output 04/15/17 04/15/17 04/16/17 15:00 23:00 07:00 Intake Total 750 ml 800 ml Output Total 1500 ml 1200 ml Balance -750 ml -400 ml Exam Neck: non-tender, supple Respiratory: clear to auscultation, normal air movement Cardiovascular: nl pulses, regular rate and rhythm Gastrointestinal: nl liver, spleen, non-tender, soft Results Result Diagram: 04/16/17 0721 04/16/17 07 HARRY EDGE MD Apr 16, 2017 15:17
[2017-04-16] MEDS ORDERED: DIPHENHYDRAMINE 50 MG CAP PO ONE (16:30)
--- NOTE | 2017-04-16 16:34 | PN ---
Date/Time of Note Date/Time of Note DATE: 04/16/17 TIME: 16:32 Assessment/Plan VTE Prophylaxis VTE Prophylaxis Intervention: SCD's Lines/Catheters IV [facility] Saline Lock Urinary Cath still in place: No Assessment/Plan Chief Complaint/Hosp Course 1. Right-sided spontaneous pneumothorax s/p 2 Chest tubes - Still has air leak in chest tube. Hooked to suction - repeat CXR shows increase in right pneumothorax, but small - Patient had 2nd chest tube placed - CT surgery on board and recommendations appreciated. continue chest tubes to wall suction - Pulmonology on board as well and consultation appreciated - Patient admits to smoking marijuana and counseled about effects and PTX most likely secondary to rupture of subpleural bleb. - Pain management 2. Marijuana use - Counseled about cessation 3. Disposition - continue monitoring while chest tubes in place. repeat CXR in am Problems: Subjective 24 Hr Interval Summary Free Text/Dictation no acute complaints Exam/Review of Systems Vital Signs Vitals Vital Signs Date Time Temp Pulse Resp B/P Pulse Ox O2 Delivery O2 Flow Rate FiO2 04/16/17 16:11 75 04/16/17 15:42 98.2 20 106/59 100 04/16/17 09:53 Nasal Cannula 2.5 04/14/17 21:35 21 Intake and Output 04/15/17 04/15/17 04/16/17 15:00 23:00 07:00 Intake Total 750 ml 800 ml Output Total 1500 ml 1200 ml Balance -750 ml -400 ml Exam Physical exam General: Patient is laying in bed and answers questions appropriately Mentation: Patient is alert and oriented 4, Head: Normocephalic atraumatic Eyes: EOMI, pupils reactive to light Neck: Supple, nontender, midline Respiratory: diminished breath sounds on right Cardiovascular: regular rate, no obvious murmurs Gastrointestinal: non-tender to palpation, bowel sounds heard. Neurological: Moves all extremities spontaneously Skin: Chest tubes placed. Results Result Diagram: 04/16/1772004/16/17 0721 Results 24 hrs Laboratory Tests Test 04/16/17 07:21 White Blood Count 6.6 Red Blood Count 4.89 Hemoglobin 15.4 Hematocrit 44.2 Mean Corpuscular Volume 90.4 Mean Corpuscular Hemoglobin 31.5 Mean Corpuscular Hemoglobin Concent 34.8 Red Cell Distribution Width 11.9 Platelet Count 226 Mean Platelet Volume 9.6 Neutrophils % 56.7 Lymphocytes % 27.1 Monocytes % 11.7 H Eosinophils % 3.7 Basophils % 0.6 Nucleated Red Blood Cells % 0.0 Neutrophils # 3.7 Lymphocytes # 1.8 Monocytes # 0.8 Eosinophils # 0.2 Basophils # 0.0 Nucleated Red Blood Cells # 0.0 Sodium Level 142 Potassium Level 3.8 Chloride Level 100 Carbon Dioxide Level 32 H Anion Gap 14 Blood Urea Nitrogen 15 Creatinine 0.95 Glucose Level 87 Calcium Level 9.7 Phosphorus Level 4.8 Magnesium Level 2.0 Albumin 4.6 Medications Medications Current Medications Lorazepam (Ativan) 0.5 mg Q8H PRN PO ANXIETY; Start 04/11/17 at 04:00 Ondansetron HCl (Zofran Inj) 4 mg Q6H PRN IV NAUSEA AND/OR VOMITING; Start 04/11/17 at 04:00 Acetaminophen (Tylenol Tab) 650 mg Q6H PRN PO PAIN LEVEL 1-3 OR FEVER; Start 04/11/17 at 04:00 Famotidine (Pepcid) 20 mg Q12 PO Last administered on 04/16/17 08:37; Admin Dose 20 MG; Start 04/11/17 at 09:00 Acetaminophen/ Hydrocodone Bitart ([place] (5/325)) 1 tab Q4H PRN PO SOB Last administered on 04/15/17 20:12; Admin Dose 1 TAB; Start 04/11/17 at 16:00 Hydrocortisone (Hydrocortisone 2.5% Cr) 1 applic BID TOP ; Start 04/16/17 at 21: 00; Status UNV GRACIA CORDON Apr 16, 2017 16:34
--- NOTE | 2017-04-16 18:52 | RADRPT ---
PROCEDURE: XR Chest. CLINICAL INDICATION: Right pneumothorax. TECHNIQUE: Single frontal view. COMPARISON: Prior study done earlier the same day. FINDINGS: The 2 right chest tubes are once again noted. There is a small right apical pneumothorax measuring 2 cm, unchanged. There is no left pneumothorax. The heart size is normal. There is no pleural effusion. The lungs are clear. IMPRESSION: 1. No change from the prior study done earlier the same day. 2. Small right apical pneumothorax measuring 2 cm. 3. 2 right chest tubes. 4. Otherwise unremarkable chest radiograph. RPTAT: QQ .Patrick Marie MD, MD Date Time Electronically viewed and signed by .Patrick Marie MD, MD on 04/16/2017 17:24 .R/
[2017-04-16] MEDS: HYDROCODONE/APAP (5/325) TAB PO PRN ×2 (20:08→22:09)
[2017-04-16] MEDS: HYDROCORTISONE 2.5% 20 GM CR TOP SCH (20:10)
[2017-04-17] VITALS (12 sets, daily range): BP systolic 98–148; BP diastolic 51–75; PULSE 49–73; RESP 16–18
[2017-04-17] MEDS: HYDROCODONE/APAP (5/325) TAB PO PRN ×5 (00:11→23:01)
[2017-04-17 07:19] LABS: BASOPHILS % 0.5 % (0.0-2.0); EOSINOPHILS # 0.2 10^3/ul (0.0-0.5); EOSINOPHILS % 2.4 % (0.0-7.0); HEMATOCRIT 42.2 % (42.0-52.0); LYMPHOCYTES # 1.4 10^3/ul (0.8-2.9); LYMPHOCYTES % 18.4 % (15.0-51.0); MEAN CORPUSCULAR HEMOGLOBIN 32.1 pg (29.0-33.0); MEAN CORPUSCULAR HGB CONC 35.5 g/dl (32.0-37.0); MEAN CORPUSCULAR VOLUME 90.4 fl (82.0-101.0); MEAN PLATELET VOLUME 9.2 fl (7.4-10.4); MONOCYTE # 0.9 10^3/ul (0.3-0.9); MONOCYTES % 11.3 % (0.0-11.0); NEUTROPHIL # 5.2 10^3/ul (1.6-7.5); NEUTROPHILS % 67.1 % (39.0-77.0); PLATELET COUNT 218 10^3/UL (140-415); RED BLOOD COUNT 4.67 10^6/ul (4.70-6.10); RED CELL DISTRIBUTION WIDTH 11.9 % (11.5-14.5); WHITE BLOOD COUNT 7.8 10^3/ul (4.8-10.8)
[2017-04-17 07:49] LABS: CALCIUM 9.6 mg/dl (8.4-10.2); CREATININE 0.95 mg/dl (0.61-1.24); MAGNESIUM 1.8 mg/dl (1.7-2.5); PHOSPHORUS 4.1 mg/dl (2.5-4.9); POTASSIUM 3.7 mmol/L (3.5-5.1)
[2017-04-17] MEDS: HYDROCORTISONE 2.5% 20 GM CR TOP SCH (08:35)
[2017-04-17] MEDS: FAMOTIDINE 20 MG TAB PO SCH ×2 (08:35→20:10)
--- NOTE | 2017-04-17 11:35 | CONS ---
Date/Time of Note Date/Time of Note DATE: 04/17/17 TIME: 11:34 Consult Date/Type/Reason Admit Date/Time Apr 11, 2017 at 03:50 Initial Consult Date 04/11/17 Type of Consultation: Pulmonary Subjective Patient sleeping this morning. Comfortable in no respiratory distress. Continues chest tube to suction. Objective Vital Signs Date Time Temp Pulse Resp B/P Pulse Ox O2 Delivery O2 Flow Rate FiO2 04/17/17 08:00 53 04/17/17 07:48 98.2 18 100/51 97 04/16/17 19:50 Nasal Cannula 2.0 04/14/17 21:35 21 Intake and Output 04/16/17 04/16/17 04/17/17 15:00 23:00 07:00 Intake Total 1500 ml 1300 ml Output Total 0 ml 1200 ml 1525 ml Balance 0 ml 300 ml -225 ml Exam VITAL SIGNS: per chart well-nourished well-developed young gentleman chest tubes in place NECK: Supple. No JVD or lymphadenopathy. CARDIAC EXAM: S1, S2. No added sounds or murmurs. CHEST: clear bilaterally, No added sounds, rales or wheezes ABDOMEN: Soft, nontender. No guarding or rebound. EXTREMITIES: No cyanosis, clubbing or edema. NEUROLOGIC: Generalized weakness. No focal deficits. Results/Medications Result Diagram: 04/17/17 0642 04/17/17 0642 Results 24 hrs Laboratory Tests Test 04/17/17 06:42 White Blood Count 7.8 Red Blood Count 4.67 L Hemoglobin 15.0 Hematocrit 42.2 Mean Corpuscular Volume 90.4 Mean Corpuscular Hemoglobin 32.1 Mean Corpuscular Hemoglobin Concent 35.5 Red Cell Distribution Width 11.9 Platelet Count 218 Mean Platelet Volume 9.2 Neutrophils % 67.1 Lymphocytes % 18.4 Monocytes % 11.3 H Eosinophils % 2.4 Basophils % 0.5 Nucleated Red Blood Cells % 0.0 Neutrophils # 5.2 Lymphocytes # 1.4 Monocytes # 0.9 Eosinophils # 0.2 Basophils # 0.0 Nucleated Red Blood Cells # 0.0 Sodium Level 141 Potassium Level 3.7 Chloride Level 100 Carbon Dioxide Level 33 H Anion Gap 12 Blood Urea Nitrogen 17 Creatinine 0.95 Glucose Level 101 Calcium Level 9.6 Phosphorus Level 4.1 Magnesium Level 1.8 Medications Current Medications Lorazepam (Ativan) 0.5 mg Q8H PRN PO ANXIETY; Start 04/11/17 at 04:00 Ondansetron HCl (Zofran Inj) 4 mg Q6H PRN IV NAUSEA AND/OR VOMITING; Start 04/11/17 at 04:00 Acetaminophen (Tylenol Tab) 650 mg Q6H PRN PO PAIN LEVEL 1-3 OR FEVER; Start 04/11/17 at 04:00 Famotidine (Pepcid) 20 mg Q12 PO Last administered on 04/17/17 08:35; Admin Dose 20 MG; Start 04/11/17 at 09:00 Acetaminophen/ Hydrocodone Bitart ([place] (5/325)) 1 tab Q4H PRN PO SOB Last administered on 04/17/17 04:33; Admin Dose 1 TAB; Start 04/11/17 at 16:00 Hydrocortisone (Hydrocortisone 2.5% Cr) 1 applic BID TOP Last administered on 04/17/17 08:35; Admin Dose 1 APPLIC; Start 04/16/17 at 21:00 Assessment/Plan Chief Complaint/Hosp Course Assessment 1. Spontaneous pneumothorax 2. Status post second chest tube placement still has pneumothorax right apical small nature. Plan 1. Continue chest tube to suction 2. Repeat chest x-ray ending this morning. 3. Decrease O2 as tolerated May need thoracic input and possible pleurodesis. Problems: ANABEL BECKER MD, [facility] Apr 17, 2017 11:35
--- NOTE | 2017-04-17 14:04 | RADRPT ---
PROCEDURE: XR Chest. CLINICAL INDICATION: Pneumothorax. TECHNIQUE: Single frontal view of the chest. COMPARISON: Chest radiograph dated April 16, 2017. FINDINGS: Right-sided pigtail chest tube catheter tip overlying the right mid lung field, stable position. Add itional chest tube tip also overlying the right mid lung field, stable position. The heart is normal in size. Again seen is a small right apical pneumothorax with an air gap of approximately 1.9 cm, grossly unc hanged when compared to prior study. No focal consolidations or pleural effusions. The osseous structures are grossly unremarkable. IMPRESSION: 1. Small right apical pneumothorax with an air gap of 1.9 cm, grossly unchanged compared to prior s lorenzady. 2 right chest tubes in stable position. RPTAT:AAJJ Physician Emi Date Time Electronically viewed and signed by Brooke Oropeza Physician on 04/17/2017 14:03 QL/
[2017-04-17] MEDS: DOCUSATE SODIUM 100 MG CAP PO SCH ×2 (14:11→20:11)
[2017-04-17] MEDS ORDERED: POLYETHYLENE GLYCOL 17 GM PACKET PO PRN (14:30)
--- NOTE | 2017-04-17 15:22 | PN ---
Date/Time of Note Date/Time of Note DATE: 04/17/17 TIME: 15:21 Assessment/Plan VTE Prophylaxis VTE Prophylaxis Intervention: SCD's Lines/Catheters IV [facility]from [facility] Saline Lock Urinary Cath still in place: No Assessment/Plan Chief Complaint/Hosp Course 1. Right-sided spontaneous pneumothorax s/p 2 Chest tubes - Still has air leak in chest tube. Hooked to suction - repeat CXR shows increase in right pneumothorax, but small - Patient had 2nd chest tube placed - CT surgery on board and recommendations appreciated. continue chest tubes to wall suction - Pulmonology on board as well and consultation appreciated - Patient admits to smoking marijuana and counseled about effects and PTX most likely secondary to rupture of subpleural bleb. - Pain management 2. Marijuana use - Counseled about cessation #irritation around nasal mucosa -2/2 NC plastic 3. Disposition - continue monitoring while chest tubes in place. repeat CXR in am Problems: Subjective 24 Hr Interval Summary Free Text/Dictation irritation seen yesterday was due to NC plastic, no more irritation. no itching of arms. Exam/Review of Systems Vital Signs Vitals Vital Signs Date Time Temp Pulse Resp B/P Pulse Ox O2 Delivery O2 Flow Rate FiO2 04/17/17 15:11 98.5 71 18 115/65 100 04/17/17 08:20 Nasal Cannula 2.0 04/14/17 21:35 21 Intake and Output 04/16/17 04/16/17 04/17/17 15:00 23:00 07:00 Intake Total 1500 ml 1300 ml Output Total 0 ml 1200 ml 1525 ml Balance 0 ml 300 ml -225 ml Exam Physical exam General: Patient is laying in bed and answers questions appropriately Mentation: Patient is alert and oriented 4, Head: Normocephalic atraumatic Eyes: EOMI, pupils reactive to light Neck: Supple, nontender, midline Respiratory: diminished breath sounds on right Cardiovascular: regular rate, no obvious murmurs Gastrointestinal: non-tender to palpation, bowel sounds heard. Neurological: Moves all extremities spontaneously Skin: Chest tubes placed. Results Result Diagram: 04/17/17 0642 04/17/17 0642 Results 24 hrs Laboratory Tests Test 04/17/17 06:42 White Blood Count 7.8 Red Blood Count 4.67 L Hemoglobin 15.0 Hematocrit 42.2 Mean Corpuscular Volume 90.4 Mean Corpuscular Hemoglobin 32.1 Mean Corpuscular Hemoglobin Concent 35.5 Red Cell Distribution Width 11.9 Platelet Count 218 Mean Platelet Volume 9.2 Neutrophils % 67.1 Lymphocytes % 18.4 Monocytes % 11.3 H Eosinophils % 2.4 Basophils % 0.5 Nucleated Red Blood Cells % 0.0 Neutrophils # 5.2 Lymphocytes # 1.4 Monocytes # 0.9 Eosinophils # 0.2 Basophils # 0.0 Nucleated Red Blood Cells # 0.0 Sodium Level 141 Potassium Level 3.7 Chloride Level 100 Carbon Dioxide Level 33 H Anion Gap 12 Blood Urea Nitrogen 17 Creatinine 0.95 Glucose Level 101 Calcium Level 9.6 Phosphorus Level 4.1 Magnesium Level 1.8 Medications Medications Current Medications Lorazepam (Ativan) 0.5 mg Q8H PRN PO ANXIETY; Start 04/11/17 at 04:00 Ondansetron HCl (Zofran Inj) 4 mg Q6H PRN IV NAUSEA AND/OR VOMITING; Start 04/11/17 at 04:00 Acetaminophen (Tylenol Tab) 650 mg Q6H PRN PO PAIN LEVEL 1-3 OR FEVER; Start 04/11/17 at 04:00 Famotidine (Pepcid) 20 mg Q12 PO Last administered on 04/17/17 08:35; Admin Dose 20 MG; Start 04/11/17 at 09:00 Acetaminophen/ Hydrocodone Bitart ([place] (5/325)) 1 tab Q4H PRN PO SOB Last administered on 04/17/17 14:11; Admin Dose 1 TAB; Start 04/11/17 at 16:00 Hydrocortisone (Hydrocortisone 2.5% Cr) 1 applic BID TOP Last administered on 04/17/17 08:35; Admin Dose 1 APPLIC; Start 04/16/17 at 21:00 Docusate Sodium (Colace) 100 mg BID PO Last administered on 04/17/17 14:11; Admin Dose 100 MG; Start 04/17/17 at 14:30 Polyethylene Glycol (Miralax) 17 gm DAILY PRN PO CONSTIPATION Last administered on 04/17/17 14:11; Admin Dose 17 GM; Start 04/17/17 at 14:30 GRACIA CORDON Apr 17, 2017 15:22
--- NOTE | 2017-04-17 21:04 | PN ---
Date/Time of Note Date/Time of Note DATE: 04/17/17 TIME: 21:04 Assessment/Plan Lines/Catheters IV Catheter Type (from Nrsg): Saline Lock Mckeon in Place (from Nrsg): No Assessment/Plan Chief Complaint/Hosp Course Pneumothorax increased in size Spontaneous episode of right pneumothorax responding to a chest tube placement will continue chest tube suction SP 2nd CT PTX Improving, only 1.[address] Sxn Repeat chest x-ray in a.m. Problems: Subjective 24 Hr Interval Summary Constitutional: improved Pain Control: mild Exam/Review of Systems Vital Signs Vitals Vital Signs Date Time Temp Pulse Resp B/P Pulse Ox O2 Delivery O2 Flow Rate FiO2 04/17/17 19:12 98.2 76 16 148/75 100 04/17/17 08:20 Nasal Cannula 2.0 04/14/17 21:35 21 Intake and Output 04/16/17 04/16/17 04/17/17 14:59 22:59 06:59 Intake Total 1500 ml 1300 ml Output Total 0 ml 1200 ml 1525 ml Balance 0 ml 300 ml -225 ml Exam ENMT: mucosa pink and moist, nl external ears & nose, nl lips & teeth, nl nasal mucosa & septum Neck: non-tender, supple Respiratory: clear to auscultation, normal air movement Cardiovascular: nl pulses, regular rate and rhythm Results Result Diagram: 04/17/17 0642 04/17/17 0642 HARRY EDGE MD Apr 17, 2017 21:04
[2017-04-18] VITALS (12 sets, daily range): BP systolic 93–145; BP diastolic 58–79; PULSE 40–86; RESP 16–20
[2017-04-18] MEDS: HYDROCODONE/APAP (5/325) TAB PO PRN ×4 (05:59→22:37)
--- NOTE | 2017-04-18 08:47 | RADRPT ---
PROCEDURE: XR Chest. CLINICAL INDICATION: Follow-up pneumothorax TECHNIQUE: Single portable view of the chest was obtained. COMPARISON: 04/17/2017 and 04/16/2017 FINDINGS: Stable position of 2 right-sided chest tubes. Smaller residual right pneumothorax measuring 5 mm. No rmal cardiomediastinal silhouette. The lungs are clear. No pleural effusion. IMPRESSION: Decreased size of right apical pneumothorax. Stable position of right chest tubes. RPTAT:AAJJ Physician Lois Date Time Electronically viewed and signed by Michelle Patel Physician on 04/18/2017 08:47 /
[2017-04-18] MEDS: FAMOTIDINE 20 MG TAB PO SCH ×2 (09:34→21:03)
[2017-04-18] MEDS: DOCUSATE SODIUM 100 MG CAP PO SCH ×2 (09:34→21:03)
--- NOTE | 2017-04-18 09:54 | CONS ---
Date/Time of Note Date/Time of Note DATE: 04/18/17 TIME: 09:53 Consult Date/Type/Reason Admit Date/Time Apr 11, 2017 at 03:50 Initial Consult Date 04/11/17 Type of Consultation: Pulmonary Subjective Patient comfortable this morning. No new events. Continues chest tube to suction. Objective Vital Signs Date Time Temp Pulse Resp B/P Pulse Ox O2 Delivery O2 Flow Rate FiO2 04/18/17 08:46 58 04/18/17 07:49 97.1 19 101/64 100 04/17/17 08:20 Nasal Cannula 2.0 04/14/17 21:35 21 Intake and Output 04/17/17 04/17/17 04/18/17 15:00 23:00 07:00 Intake Total 1200 ml 500 ml Output Total 0 ml 550 ml 600 ml Balance 0 ml 650 ml -100 ml Exam VITAL SIGNS: per chart well-nourished well-developed young gentleman chest tubes in place NECK: Supple. No JVD or lymphadenopathy. CARDIAC EXAM: S1, S2. No added sounds or murmurs. CHEST: clear bilaterally, No added sounds, rales or wheezes ABDOMEN: Soft, nontender. No guarding or rebound. EXTREMITIES: No cyanosis, clubbing or edema. NEUROLOGIC: Generalized weakness. No focal deficits. Results/Medications Result Diagram: 04/17/17 0642 04/17/17 0642 Results 24 hrs Chest x-ray shows almost complete resolution of right pneumothorax small apical pneumo still present. Medications Current Medications Lorazepam (Ativan) 0.5 mg Q8H PRN PO ANXIETY; Start 04/11/17 at 04:00 Ondansetron HCl (Zofran Inj) 4 mg Q6H PRN IV NAUSEA AND/OR VOMITING; Start 04/11/17 at 04:00 Acetaminophen (Tylenol Tab) 650 mg Q6H PRN PO PAIN LEVEL 1-3 OR FEVER; Start 04/11/17 at 04:00 Famotidine (Pepcid) 20 mg Q12 PO Last administered on 04/18/17 09:34; Admin Dose 20 MG; Start 04/11/17 at 09:00 Acetaminophen/ Hydrocodone Bitart ([place] (5/325)) 1 tab Q4H PRN PO SOB Last administered on 04/18/17 05:59; Admin Dose 1 TAB; Start 04/11/17 at 16:00 Docusate Sodium (Colace) 100 mg BID PO Last administered on 04/18/17 09:34; Admin Dose 100 MG; Start 04/17/17 at 14:30 Polyethylene Glycol (Miralax) 17 gm DAILY PRN PO CONSTIPATION Last administered on 04/17/17 14:11; Admin Dose 17 GM; Start 04/17/17 at 14:30 Assessment/Plan Chief Complaint/Hosp Course Assessment 1. Spontaneous pneumothorax 2. Status post second chest tube placement still has pneumothorax right apical small nature. Plan 1. Continue chest tube to suction 2. Repeat chest x-ray in a.m. 3. Decrease O2 as tolerated Discussed with thoracic surgery. Problems: A[facility]EL [facility], [facility] Apr 18, 2017 09:54
--- NOTE | 2017-04-18 15:06 | PN ---
Date/Time of Note Date/Time of Note DATE: 04/18/17 TIME: 15:05 Assessment/Plan VTE Prophylaxis VTE Prophylaxis Intervention: SCD's Lines/Catheters IV Catheter Type (from Nrs): Saline Lock Urinary Cath still in place: No Assessment/Plan Chief Complaint/Hosp Course 1. Right-sided spontaneous pneumothorax s/p 2 Chest tubes - Still has air leak in chest tube. Hooked to suction - repeat CXR shows increase in right pneumothorax, but small - Patient had 2nd chest tube placed - CT surgery on board and recommendations appreciated. continue chest tubes to wall suction - Pulmonology on board as well and consultation appreciated - Patient admits to smoking marijuana and counseled about effects and PTX most likely secondary to rupture of subpleural bleb. - Pain management 2. Marijuana use - Counseled about cessation #irritation around nasal mucosa -2/2 NC plastic 3. Disposition - continue monitoring while chest tubes in place. repeat CXR in am Problems: Subjective 24 Hr Interval Summary Free Text/Dictation no acute overnight events Exam/Review of Systems Vital Signs Vitals Vital Signs Date Time Temp Pulse Resp B/P Pulse Ox O2 Delivery O2 Flow Rate FiO2 04/18/17 12:14 51 04/18/17 11:30 97.7 20 93/58 100 04/17/17 08:20 Nasal Cannula 2.0 04/14/17 21:35 21 Intake and Output 04/17/17 04/17/17 04/18/17 15:00 23:00 07:00 Intake Total 1200 ml 500 ml Output Total 0 ml 550 ml 600 ml Balance 0 ml 650 ml -100 ml Exam Physical exam General: Patient is laying in bed and answers questions appropriately Mentation: Patient is alert and oriented 4, Head: Normocephalic atraumatic Eyes: EOMI, pupils reactive to light Neck: Supple, nontender, midline Respiratory: diminished breath sounds on right Cardiovascular: regular rate, no obvious murmurs Gastrointestinal: non-tender to palpation, bowel sounds heard. Neurological: Moves all extremities spontaneously Skin: Chest tubes placed. Results Result Diagram: 04/17/1764104/17/17641 Medications Medications Current Medications Lorazepam (Ativan) 0.5 mg Q8H PRN PO ANXIETY; Start 04/11/17 at 04:00 Ondansetron HCl (Zofran Inj) 4 mg Q6H PRN IV NAUSEA AND/OR VOMITING; Start 04/11/17 at 04:00 Acetaminophen (Tylenol Tab) 650 mg Q6H PRN PO PAIN LEVEL 1-3 OR FEVER; Start 04/11/17 at 04:00 Famotidine (Pepcid) 20 mg Q12 PO Last administered on 04/18/17 09:34; Admin Dose 20 MG; Start 04/11/17 at 09:00 Acetaminophen/ Hydrocodone Bitart ([place] (5/325)) 1 tab Q4H PRN PO SOB Last administered on 04/18/17 14:18; Admin Dose 1 TAB; Start 04/11/17 at 16:00 Docusate Sodium (Colace) 100 mg BID PO Last administered on 04/18/17 09:34; Admin Dose 100 MG; Start 04/17/17 at 14:30 Polyethylene Glycol (Miralax) 17 gm DAILY PRN PO CONSTIPATION Last administered on 04/17/17 14:11; Admin Dose 17 GM; Start 04/17/17 at 14:30 GRACIA CORDON Apr 18, 2017 15:06
--- NOTE | 2017-04-18 18:36 | PN ---
Date/Time of Note Date/Time of Note DATE: 04/18/17 TIME: 18:35 Assessment/Plan Lines/Catheters IV Catheter Type (from Nrsg): Saline Lock Mckeon in Place (from Nrsg): No Assessment/Plan Chief Complaint/Hosp Course Pneumothorax increased in size Spontaneous episode of right pneumothorax responding to a chest tube placement will continue chest tube suction SP 2nd CT PTX Improving, only .[address] Sxn Repeat chest x-ray in a.m. Problems: Subjective 24 Hr Interval Summary Constitutional: improved Pain Control: mild Exam/Review of Systems Vital Signs Vitals Vital Signs Date Time Temp Pulse Resp B/P Pulse Ox O2 Delivery O2 Flow Rate FiO2 04/18/17 16:23 66 04/18/17 15:23 98.1 18 145/79 100 04/17/17 08:20 Nasal Cannula 2.0 04/14/17 21:35 21 Intake and Output 04/17/17 04/17/17 04/18/17 15:00 23:00 07:00 Intake Total 1200 ml 500 ml Output Total 0 ml 550 ml 600 ml Balance 0 ml 650 ml -100 ml Exam Neck: non-tender, supple Respiratory: clear to auscultation, normal air movement Cardiovascular: nl pulses, regular rate and rhythm Gastrointestinal: nl liver, spleen, non-tender, soft Results Result Diagram: 04/17/17 0642 04/17/17 0642 HARRY EDGE MD Apr 18, 2017 18:36
[2017-04-19] VITALS (13 sets, daily range): BP systolic 101–121; BP diastolic 53–80; PULSE 50–101; RESP 17–19
[2017-04-19] MEDS: HYDROCODONE/APAP (5/325) TAB PO PRN ×2 (03:04→20:19)
[2017-04-19 08:25] LABS: BASOPHIL # 0.1 10^3/ul (0.0-0.1); BASOPHILS % 0.7 % (0.0-2.0); EOSINOPHILS # 0.2 10^3/ul (0.0-0.5); EOSINOPHILS % 3.1 % (0.0-7.0); HEMATOCRIT 38.3 % (42.0-52.0); HEMOGLOBIN 13.5 g/dl (14.0-18.0); LYMPHOCYTES # 1.6 10^3/ul (0.8-2.9); MEAN CORPUSCULAR HEMOGLOBIN 31.5 pg (29.0-33.0); MEAN CORPUSCULAR HGB CONC 35.2 g/dl (32.0-37.0); MEAN CORPUSCULAR VOLUME 89.5 fl (82.0-101.0); MEAN PLATELET VOLUME 9.7 fl (7.4-10.4); MONOCYTE # 0.8 10^3/ul (0.3-0.9); MONOCYTES % 11.1 % (0.0-11.0); NEUTROPHIL # 4.5 10^3/ul (1.6-7.5); NEUTROPHILS % 62.8 % (39.0-77.0); PLATELET COUNT 233 10^3/UL (140-415); RED BLOOD COUNT 4.28 10^6/ul (4.70-6.10); RED CELL DISTRIBUTION WIDTH 11.9 % (11.5-14.5); WHITE BLOOD COUNT 7.1 10^3/ul (4.8-10.8)
[2017-04-19 08:54] LABS: CALCIUM 9.5 mg/dl (8.4-10.2); CREATININE 0.91 mg/dl (0.61-1.24); MAGNESIUM 1.9 mg/dl (1.7-2.5); PHOSPHORUS 4.3 mg/dl (2.5-4.9)
[2017-04-19] MEDS: DOCUSATE SODIUM 100 MG CAP PO SCH ×2 (09:13→20:16)
[2017-04-19] MEDS: FAMOTIDINE 20 MG TAB PO SCH ×2 (09:13→20:16)
[2017-04-19 11:13] LABS: HEMATOCRIT 39.5 % (42.0-52.0); HEMOGLOBIN 13.9 g/dl (14.0-18.0)
--- NOTE | 2017-04-19 11:13 | CONS ---
Date/Time of Note Date/Time of Note DATE: 04/19/17 TIME: 11:11 Consult Date/Type/Reason Admit Date/Time Apr 11, 2017 at 03:50 Initial Consult Date 04/11/17 Type of Consultation: Pulmonary Subjective No significant changes. Patient remains comfortable this morning. No airleak. Objective Vital Signs Date Time Temp Pulse Resp B/P Pulse Ox O2 Delivery O2 Flow Rate FiO2 04/19/17 08:08 50 04/19/17 07:16 98.2 18 102/61 97 04/17/17 08:20 Nasal Cannula 2.0 Intake and Output 04/18/17 04/18/17 04/19/17 14:59 22:59 06:59 Intake Total 1700 ml Output Total 700 ml 1500 ml Balance -700 ml 200 ml Exam GENERAL: Well-developed gentleman comfortable at rest no acute distress VITAL SIGNS: per chart NECK: Supple. No JVD or lymphadenopathy. CARDIAC EXAM: S1, S2. No added sounds or murmurs. CHEST: clear bilaterally, No added sounds, rales or wheezes, chest tubes in place ABDOMEN: Soft, nontender. No guarding or rebound. EXTREMITIES: No cyanosis, clubbing or edema. NEUROLOGIC: Generalized weakness. No focal deficits. Results/Medications Result Diagram: 04/19/1714 04/19/1714 Results 24 hrs Laboratory Tests Test 04/19/17 07:14 White Blood Count 7.1 Red Blood Count 4.28 L Hemoglobin 13.5 L Hematocrit 38.3 L Mean Corpuscular Volume 89.5 Mean Corpuscular Hemoglobin 31.5 Mean Corpuscular Hemoglobin Concent 35.2 Red Cell Distribution Width 11.9 Platelet Count 233 Mean Platelet Volume 9.7 Neutrophils % 62.8 Lymphocytes % 22.0 Monocytes % 11.1 H Eosinophils % 3.1 Basophils % 0.7 Nucleated Red Blood Cells % 0.0 Neutrophils # 4.5 Lymphocytes # 1.6 Monocytes # 0.8 Eosinophils # 0.2 Basophils # 0.1 Nucleated Red Blood Cells # 0.0 Sodium Level 141 Potassium Level 4.0 Chloride Level 101 Carbon Dioxide Level 33 H Anion Gap 11 Blood Urea Nitrogen 14 Creatinine 0.91 Glucose Level 89 Calcium Level 9.5 Phosphorus Level 4.3 Magnesium Level 1.9 Medications Current Medications Lorazepam (Ativan) 0.5 mg Q8H PRN PO ANXIETY; Start 04/11/17 at 04:00 Ondansetron HCl (Zofran Inj) 4 mg Q6H PRN IV NAUSEA AND/OR VOMITING; Start 04/11/17 at 04:00 Acetaminophen (Tylenol Tab) 650 mg Q6H PRN PO PAIN LEVEL 1-3 OR FEVER; Start 04/11/17 at 04:00 Famotidine (Pepcid) 20 mg Q12 PO Last administered on 04/19/17 09:13; Admin Dose 20 MG; Start 04/11/17 at 09:00 Acetaminophen/ Hydrocodone Bitart ([place] (5/325)) 1 tab Q4H PRN PO SOB Last administered on 04/19/17 03:04; Admin Dose 1 TAB; Start 04/11/17 at 16:00 Docusate Sodium (Colace) 100 mg BID PO Last administered on 04/19/17 09:13; Admin Dose 100 MG; Start 04/17/17 at 14:30 Polyethylene Glycol (Miralax) 17 gm DAILY PRN PO CONSTIPATION Last administered on 04/17/17 14:11; Admin Dose 17 GM; Start 04/17/17 at 14:30 Assessment/Plan Chief Complaint/Hosp Course Assessment 1. Spontaneous pneumothorax 2. Status post second chest tube placement still has pneumothorax right apical small nature. Plan 1. Continue chest tube to suction 2. Repeat chest x-ray, DC large bore chest tube consider leaving in small chest drain. 3. Decrease O2 as tolerated Discussed with thoracic surgery. Problems: A[facility], [facility] Apr 19, 2017 11:13
[2017-04-19] MEDS ORDERED: DIPHENHYDRAMINE 25 MG CAP PO ONE (12:00)
[2017-04-19] MEDS ORDERED: HYDROCORTISONE 1% 28 GM CR TOP PRN (13:30)
--- NOTE | 2017-04-19 14:11 | RADRPT ---
PROCEDURE: XR Chest. CLINICAL INDICATION: Shortness of breath. TECHNIQUE: Single frontal view. COMPARISON: 04/18/2017. FINDINGS: The lungs are clear. The heart size is normal. There is no pleural effusion. There are 2 right chest tubes as seen previously. There is a right apical pneumothorax measuring 0.8 cm, unchanged. IMPRESSION: 1. No change from the 04/18/2017 chest radiograph. RPTAT: QQ .Patrick Marie MD, MD Date Time Electronically viewed and signed by .Patrick Marie MD, MD on 04/19/2017 14:10 .R/
--- NOTE | 2017-04-19 15:45 | PN ---
Date/Time of Note Date/Time of Note DATE: 04/19/17 TIME: 15:44 Assessment/Plan VTE Prophylaxis VTE Prophylaxis Intervention: SCD's Lines/Catheters [facility] Saline Lock Urinary Cath still in place: No Assessment/Plan Chief Complaint/Hosp Course #. Right-sided spontaneous pneumothorax s/p 2 Chest tubes - Still has air leak in chest tube. Hooked to suction - repeat CXR shows increase in right pneumothorax, but small - Patient had 2nd chest tube placed - CT surgery on board and recommendations appreciated. continue chest tubes to wall suction - Pulmonology on board as well and consultation appreciated - Patient admits to smoking marijuana and counseled about effects and PTX most likely secondary to rupture of subpleural bleb. - Pain management #. Marijuana use - Counseled about cessation #irritation around nasal mucosa -2/2 NC plastic -prn hydrocortisone, patient notified of risk of steroid on face, apply only for short period of time 3. Disposition - continue monitoring while chest tubes in place. repeat CXR in am Problems: Subjective 24 Hr Interval Summary Free Text/Dictation small raised area on leg, now gone, nose is slightly itchy Exam/Review of Systems Vital Signs Vitals Vital Signs Date Time Temp Pulse Resp B/P Pulse Ox O2 Delivery O2 Flow Rate FiO2 04/19/17 14:59 98.3 72 18 101/57 100 04/17/17 08:20 Nasal Cannula 2.0 Intake and Output 04/18/17 04/18/17 04/19/17 15:00 23:00 07:00 Intake Total 1700 ml Output Total 700 ml 1500 ml Balance -700 ml 200 ml Exam Physical exam General: Patient is laying in bed and answers questions appropriately Mentation: Patient is alert and oriented 4, Head: Normocephalic atraumatic Eyes: EOMI, pupils reactive to light Neck: Supple, nontender, midline Respiratory: diminished breath sounds on right Cardiovascular: regular rate, no obvious murmurs Gastrointestinal: non-tender to palpation, bowel sounds heard. Neurological: Moves all extremities spontaneously Skin: Chest tubes placed. Results Result Diagram: 04/19/17 1021 04/19/17 0714 Results 24 hrs Laboratory Tests Test 04/19/17 07:14 04/19/17 10:21 White Blood Count 7.1 Red Blood Count 4.28 L Hemoglobin 13.5 L 13.9 L Hematocrit 38.3 L 39.5 L Mean Corpuscular Volume 89.5 Mean Corpuscular Hemoglobin 31.5 Mean Corpuscular Hemoglobin Concent 35.2 Red Cell Distribution Width 11.9 Platelet Count 233 Mean Platelet Volume 9.7 Neutrophils % 62.8 Lymphocytes % 22.0 Monocytes % 11.1 H Eosinophils % 3.1 Basophils % 0.7 Nucleated Red Blood Cells % 0.0 Neutrophils # 4.5 Lymphocytes # 1.6 Monocytes # 0.8 Eosinophils # 0.2 Basophils # 0.1 Nucleated Red Blood Cells # 0.0 Sodium Level 141 Potassium Level 4.0 Chloride Level 101 Carbon Dioxide Level 33 H Anion Gap 11 Blood Urea Nitrogen 14 Creatinine 0.91 Glucose Level 89 Calcium Level 9.5 Phosphorus Level 4.3 Magnesium Level 1.9 Ferritin 111.0 Medications Medications Current Medications Lorazepam (Ativan) 0.5 mg Q8H PRN PO ANXIETY; Start 04/11/17 at 04:00 Ondansetron HCl (Zofran Inj) 4 mg Q6H PRN IV NAUSEA AND/OR VOMITING; Start 04/11/17 at 04:00 Acetaminophen (Tylenol Tab) 650 mg Q6H PRN PO PAIN LEVEL 1-3 OR FEVER; Start 04/11/17 at 04:00 Famotidine (Pepcid) 20 mg Q12 PO Last administered on 04/19/17 09:13; Admin Dose 20 MG; Start 04/11/17 at 09:00 Acetaminophen/ Hydrocodone Bitart ([place] (5/325)) 1 tab Q4H PRN PO SOB Last administered on 04/19/17 03:04; Admin Dose 1 TAB; Start 04/11/17 at 16:00 Docusate Sodium (Colace) 100 mg BID PO Last administered on 04/19/17 09:13; Admin Dose 100 MG; Start 04/17/17 at 14:30 Polyethylene Glycol (Miralax) 17 gm DAILY PRN PO CONSTIPATION Last administered on 04/17/17 14:11; Admin Dose 17 GM; Start 04/17/17 at 14:30 Hydrocortisone (Hydrocortisone 1% Cr) 1 applic BID PRN TOP itching; Start 04/19 at 13:30 GRACIA CORDON Apr 19, 2017 15:45
--- NOTE | 2017-04-19 19:11 | PN ---
Date/Time of Note Date/Time of Note DATE: 04/19/17 TIME: 19:10 Assessment/Plan Lines/Catheters IV Catheter Type (from Nrsg): Saline Lock Mckeon in Place (from Nrsg): No Assessment/Plan Chief Complaint/Hosp Course Pneumothorax increased in size Spontaneous episode of right pneumothorax responding to a chest tube placement will continue chest tube suction SP 2nd CT PTX Improving, only .[address] Problems: Subjective 24 Hr Interval Summary Constitutional: improved Pain Control: mild Exam/Review of Systems Vital Signs Vitals Vital Signs Date Time Temp Pulse Resp B/P Pulse Ox O2 Delivery O2 Flow Rate FiO2 04/19/17 16:29 65 04/19/17 14:59 98.3 18 101/57 100 04/17/17 08:20 Nasal Cannula 2.0 Intake and Output 04/18/17 04/18/17 04/19/17 15:00 23:00 07:00 Intake Total 1700 ml Output Total 700 ml 1500 ml Balance -700 ml 200 ml Exam ENMT: mucosa pink and moist, nl external ears & nose, nl lips & teeth, nl nasal mucosa & septum Neck: non-tender, supple Respiratory: clear to auscultation, normal air movement Cardiovascular: nl pulses, regular rate and rhythm Results Result Diagram: 04/19/17 1021 04/19/17 0714 HARRY EDGE MD Apr 19, 2017 19:11
[2017-04-20] VITALS (11 sets, daily range): BP systolic 112–129; BP diastolic 60–81; PULSE 55–82; RESP 16–19
[2017-04-20] MEDS: HYDROCODONE/APAP (5/325) TAB PO PRN ×3 (05:11→18:15)
--- NOTE | 2017-04-20 07:27 | RADRPT ---
PROCEDURE: XR Chest. CLINICAL INDICATION: Right-sided pneumothorax. TECHNIQUE: Single portable view of the chest was obtained COMPARISON: DR TRAORE 04/19/2017 FINDINGS: Again demonstrated are 2 right-sided chest tubes which are unchanged position. A small right apical pneumothorax measures approximately 1.0 cm previously measuring 0.8 cm. The cardiomediastinal silhou ette is normal. Left lung is clear. The osseous structures are unremarkable. IMPRESSION: 1. Minimally increased right apical pneumothorax. 2. 2 right-sided chest tubes are present and unchanged in position. RPTAT: HRSR Physician Walt Date Time Electronically viewed and signed by Physician Walt on 04/20/2017 07:27 RR/
[2017-04-20] MEDS: FAMOTIDINE 20 MG TAB PO SCH ×2 (08:55→20:45)
[2017-04-20] MEDS: DOCUSATE SODIUM 100 MG CAP PO SCH ×2 (08:55→20:45)
--- NOTE | 2017-04-20 13:07 | CONS ---
Date/Time of Note Date/Time of Note DATE: 04/20/17 TIME: 13:05 Consult Date/Type/Reason Admit Date/Time Apr 11, 2017 at 03:50 Initial Consult Date 04/11/17 Type of Consultation: Pulmonary Subjective Chest x-ray this morning shows persistent pneumothorax. Patient remains stable. Objective Vital Signs Date Time Temp Pulse Resp B/P Pulse Ox O2 Delivery O2 Flow Rate FiO2 04/20/17 12:00 55 04/20/17 11:15 98.0 16 120/81 97 04/17/17 08:20 Nasal Cannula 2.0 Intake and Output 04/19/17 04/19/17 04/20/17 14:59 22:59 06:59 Intake Total 750 ml Output Total 1275 ml 800 ml Balance -525 ml -800 ml Exam GENERAL: Well-developed gentleman comfortable at rest no acute distress VITAL SIGNS: per chart NECK: Supple. No JVD or lymphadenopathy. CARDIAC EXAM: S1, S2. No added sounds or murmurs. CHEST: clear bilaterally, No added sounds, rales or wheezes, chest tubes in place ABDOMEN: Soft, nontender. No guarding or rebound. EXTREMITIES: No cyanosis, clubbing or edema. NEUROLOGIC: Generalized weakness. No focal deficits. Results/Medications Result Diagram: 04/19/17 1021 04/19/17 0714 Medications Current Medications Lorazepam (Ativan) 0.5 mg Q8H PRN PO ANXIETY; Start 04/11/17 at 04:00 Ondansetron HCl (Zofran Inj) 4 mg Q6H PRN IV NAUSEA AND/OR VOMITING; Start 04/11/17 at 04:00 Acetaminophen (Tylenol Tab) 650 mg Q6H PRN PO PAIN LEVEL 1-3 OR FEVER; Start 04/11/17 at 04:00 Famotidine (Pepcid) 20 mg Q12 PO Last administered on 04/20/17 08:55; Admin Dose 20 MG; Start 04/11/17 at 09:00 Acetaminophen/ Hydrocodone Bitart ([place] (5/325)) 1 tab Q4H PRN PO SOB Last administered on 04/20/17 05:11; Admin Dose 1 TAB; Start 04/11/17 at 16:00 Docusate Sodium (Colace) 100 mg BID PO Last administered on 04/20/17 08:55; Admin Dose 100 MG; Start 04/17/17 at 14:30 Polyethylene Glycol (Miralax) 17 gm DAILY PRN PO CONSTIPATION Last administered on 04/17/17t 14:11; Admin Dose 17 GM; Start 04/17/17 at 14:30 Hydrocortisone (Hydrocortisone 1% Cr) 1 applic BID PRN TOP itching; Start 04/19 at 13:30 Assessment/Plan Chief Complaint/Hosp Course Assessment 1. Spontaneous pneumothorax 2. Status post second chest tube placement still persistent small apical right pneumothorax on chest x-ray. Plan 1. Continue chest tube to suction 2. CT chest noncontrast. Evaluate for possible pleural blebs. Chest tubes may need replacement and more apical areas. 3. Decrease O2 as tolerated We will discuss with thoracic surgery. Problems: ANABEL [facility]ECKER MD, [facility] Apr 20, 2017 13:07
--- NOTE | 2017-04-20 13:31 | PN ---
Date/Time of Note Date/Time of Note DATE: 04/20/17 TIME: 13:31 Assessment/Plan VTE Prophylaxis VTE Prophylaxis Intervention: SCD's Lines/Catheters IV Catheter Type (from Nrs): Saline Lock Urinary Cath still in place: No Assessment/Plan Chief Complaint/Hosp Course #. Right-sided spontaneous pneumothorax s/p 2 Chest tubes - Still has air leak in chest tube. Hooked to suction - repeat CXR shows increase in right pneumothorax, but small - Patient had 2nd chest tube placed - CT surgery on board and recommendations appreciated. continue chest tubes to wall suction - Pulmonology on board as well and consultation appreciated - Patient admits to smoking marijuana and counseled about effects and PTX most likely secondary to rupture of subpleural bleb. - Pain management #. Marijuana use - Counseled about cessation #irritation around nasal mucosa -2/2 NC plastic -prn hydrocortisone, patient notified of risk of steroid on face, apply only for short period of time #. Disposition - continue monitoring while chest tubes in place. repeat CXR in am Problems: Subjective 24 Hr Interval Summary Free Text/Dictation no acute overnight events. no new rashes Exam/Review of Systems Vital Signs Vitals Vital Signs Date Time Temp Pulse Resp B/P Pulse Ox O2 Delivery O2 Flow Rate FiO2 04/20/17 12:00 55 04/20/17 11:15 98.0 16 120/81 97 04/17/17 08:20 Nasal Cannula 2.0 Intake and Output 04/19/17 04/19/17 04/20/17 15:00 23:00 07:00 Intake Total 750 ml Output Total 1275 ml 800 ml Balance -525 ml -800 ml Exam Physical exam General: Patient is laying in bed and answers questions appropriately Mentation: Patient is alert and oriented 4, Head: Normocephalic atraumatic Eyes: EOMI, pupils reactive to light Neck: Supple, nontender, midline Respiratory: diminished breath sounds on right Cardiovascular: regular rate, no obvious murmurs Gastrointestinal: non-tender to palpation, bowel sounds heard. Neurological: Moves all extremities spontaneously Skin: Chest tubes placed. Results Result Diagram: 04/19/17 1021 04/19/17 0714 Medications Medications Current Medications Lorazepam (Ativan) 0.5 mg Q8H PRN PO ANXIETY; Start 04/11/17 at 04:00 Ondansetron HCl (Zofran Inj) 4 mg Q6H PRN IV NAUSEA AND/OR VOMITING; Start 04/11/17 at 04:00 Acetaminophen (Tylenol Tab) 650 mg Q6H PRN PO PAIN LEVEL 1-3 OR FEVER; Start 04/11/17 at 04:00 Famotidine (Pepcid) 20 mg Q12 PO Last administered on 04/20/17 08:55; Admin Dose 20 MG; Start 04/11/17 at 09:00 Acetaminophen/ Hydrocodone Bitart ([place] (5/325)) 1 tab Q4H PRN PO SOB Last administered on 04/20/17 05:11; Admin Dose 1 TAB; Start 04/11/17 at 16:00 Docusate Sodium (Colace) 100 mg BID PO Last administered on 04/20/17 08:55; Admin Dose 100 MG; Start 04/17/17 at 14:30 Polyethylene Glycol (Miralax) 17 gm DAILY PRN PO CONSTIPATION Last administered on 04/17/17 14:11; Admin Dose 17 GM; Start 04/17/17 at 14:30 Hydrocortisone (Hydrocortisone 1% Cr) 1 applic BID PRN TOP itching; Start 04/19 at 13:30 GRACIA CORDON Apr 20, 2017 13:31
--- NOTE | 2017-04-20 14:52 | RADRPT ---
PROCEDURE: CT Chest without contrast. CLINICAL INDICATION: Shortness of breath TECHNIQUE: CT scan of the chest without contrast was performed on a multidetector high-resolution CT scanner. Coronal and sagittal reformatted images were obtained from the axial source images. The total exam CTDI equals 5 mGy and the total exam DLP equals 236 mGy-cm. One or more of the followin g dose reduction techniques were used: Automated exposure control, Adjustment of the mA and/or kV ac cording to patient size, and/or use of iterative reconstruction technique. COMPARISON: Correlation chest x-ray earlier today FINDINGS: Small 10% right apical pneumothorax. Two right chest tubes are identified with tips along the balloon artist ior margin of the right lower lobe. The lungs are otherwise clear. No mediastinal or hilar lymphadenopathy. No significant pleural or pericardial effusion. Normal cardiac size. The visualized upper abdomen is grossly unremarkable. IMPRESSION: Small right apical pneumothorax. Two right chest tubes are identified with tips along the posterior margin of the right lower lobe. The lungs are otherwise clear. RPTAT: AA .Genaro Marshall MD, MD Date Time Electronically viewed and signed by .Genaro Marshall MD, on 04/20/2017 14:52 .T/
--- NOTE | 2017-04-20 16:28 | PN ---
Date/Time of Note Date/Time of Note DATE: 04/20/17 TIME: 16:28 Assessment/Plan Lines/Catheters IV Catheter Type (from Nrsg): Saline Lock Mckeon in Place (from Nrsg): No Assessment/Plan Chief Complaint/Hosp Course Pneumothorax increased in size Spontaneous episode of right pneumothorax responding to a chest tube placement will continue chest tube suction SP 2nd CT PTX Improving, only .[address] check CXR Problems: Subjective 24 Hr Interval Summary Constitutional: improved Pain Control: mild Exam/Review of Systems Vital Signs Vitals Vital Signs Date Time Temp Pulse Resp B/P Pulse Ox O2 Delivery O2 Flow Rate FiO2 04/20/17 15:23 98.1 16 16 125/70 100 04/17/17 08:20 Nasal Cannula 2.0 Intake and Output 04/19/17 04/19/17 04/20/17 15:00 23:00 07:00 Intake Total 750 ml Output Total 1275 ml 800 ml Balance -525 ml -800 ml Exam ENMT: mucosa pink and moist, nl external ears & nose, nl lips & teeth, nl nasal mucosa & septum Neck: non-tender, supple Respiratory: clear to auscultation, normal air movement Cardiovascular: nl pulses, regular rate and rhythm Results Result Diagram: 04/19/17 1021 04/19/17 0714 HARRY EDGE MD Apr 20, 2017 16:28
[2017-04-21] VITALS (13 sets, daily range): BP systolic 92–141; BP diastolic 54–79; PULSE 59–90; RESP 18–20
[2017-04-21 07:12] LABS: BASOPHILS % 0.4 % (0.0-2.0); EOSINOPHILS # 0.3 10^3/ul (0.0-0.5); LYMPHOCYTES % 25.5 % (15.0-51.0); MEAN CORPUSCULAR HEMOGLOBIN 31.5 pg (29.0-33.0); MEAN CORPUSCULAR VOLUME 90.1 fl (82.0-101.0); MEAN PLATELET VOLUME 9.2 fl (7.4-10.4); MONOCYTE # 0.8 10^3/ul (0.3-0.9); MONOCYTES % 9.9 % (0.0-11.0); NEUTROPHIL # 4.6 10^3/ul (1.6-7.5); NEUTROPHILS % 59.9 % (39.0-77.0); PLATELET COUNT 259 10^3/UL (140-415); RED BLOOD COUNT 4.44 10^6/ul (4.70-6.10); RED CELL DISTRIBUTION WIDTH 11.8 % (11.5-14.5); WHITE BLOOD COUNT 7.7 10^3/ul (4.8-10.8)
[2017-04-21 07:31] LABS: CALCIUM 9.7 mg/dl (8.4-10.2); CREATININE 1.02 mg/dl (0.61-1.24); MAGNESIUM 1.8 mg/dl (1.7-2.5); POTASSIUM 3.8 mmol/L (3.5-5.1)
[2017-04-21 07:56] LABS: PHOSPHORUS 4.7 mg/dl (2.5-4.9)
[2017-04-21] MEDS: FAMOTIDINE 20 MG TAB PO SCH ×2 (08:54→20:24)
[2017-04-21] MEDS: HYDROCODONE/APAP (5/325) TAB PO PRN (08:55)
[2017-04-21] MEDS: DOCUSATE SODIUM 100 MG CAP PO SCH ×2 (08:55→20:23)
--- NOTE | 2017-04-21 10:45 | PN ---
Date/Time of Note Date/Time of Note DATE: 04/21/17 TIME: 10:45 Assessment/Plan VTE Prophylaxis VTE Prophylaxis Intervention: SCD's Lines/Catheters IV [facility] Type [facility] Saline Lock Urinary Cath still in place: No Assessment/Plan Assessment/Plan 1. Right-sided spontaneous pneumothorax s/p 2 Chest tubes - Patient currently has chest tubes in place to water seal - repeat CXR taken and awaiting results - CT surgery on board and recommendations appreciated. continue chest tubes - Pulmonology on board as well and consultation appreciated - Patient admits to smoking marijuana and counseled about effects and PTX most likely secondary to rupture of subpleural bleb. - Pain management 2. Marijuana use - Counseled about cessation 3. irritation around nasal mucosa- resolved -2/2 NC plastic 4. Disposition - continue monitoring while chest tubes in place. repeat CXR in am Subjective 24 Hr Interval Summary Free Text/Dictation Patient resting comfortably. No acute overnight events and no new complaints. Exam/Review of Systems Vital Signs Vitals Vital Signs Date Time Temp Pulse Resp B/P Pulse Ox O2 Delivery O2 Flow Rate FiO2 04/21/17 08:19 62 04/21/17 07:43 97.9 18 100/64 100 04/17/17 08:20 Nasal Cannula 2.0 Intake and Output 04/20/17 04/20/17 04/21/17 15:00 23:00 07:00 Intake Total 700 ml 1020 ml 900 ml Output Total 600 ml 857 ml 950 ml Balance 100 ml 163 ml -50 ml Exam General: Patient is laying in bed and answers questions appropriately Mentation: Patient is alert and oriented 4, Head: Normocephalic atraumatic Eyes: EOMI, pupils reactive to light Neck: Supple, nontender, midline Respiratory: diminished breath sounds on right Cardiovascular: regular rate, no obvious murmurs Gastrointestinal: non-tender to palpation, bowel sounds heard. Neurological: Moves all extremities spontaneously Skin: Chest tubes placed, currently on water seal. Results Result Diagram: 04/21/17 0620 04/21/17 0620 Results 24 hrs Laboratory Tests Test 04/21/17 06:20 White Blood Count 7.7 Red Blood Count 4.44 L Hemoglobin 14.0 Hematocrit 40.0 L Mean Corpuscular Volume 90.1 Mean Corpuscular Hemoglobin 31.5 Mean Corpuscular Hemoglobin Concent 35.0 Red Cell Distribution Width 11.8 Platelet Count 259 Mean Platelet Volume 9.2 Neutrophils % 59.9 Lymphocytes % 25.5 Monocytes % 9.9 Eosinophils % 4.0 Basophils % 0.4 Nucleated Red Blood Cells % 0.0 Neutrophils # 4.6 Lymphocytes # 2.0 Monocytes # 0.8 Eosinophils # 0.3 Basophils # 0.0 Nucleated Red Blood Cells # 0.0 Sodium Level 142 Potassium Level 3.8 Chloride Level 102 Carbon Dioxide Level 31 Anion Gap 13 Blood Urea Nitrogen 14 Creatinine 1.02 Glucose Level 89 Calcium Level 9.7 Phosphorus Level 4.7 Magnesium Level 1.8 Medications Medications Current Medications Lorazepam (Ativan) 0.5 mg Q8H PRN PO ANXIETY; Start 04/11/17 at 04:00 Ondansetron HCl (Zofran Inj) 4 mg Q6H PRN IV NAUSEA AND/OR VOMITING; Start 04/11/17 at 04:00 Acetaminophen (Tylenol Tab) 650 mg Q6H PRN PO PAIN LEVEL 1-3 OR FEVER; Start 04/11/17 at 04:00 Famotidine (Pepcid) 20 mg Q12 PO Last administered on 04/21/17 08:54; Admin Dose 20 MG; Start 04/11/17 at 09:00 Acetaminophen/ Hydrocodone Bitart ([place] (5/325)) 1 tab Q4H PRN PO SOB Last administered on 04/21/17 08:55; Admin Dose 1 TAB; Start 04/11/17 at 16:00 Docusate Sodium (Colace) 100 mg BID PO Last administered on 04/21/17 08:55; Admin Dose 100 MG; Start 04/17/17 at 14:30 Polyethylene Glycol (Miralax) 17 gm DAILY PRN PO CONSTIPATION Last administered on 04/17/17 14:11; Admin Dose 17 GM; Start 04/17/17 at 14:30 Hydrocortisone (Hydrocortisone 1% Cr) 1 applic BID PRN TOP itching; Start 04/19 at 13:30 ELIZABETH TRIVEDI MD Apr 21, 2017 10:45
--- NOTE | 2017-04-21 12:21 | CONS ---
Date/Time of Note Date/Time of Note DATE: 04/21/17 TIME: 12:20 Consult Date/Type/Reason Admit Date/Time Apr 11, 2017 at 03:50 Initial Consult Date 04/11/17 Type of Consultation: Pulmonary Subjective Patient remains comfortable on room air. CT findings noted and discussed with patient. Objective Vital Signs Date Time Temp Pulse Resp B/P Pulse Ox O2 Delivery O2 Flow Rate FiO2 04/21/17 12:12 59 04/21/17 11:25 97.5 20 92/54 99 04/17/17 08:20 Nasal Cannula 2.0 Intake and Output 04/20/17 04/20/17 04/21/17 15:00 23:00 07:00 Intake Total 700 ml 1020 ml 900 ml Output Total 600 ml 857 ml 950 ml Balance 100 ml 163 ml -50 ml Exam GENERAL: Well-developed gentleman comfortable at rest no acute distress VITAL SIGNS: per chart NECK: Supple. No JVD or lymphadenopathy. CARDIAC EXAM: S1, S2. No added sounds or murmurs. CHEST: clear bilaterally, No added sounds, rales or wheezes, chest tubes in place ABDOMEN: Soft, nontender. No guarding or rebound. EXTREMITIES: No cyanosis, clubbing or edema. NEUROLOGIC: Generalized weakness. No focal deficits. Results/Medications Result Diagram: 04/21/17 0620 04/21/17 0620 Results 24 hrs Laboratory Tests Test 04/21/17 06:20 White Blood Count 7.7 Red Blood Count 4.44 L Hemoglobin 14.0 Hematocrit 40.0 L Mean Corpuscular Volume 90.1 Mean Corpuscular Hemoglobin 31.5 Mean Corpuscular Hemoglobin Concent 35.0 Red Cell Distribution Width 11.8 Platelet Count 259 Mean Platelet Volume 9.2 Neutrophils % 59.9 Lymphocytes % 25.5 Monocytes % 9.9 Eosinophils % 4.0 Basophils % 0.4 Nucleated Red Blood Cells % 0.0 Neutrophils # 4.6 Lymphocytes # 2.0 Monocytes # 0.8 Eosinophils # 0.3 Basophils # 0.0 Nucleated Red Blood Cells # 0.0 Sodium Level 142 Potassium Level 3.8 Chloride Level 102 Carbon Dioxide Level 31 Anion Gap 13 Blood Urea Nitrogen 14 Creatinine 1.02 Glucose Level 89 Calcium Level 9.7 Phosphorus Level 4.7 Magnesium Level 1.8 Medications Current Medications Lorazepam (Ativan) 0.5 mg Q8H PRN PO ANXIETY; Start 04/11/17 at 04:00 Ondansetron HCl (Zofran Inj) 4 mg Q6H PRN IV NAUSEA AND/OR VOMITING; Start 04/11/17 at 04:00 Acetaminophen (Tylenol Tab) 650 mg Q6H PRN PO PAIN LEVEL 1-3 OR FEVER; Start 04/11/17 at 04:00 Famotidine (Pepcid) 20 mg Q12 PO Last administered on 04/21/17 08:54; Admin Dose 20 MG; Start 04/11/17 at 09:00 Acetaminophen/ Hydrocodone Bitart ([place] (5/325)) 1 tab Q4H PRN PO SOB Last administered on 04/21/17 08:55; Admin Dose 1 TAB; Start 04/11/17 at 16:00 Docusate Sodium (Colace) 100 mg BID PO Last administered on 04/21/17 08:55; Admin Dose 100 MG; Start 04/17/17 at 14:30 Polyethylene Glycol (Miralax) 17 gm DAILY PRN PO CONSTIPATION Last administered on 04/17/17 14:11; Admin Dose 17 GM; Start 04/17/17 at 14:30 Hydrocortisone (Hydrocortisone 1% Cr) 1 applic BID PRN TOP itching; Start 04/19 at 13:30 Assessment/Plan Chief Complaint/Hosp Course Assessment 1. Spontaneous pneumothorax 2. Status post second chest tube placement still persistent small apical right pneumothorax on chest x-ray. Chest CT findings noted. Concern for apical bullae. Case was discussed with thoracic surgery. 3. Repeat chest x-ray this a.m. Chest tubes currently on waterseal. Plan 1. Continue chest tube to suction 2. CT chest noncontrast. Evaluate for possible pleural blebs. Chest tubes may need replacement and more apical areas. 3. Decrease O2 as tolerated Hopefully DC chest tube soon. Problems: ANABEL BECKER MD, [facility] Apr 21, 2017 12:21
--- NOTE | 2017-04-21 16:38 | RADRPT ---
PROCEDURE: XR Chest. CLINICAL INDICATION: Pneumonia versus CHF. TECHNIQUE: Single frontal view of the chest was obtained. COMPARISON: Chest x-ray 04/20/2017 06:10 a.m. FINDINGS: Monitoring electrodes project across the chest. A small-bore thoracostomy tube is coiled along the r ight lateral pleural space. A 5% right apical pneumothorax is identified. There is a right-sided tho racostomy tube projecting parallel to the posterior right 8th rib. The right diaphragm is slightly f lattened. The lungs are clear. The heart, pulmonary vasculature and lung velasquez are normal. The bony elements are unremarkable. IMPRESSION: 1. 5% right apical pneumothorax which decreased in size when compared to 04/20/2017. 2. 2 right-sided thoracostomy tubes remain in place. 3. There is no evidence of active cardiopulmonary disease. RPTAT:AAJJ Physician Deanna Date Time Electronically viewed and signed by Aris Garcia Physician on 04/21/2017 16:38 RONY/
--- NOTE | 2017-04-21 20:14 | PN ---
Date/Time of Note Date/Time of Note DATE: 04/21/17 TIME: 20:13 Assessment/Plan Lines/Catheters IV Catheter Type (from Nrsg): Saline Lock Mckeon in Place (from Nrsg): No Assessment/Plan Chief Complaint/Hosp Course Pneumothorax increased in size Spontaneous episode of right pneumothorax responding to a chest tube placement will continue chest tube suction SP 2nd CT PTX Improving, only .[address] DC CT tomorrow if no change in CXR Problems: Subjective 24 Hr Interval Summary Constitutional: improved Pain Control: mild Exam/Review of Systems Vital Signs Vitals Vital Signs Date Time Temp Pulse Resp B/P Pulse Ox O2 Delivery O2 Flow Rate FiO2 04/21/17 16:13 90 04/21/17 15:19 98.4 20 108/60 100 04/17/17 08:20 Nasal Cannula 2.0 Intake and Output 04/20/17 04/20/17 04/21/17 15:00 23:00 07:00 Intake Total 700 ml 1020 ml 900 ml Output Total 600 ml 857 ml 950 ml Balance 100 ml 163 ml -50 ml Exam ENMT: mucosa pink and moist, nl external ears & nose, nl lips & teeth, nl nasal mucosa & septum Neck: non-tender, supple Respiratory: clear to auscultation, normal air movement Cardiovascular: nl pulses, regular rate and rhythm Results Result Diagram: 04/21/1761904/21/17619 HARRY EDGE MD Apr 21, 2017 20:14
[2017-04-22] VITALS (11 sets, daily range): BP systolic 93–126; BP diastolic 57–89; PULSE 55–100; RESP 16–20
[2017-04-22] MEDS: HYDROCODONE/APAP (5/325) TAB PO PRN ×2 (00:15→21:18)
[2017-04-22] MEDS: FAMOTIDINE 20 MG TAB PO SCH ×2 (09:00→21:18)
[2017-04-22] MEDS: DOCUSATE SODIUM 100 MG CAP PO SCH ×2 (09:00→21:18)
--- NOTE | 2017-04-22 09:01 | RADRPT ---
PROCEDURE: XR Chest. CLINICAL INDICATION: Pneumonia, congestive heart failure. TECHNIQUE: Single frontal view of the chest was obtained COMPARISON: Chest radiograph dated April 21, 2017. FINDINGS: 2 right-sided chest tubes in stable position. The heart and mediastinum are within normal limits. There is a stable small right apical pneumothorax. No focal consolidations or pleural effusions. The osseous structures are grossly unremarkable. IMPRESSION: 1. Stable small right apical pneumothorax with [address]. RPTAT:AAJJ Physician Emi Date Time Electronically viewed and signed by Brooke Oropeza Physician on 04/22/2017 09:01 QL/
--- NOTE | 2017-04-22 11:13 | CONS ---
Date/Time of Note Date/Time of Note DATE: 04/22/17 TIME: : Consult Date/Type/Reason Admit Date/Time Apr 11, 2017 at 03:50 Initial Consult Date 04/11/17 Type of Consultation: Pulmonary Subjective Patient comfortable this morning. Sleeping. Chest tubes clamped. Objective Vital Signs Date Time Temp Pulse Resp B/P Pulse Ox O2 Delivery O2 Flow Rate FiO2 04/22/17 08:07 55 04/22/17 07:34 98.0 20 93/66 99 Intake and Output 04/21/17 04/21/17 04/22/17 14:59 22:59 06:59 Intake Total 960 ml 500 ml Output Total 0 ml 1000 ml 800 ml Balance 0 ml -40 ml -300 ml Exam GENERAL: Well-developed gentleman comfortable at rest no acute distress VITAL SIGNS: per chart NECK: Supple. No JVD or lymphadenopathy. CARDIAC EXAM: S1, S2. No added sounds or murmurs. CHEST: clear bilaterally, No added sounds, rales or wheezes, chest tubes in place ABDOMEN: Soft, nontender. No guarding or rebound. EXTREMITIES: No cyanosis, clubbing or edema. NEUROLOGIC: Generalized weakness. No focal deficits. Results/Medications Result Diagram: 04/21/1761904/21/17619 Results 24 hrs Chest x-ray no change in small right apical pneumothorax. Medications Current Medications Lorazepam (Ativan) 0.5 mg Q8H PRN PO ANXIETY; Start 04/11/17 at 04:00 Ondansetron HCl (Zofran Inj) 4 mg Q6H PRN IV NAUSEA AND/OR VOMITING; Start 04/11/17 at 04:00 Acetaminophen (Tylenol Tab) 650 mg Q6H PRN PO PAIN LEVEL 1-3 OR FEVER; Start 04/11/17 at 04:00 Famotidine (Pepcid) 20 mg Q12 PO Last administered on 04/21/17 20:24; Admin Dose 20 MG; Start 04/11/17 at 09:00 Acetaminophen/ Hydrocodone Bitart ([place] (5/325)) 1 tab Q4H PRN PO SOB Last administered on 04/22/17 00:15; Admin Dose 1 TAB; Start 04/11/17 at 16:00 Docusate Sodium (Colace) 100 mg BID PO Last administered on 04/21/17 20:23; Admin Dose 100 MG; Start 04/17/17 at 14:30 Polyethylene Glycol (Miralax) 17 gm DAILY PRN PO CONSTIPATION Last administered on 04/17/17 14:11; Admin Dose 17 GM; Start 04/17/17 at 14:30 Hydrocortisone (Hydrocortisone 1% Cr) 1 applic BID PRN TOP itching; Start 04/19 at 13:30 Assessment/Plan Chief Complaint/Hosp Course Assessment 1. Spontaneous pneumothorax 2. Status post second chest tube placement still persistent small apical right pneumothorax on chest x-ray. Chest CT findings noted. Concern for apical bullae. Case was discussed with thoracic surgery. 3. Repeat chest x-ray this a.m shows tiny right apical pneumothorax. Chest tubes are clamped. Plan 1. DC chest tubes if okay with thoracic surgery 2. Encourage out of bed. 3. Decrease O2 as tolerated DC home soon Problems: [facility], [facility] Apr 22, 2017 11:13
--- NOTE | 2017-04-22 11:29 | PN ---
Date/Time of Note Date/Time of Note DATE: 04/22/17 TIME: 11:29 Assessment/Plan VTE Prophylaxis VTE Prophylaxis Intervention: SCD's Lines/Catheters IV Catheter Type (from Nrs): Saline Lock Urinary Cath still in place: No Assessment/Plan Assessment/Plan 1. Right-sided spontaneous pneumothorax s/p 2 Chest tubes - Patient currently has chest tubes in place to water seal - repeat CXR taken and shows stable small right apical pneumothorax with [address] - CT surgery on board and recommendations appreciated. - Pulmonology on board as well and consultation appreciated - Patient admits to smoking marijuana and counseled about effects and PTX most likely secondary to rupture of subpleural bleb. - Pain management 2. Marijuana use - Counseled about cessation 3. irritation around nasal mucosa- resolved -2/2 NC plastic 4. Disposition - awaiting CT surgery recommendations regarding chest tubes. Subjective 24 Hr Interval Summary Free Text/Dictation Patient resting comfortably. Denies any new complaints and no acute overnight events. Exam/Review of Systems Vital Signs Vitals Vital Signs Date Time Temp Pulse Resp B/P Pulse Ox O2 Delivery O2 Flow Rate FiO2 04/22/17 08:07 55 04/22/17 07:34 98.0 20 93/66 99 Intake and Output 04/21/17 04/21/17 04/22/17 14:59 22:59 06:59 Intake Total 960 ml 500 ml Output Total 0 ml 1000 ml 800 ml Balance 0 ml -40 ml -300 ml Exam General: Patient is laying in bed and answers questions appropriately Mentation: Patient is alert and oriented 4, Head: Normocephalic atraumatic Eyes: EOMI, pupils reactive to light Neck: Supple, nontender, midline Respiratory: diminished breath sounds on right Cardiovascular: regular rate, no obvious murmurs Gastrointestinal: non-tender to palpation, bowel sounds heard. Neurological: Moves all extremities spontaneously Skin: Chest tubes in place Results Result Diagram: 04/21/1761904/21/17619 Medications Medications Current Medications Lorazepam (Ativan) 0.5 mg Q8H PRN PO ANXIETY; Start 04/11/17 at 04:00 Ondansetron HCl (Zofran Inj) 4 mg Q6H PRN IV NAUSEA AND/OR VOMITING; Start 04/11/17 at 04:00 Acetaminophen (Tylenol Tab) 650 mg Q6H PRN PO PAIN LEVEL 1-3 OR FEVER; Start 04/11/17 at 04:00 Famotidine (Pepcid) 20 mg Q12 PO Last administered on 04/21/17 20:24; Admin Dose 20 MG; Start 04/11/17 at 09:00 Acetaminophen/ Hydrocodone Bitart ([place] (5/325)) 1 tab Q4H PRN PO SOB Last administered on 04/22/17 00:15; Admin Dose 1 TAB; Start 04/11/17 at 16:00 Docusate Sodium (Colace) 100 mg BID PO Last administered on 04/21/17 20:23; Admin Dose 100 MG; Start 04/17/17 at 14:30 Polyethylene Glycol (Miralax) 17 gm DAILY PRN PO CONSTIPATION Last administered on 04/17/17 14:11; Admin Dose 17 GM; Start 04/17/17 at 14:30 Hydrocortisone (Hydrocortisone 1% Cr) 1 applic BID PRN TOP itching; Start 04/19 at 13:30 ELIZABETH TRIVEDI MD Apr 22, 2017 11:29
--- NOTE | 2017-04-22 18:42 | PN ---
Date/Time of Note Date/Time of Note DATE: 04/22/17 TIME: 18:41 Assessment/Plan Lines/Catheters IV Catheter Type (from Nrsg): Saline Lock Mckeon in Place (from Nrsg): No Assessment/Plan Chief Complaint/Hosp Course Pneumothorax increased in size Spontaneous episode of right pneumothorax responding to a chest tube placement will continue chest tube suction SP 2nd CT CT clamped no significant increase in PTX DC CT tomorrow Problems: Subjective 24 Hr Interval Summary Constitutional: improved Pain Control: mild Exam/Review of Systems Vital Signs Vitals Vital Signs Date Time Temp Pulse Resp B/P Pulse Ox O2 Delivery O2 Flow Rate FiO2 04/22/17 16:14 100 04/22/17 15:38 98.3 20 126/67 98 Intake and Output 04/21/17 04/21/17 04/22/17 15:00 23:00 07:00 Intake Total 960 ml 500 ml Output Total 0 ml 1000 ml 800 ml Balance 0 ml -40 ml -300 ml Exam ENMT: mucosa pink and moist, nl external ears & nose, nl lips & teeth, nl nasal mucosa & septum Neck: non-tender, supple Respiratory: clear to auscultation, normal air movement Cardiovascular: nl pulses, regular rate and rhythm Results Result Diagram: 04/21/1761904/21/17619 HARRY EDGE MD Apr 22, 2017 18:42
[2017-04-23] VITALS (12 sets, daily range): BP systolic 98–115; BP diastolic 44–69; PULSE 67–107; RESP 15–20
[2017-04-23] MEDS: HYDROCODONE/APAP (5/325) TAB PO PRN (01:55)
[2017-04-23] MEDS: FAMOTIDINE 20 MG TAB PO SCH ×2 (09:05→21:22)
[2017-04-23] MEDS: DOCUSATE SODIUM 100 MG CAP PO SCH ×2 (09:05→21:22)
--- NOTE | 2017-04-23 11:31 | CONS ---
Date/Time of Note Date/Time of Note DATE: 04/23/17 TIME: 11:30 Consult Date/Type/Reason Admit Date/Time Apr 11, 2017 at 03:50 Initial Consult Date 04/11/17 Type of Consultation: Pulmonary Subjective Patient comfortable sleeping. Chest x-ray showed no change in pneumothorax. Chest tubes are clamped. Objective Vital Signs Date Time Temp Pulse Resp B/P Pulse Ox O2 Delivery O2 Flow Rate FiO2 04/23/17 08:29 67 04/23/17 08:13 98.3 17 115/66 99 Intake and Output 04/22/17 04/22/17 04/23/17 14:59 22:59 06:59 Intake Total 960 ml 800 ml Output Total 0 ml 1200 ml 1800 ml Balance 0 ml -240 ml -1000 ml Exam Exam GENERAL: Well-developed gentleman comfortable at rest no acute distress VITAL SIGNS: per chart NECK: Supple. No JVD or lymphadenopathy. CARDIAC EXAM: S1, S2. No added sounds or murmurs. CHEST: clear bilaterally, No added sounds, rales or wheezes, chest tubes in place ABDOMEN: Soft, nontender. No guarding or rebound. EXTREMITIES: No cyanosis, clubbing or edema. NEUROLOGIC: Generalized weakness. No focal deficits. Results/Medications Result Diagram: 04/21/1761904/21/17619 Medications Current Medications Lorazepam (Ativan) 0.5 mg Q8H PRN PO ANXIETY; Start 04/11/17 at 04:00 Ondansetron HCl (Zofran Inj) 4 mg Q6H PRN IV NAUSEA AND/OR VOMITING; Start 04/11/17 at 04:00 Acetaminophen (Tylenol Tab) 650 mg Q6H PRN PO PAIN LEVEL 1-3 OR FEVER; Start 04/11/17 at 04:00 Famotidine (Pepcid) 20 mg Q12 PO Last administered on 04/23/17 09:05; Admin Dose 20 MG; Start 04/11/17 at 09:00 Acetaminophen/ Hydrocodone Bitart ([place] (5/325)) 1 tab Q4H PRN PO SOB Last administered on 04/23/17 01:55; Admin Dose 1 TAB; Start 04/11/17 at 16:00 Docusate Sodium (Colace) 100 mg BID PO Last administered on 04/23/17 09:05; Admin Dose 100 MG; Start 04/17/17 at 14:30 Polyethylene Glycol (Miralax) 17 gm DAILY PRN PO CONSTIPATION Last administered on 04/17/17t 14:11; Admin Dose 17 GM; Start 04/17/17 at 14:30 Hydrocortisone (Hydrocortisone 1% Cr) 1 applic BID PRN TOP itching; Start 04/19 at 13:30 Assessment/Plan Chief Complaint/Hosp Course Assessment 1. Spontaneous pneumothorax 2. Status post second chest tube placement still persistent small apical right pneumothorax on chest x-ray. Chest CT findings noted. Concern for apical bullae. Case was discussed with thoracic surgery. 3. Repeat chest x-ray this a.m shows tiny right apical pneumothorax. Chest tubes are clamped. Plan 1. DC chest tubes if okay with thoracic surgery 2. Encourage out of bed. 3. Decrease O2 as tolerated We will discuss with thoracic surgery DC chest tubes. Repeat chest x-ray this a.m. Problems: ANABEL BECKER MD, [facility] Apr 23, 2017 11:31
--- NOTE | 2017-04-23 13:28 | RADRPT ---
PROCEDURE: XR Chest. CLINICAL INDICATION: Chest pain TECHNIQUE: Single portable view of the chest was obtained COMPARISON: April 22, 2017 FINDINGS: The trachea is midline. The cardiac silhouette and pulmonary vascularity are within normal limits. T here is interval development of a large right-sided pneumothorax, with pleural separation measuring up to 5.0 cm. Status post removal of right-sided chest tubes. The left lung is clear. The left costo phrenic angle sharp. IMPRESSION: 1. INTERVAL DEVELOPMENT OF A LARGE RIGHT-SIDED PNEUMOTHORAX, WITH PLEURAL SEPARATION MEASURING UP TO 5.0 CM. STATUS POST REMOVAL OF 2 RIGHT-SIDED CHEST TUBES. 2. Left lung is clear. Critical findings were discussed with NNEKA Jett @ 1:30 PM on 04/23/17 who will relay findings to Dr. Yang. RPTAT: AAPP Physician Pati Date Time Electronically viewed and signed by Physician Pati on 04/23/2017 13:28 ANNA/
--- NOTE | 2017-04-23 14:21 | PN ---
Date/Time of Note Date/Time of Note DATE: 04/23/17 TIME: 14:17 Assessment/Plan VTE Prophylaxis VTE Prophylaxis Intervention: ambulation Lines/Catheters IV Catheter Type (from Nrs): Saline Lock Urinary Cath still in place: No Assessment/Plan Assessment/Plan 1. Right-sided spontaneous pneumothorax s/p 2 Chest tubes - Patient currently has chest tubes in place to water seal and plans for d/c today - repeat CXR taken yesterday and shows stable small right apical pneumothorax with [address] - CT surgery on board and recommendations appreciated. - Pulmonology on board as well and consultation appreciated - Patient admits to smoking marijuana and counseled about effects and PTX most likely secondary to rupture of subpleural bleb. - Pain management 2. Marijuana use - Counseled about cessation 3. irritation around nasal mucosa- resolved -2/2 NC plastic 4. Disposition - plans for d/c chest tube today Subjective 24 Hr Interval Summary Free Text/Dictation Patient doing well and no new complaints. No acute overnight events. Plans for chest tube removal today Exam/Review of Systems Vital Signs Vitals Vital Signs Date Time Temp Pulse Resp B/P Pulse Ox O2 Delivery O2 Flow Rate FiO2 04/23/17 12:14 97.9 77 20 106/56 99 Room Air Intake and Output 04/22/17 04/22/17 04/23/17 14:59 22:59 06:59 Intake Total 960 ml 800 ml Output Total 0 ml 1200 ml 1800 ml Balance 0 ml -240 ml -1000 ml Exam General: Patient is laying in bed and answers questions appropriately Mentation: Patient is alert and oriented 4, Eyes: EOMI, pupils reactive to light Neck: Supple, nontender, midline Respiratory: clear bilaterally, no wheezes or crackles. chest tubes in place Cardiovascular: regular rate, no obvious murmurs Gastrointestinal: non-tender to palpation, bowel sounds heard. Neurological: Moves all extremities spontaneously Skin: Chest tubes in place Results Result Diagram: 04/21/1761904/21/17619 Medications Medications Current Medications Lorazepam (Ativan) 0.5 mg Q8H PRN PO ANXIETY; Start 04/11/17 at 04:00 Ondansetron HCl (Zofran Inj) 4 mg Q6H PRN IV NAUSEA AND/OR VOMITING; Start 04/11/17 at 04:00 Acetaminophen (Tylenol Tab) 650 mg Q6H PRN PO PAIN LEVEL 1-3 OR FEVER; Start 04/11/17 at 04:00 Famotidine (Pepcid) 20 mg Q12 PO Last administered on 04/23/17 09:05; Admin Dose 20 MG; Start 04/11/17 at 09:00 Acetaminophen/ Hydrocodone Bitart ([place] (5/325)) 1 tab Q4H PRN PO SOB Last administered on 04/23/17 01:55; Admin Dose 1 TAB; Start 04/11/17 at 16:00 Docusate Sodium (Colace) 100 mg BID PO Last administered on 04/23/17 09:05; Admin Dose 100 MG; Start 04/17/17 at 14:30 Polyethylene Glycol (Miralax) 17 gm DAILY PRN PO CONSTIPATION Last administered on 04/17/17 14:11; Admin Dose 17 GM; Start 04/17/17 at 14:30 Hydrocortisone (Hydrocortisone 1% Cr) 1 applic BID PRN TOP itching; Start 04/19 at 13:30 ELIZABETH TRIVEDI MD Apr 23, 2017 14:20
--- NOTE | 2017-04-23 14:59 | PN ---
Date/Time of Note Date/Time of Note DATE: 04/23/17 TIME: 14:57 Assessment/Plan Lines/Catheters IV Catheter Type (from Nrsg): Saline Lock Mckeon in Place (from Nrsg): No Assessment/Plan Chief Complaint/Hosp Course Pneumothorax increased in size Spontaneous episode of right pneumothorax responding to a chest tube placement will continue chest tube suction SP 2nd CT CT clamped no significant increase in PTX CT removed, pt developed PTX I spoke with the pt he does not want a VATS procedure will ask IR to place pigtail cath with Heimlick valve Problems: Subjective 24 Hr Interval Summary Constitutional: improved Pain Control: mild Exam/Review of Systems Vital Signs Vitals Vital Signs Date Time Temp Pulse Resp B/P Pulse Ox O2 Delivery O2 Flow Rate FiO2 04/23/17 12:14 97.9 77 20 106/56 99 Room Air Intake and Output 04/22/17 04/22/17 04/23/17 14:59 22:59 06:59 Intake Total 960 ml 800 ml Output Total 0 ml 1200 ml 1800 ml Balance 0 ml -240 ml -1000 ml Exam Neck: non-tender, supple Respiratory: clear to auscultation, normal air movement Cardiovascular: nl pulses, regular rate and rhythm Gastrointestinal: nl liver, spleen, non-tender, soft Results Result Diagram: 04/21/1761904/21/17619 HARRY EDGE MD Apr 23, 2017 14:59
[2017-04-24] VITALS (11 sets, daily range): BP systolic 91–140; BP diastolic 51–73; PULSE 55–110; RESP 17–20
[2017-04-24] MEDS: HYDROCODONE/APAP (5/325) TAB PO PRN ×3 (00:12→19:57)
[2017-04-24] MEDS: DOCUSATE SODIUM 100 MG CAP PO SCH ×2 (09:00→21:22)
[2017-04-24] MEDS: FAMOTIDINE 20 MG TAB PO SCH ×2 (09:00→21:21)
--- NOTE | 2017-04-24 09:50 | PN ---
Date/Time of Note Date/Time of Note DATE: 04/24/17 TIME: 09:50 Assessment/Plan VTE Prophylaxis VTE Prophylaxis Intervention: ambulation Lines/Catheters IV Catheter Type (from Nrsg): Saline Lock Urinary Cath still in place: No Assessment/Plan Assessment/Plan 1. Right-sided spontaneous pneumothorax - Patient developed a large pneumothorax following removal yesterday. Plans to have pigtail cath placed today and will follow up with Pulm/CT for d/c planning - No acute respiratory distress appreciated - CT surgery on board and recommendations appreciated. - Pulmonology on board as well and consultation appreciated - Patient admits to smoking marijuana and counseled about effects and PTX most likely secondary to rupture of subpleural bleb. - Pain management 2. Marijuana use - Counseled about cessation 3. irritation around nasal mucosa- resolved -2/2 NC plastic 4. Disposition - plans for pigtail cath placement - d/c planning with Pulm and CT surgery Subjective 24 Hr Interval Summary Free Text/Dictation Patient resting comfortably in bed. No acute distress. Plans for pigtail cath to be placed today. No acute overnight events. Exam/Review of Systems Vital Signs Vitals Vital Signs Date Time Temp Pulse Resp B/P Pulse Ox O2 Delivery O2 Flow Rate FiO2 04/24/17 08:08 55 04/24/17 07:25 98.1 17 91/51 98 04/23/17 12:14 Room Air Intake and Output 04/23/17 04/23/17 04/24/17 15:00 23:00 07:00 Intake Total 240 ml 850 ml Output Total 600 ml Balance -360 ml 850 ml Exam General: Patient is laying in bed and answers questions appropriately Mentation: Patient is alert and oriented 4, Eyes: EOMI, pupils reactive to light Neck: Supple, nontender, midline Respiratory: diminished breath sounds right lung, no wheezes or crackles Cardiovascular: regular rate, no obvious murmurs Gastrointestinal: non-tender to palpation, bowel sounds heard. Neurological: Moves all extremities spontaneously Skin: dressing in place at site of previous chest tube insertion. no discharge or drainage Results Result Diagram: 04/21/1761904/21/17619 Results 24 hrs Laboratory Tests Test 04/24/17 07:38 Lab Scanned Report REFERENCE LAB Medications Medications Current Medications Lorazepam (Ativan) 0.5 mg Q8H PRN PO ANXIETY; Start 04/11/17 at 04:00 Ondansetron HCl (Zofran Inj) 4 mg Q6H PRN IV NAUSEA AND/OR VOMITING; Start 04/11/17 at 04:00 Acetaminophen (Tylenol Tab) 650 mg Q6H PRN PO PAIN LEVEL 1-3 OR FEVER; Start 04/11/17 at 04:00 Famotidine (Pepcid) 20 mg Q12 PO Last administered on 04/23/17 21:22; Admin Dose 20 MG; Start 04/11/17 at 09:00 Acetaminophen/ Hydrocodone Bitart ([place] (5/325)) 1 tab Q4H PRN PO SOB Last administered on 04/24/17 00:12; Admin Dose 1 TAB; Start 04/11/17 at 16:00 Docusate Sodium (Colace) 100 mg BID PO Last administered on 04/23/17 21:22; Admin Dose 100 MG; Start 04/17/17 at 14:30 Polyethylene Glycol (Miralax) 17 gm DAILY PRN PO CONSTIPATION Last administered on 04/17/17 14:11; Admin Dose 17 GM; Start 04/17/17 at 14:30 Hydrocortisone (Hydrocortisone 1% Cr) 1 applic BID PRN TOP itching; Start 04/19 at 13:30 ELIZABETH TRIVEDI MD Apr 24, 2017 09:50
[2017-04-24] MEDS ORDERED: LIDOCAINE 1% (MDV) 20 ML INJ ONE (10:17)
--- NOTE | 2017-04-24 12:16 | PDOCDIS ---
Discharge Instructions DIAGNOSIS Discharge Diagnosis 1. Right-sided spontaneous pneumothorax s/p chest tube placement CONDITION Patient Condition: Good HOME CARE INSTRUCTIONS: Diet Instructions: RegularSpecial Diet: REGULAR ACTIVITY: Activity Restrictions: No Restrictions FOLLOW UP/APPOINTMENTS Follow-up Plan 1. Follow up with Dr. Hernández as previously scheduled. 2. If experiencing worsening shortness of breath, return to ED 3. Follow up with your Primary care physician in 1 week REFERRALS Other Referrals Ulysses Hernández MD Specialty: Cardiothoracic Surgery Office Address [address] [place] [address] Office Chay Yang MD Specialty: Pulmonology Office Address [address] [place] [address] Office ELIZABETH TRIVEDI MD Apr 24, 2017 12:16
--- NOTE | 2017-04-24 15:53 | RADRPT ---
PROCEDURE: Fluoroscopic guided placement of right chest tube. CLINICAL INDICATION: Right pneumothorax. Shortness of breath. TECHNIQUE: Informed consent was obtained. The procedure, risks, benefits, complications and alternatives were explained to the patient. Risks including bleeding, infection, and pneumothorax were explained. The patient understood and was willing to proceed. A procedural pause was performed. The patient's name, date of , and procedure to be performed w ere verified. The right anterior/superior chest wall were prepped and draped in usual sterile fashion. Following the local injection of 1% lidocaine, a 19-gauge Yueh needle was advanced into the right pl eural space in the midclavicular line at the 3-4 interspace with fluoroscopic guidance. The Yueh met al needle was removed leaving the plastic outer cannula in position. A 0.035 inch guidewire was adv anced into the right pleural space through the plastic cannula with fluoroscopic guidance. The plas tic cannula was removed. The tract was dilated to 8-Kyrgyz. An 8.5 Kyrgyz multipurpose drainage ca theter was then advanced over the guide wire. The guidewire was removed. Fluoroscopic guidance dem onstrates the catheter in satisfactory position within the pleural space. The catheter was sutured to the patient's skin with 3-0 monofilament. A dressing was applied. The patient tolerated procedure well. A Heimlich valve was attached to the end of the chest tube. In addition, the chest tube was connected to a Pleur-Evac system. COMPARISON: Chest x-ray done earlier the same day. FINDINGS: Final images demonstrate the tip of the catheter in the upper right pleural space. A total of 0.1 m inutes of fluoroscopy time was used. 3 images of the chest were obtained with image intensifier. IMPRESSION: 1. Successful fluoroscopic guided placement of right chest tube. RPTAT: QQ .Patrick Marie MD, Date Time Electronically viewed and signed by .Patrick Marie MD, on 04/24/2017 15:52 .R/
--- NOTE | 2017-04-24 17:31 | RADRPT ---
PROCEDURE: XR Chest. CLINICAL INDICATION: Right pneumothorax. TECHNIQUE: Single frontal view. COMPARISON: 04/23/2017. FINDINGS: There is a new right chest 8-Thai pigtail chest tube in satisfactory position. The lungs are clear . The heart size is normal. There is no pleural effusion. There is a right pneumothorax measuring approximately 40%, slightly smaller than 04/23/2017. There is no left pneumothorax. IMPRESSION: 1. Right chest tube in satisfactory position. 2. Right pneumothorax measuring approximately 40%. 3. Otherwise unremarkable chest radiograph. RPTAT: QQ .Patrick Marie MD, MD Date Time Electronically viewed and signed by .Patrick Marie MD, MD on 04/24/2017 17:31 .R/
[2017-04-24] MEDS ORDERED: HYDROCODONE/APAP (10/325) TAB PO PRN (20:30)
[2017-04-24] MEDS ORDERED: morphine 2 MG INJ IV PRN (23:00)
[2017-04-25] VITALS (8 sets, daily range): BP systolic 91–119; BP diastolic 53–73; PULSE 51–93; RESP 17–19
--- NOTE | 2017-04-25 08:45 | RADRPT ---
PROCEDURE: XR Chest. CLINICAL INDICATION: Shortness of breath. TECHNIQUE: Single frontal view. COMPARISON: 04/24/2017. FINDINGS: The right chest tube is in satisfactory position. There is mild right basilar atelectasis. The lungs are otherwise clear. The heart size is normal. There is no pleural effusion. There is a small right pneumothorax measuring approximately 10%. There is no left pneumothorax. IMPRESSION: 1. Right chest tube in satisfactory position. 2. Right pneumothorax measuring approximately 10%. 3. Mild right basilar atelectasis. 4. Otherwise unremarkable chest radiograph. RPTAT: QQ .Patrick Marie MD, MD Date Time Electronically viewed and signed by .Patrick Marie MD, MD on 04/25/2017 08:44 .R/
[2017-04-25] MEDS: FAMOTIDINE 20 MG TAB PO SCH (09:23)
[2017-04-25] MEDS: DOCUSATE SODIUM 100 MG CAP PO SCH (09:24)
--- NOTE | 2017-04-25 09:34 | PN ---
Date/Time of Note Date/Time of Note DATE: 04/25/17 TIME: 09:30 Assessment/Plan VTE Prophylaxis VTE Prophylaxis Intervention: ambulation Lines/Catheters IV Catheter Type (from Nrs): Saline Lock Urinary Cath still in place: No Assessment/Plan Assessment/Plan 1. Right-sided spontaneous pneumothorax - Patient water sealed since 7 am and repeat CXR at 9am showed small pneumothorax of 10%. Pigtail catheter in place and will disconnect from unit prior to discharge - No acute respiratory distress appreciated - CT surgery on board and recommendations appreciated. Patient has follow up appointment scheduled already - Pulmonology on board as well and consultation appreciated - Patient admits to smoking marijuana and counseled about effects and PTX most likely secondary to rupture of subpleural bleb. - Pain management 2. Marijuana use - Counseled about cessation 3. irritation around nasal mucosa- resolved -2/2 NC plastic 4. Disposition - CXR shows improvement of pneumothorax - Awaiting Pulm clearance for d/c home today Subjective 24 Hr Interval Summary Free Text/Dictation Patient resting comfortably in no acute distress. Chest tube has been water sealed since 7am and repeat CXR at 9am showed improvement of pneumo. No acute overnight events and no new complaints. Exam/Review of Systems Vital Signs Vitals Vital Signs Date Time Temp Pulse Resp B/P Pulse Ox O2 Delivery O2 Flow Rate FiO2 04/25/17 08:17 51 04/25/17 07:32 97.3 18 91/53 100 04/24/17 12:46 Room Air Intake and Output 04/24/17 04/24/17 04/25/17 15:00 23:00 07:00 Intake Total 840 ml 900 ml Output Total 1200 ml 1250 ml Balance -360 ml -350 ml Exam General: Patient is resting comfortably, no acute distress Mentation: Patient is alert and oriented 4, Eyes: EOMI, pupils reactive to light Neck: Supple, nontender, midline Respiratory: diminished breath sounds right lung, no wheezes or crackles Cardiovascular: regular rate, no obvious murmurs Gastrointestinal: non-tender to palpation, bowel sounds heard. Neurological: Moves all extremities spontaneously Skin:Right pigtail tube in place. no discharge or drainage Results Result Diagram: 04/21/1720 04/21/17 0620 Medications Medications Current Medications Lorazepam (Ativan) 0.5 mg Q8H PRN PO ANXIETY; Start 04/11/17 at 04:00 Ondansetron HCl (Zofran Inj) 4 mg Q6H PRN IV NAUSEA AND/OR VOMITING; Start 04/11/17 at 04:00 Acetaminophen (Tylenol Tab) 650 mg Q6H PRN PO PAIN LEVEL 1-3 OR FEVER; Start 04/11/17 at 04:00 Famotidine (Pepcid) 20 mg Q12 PO Last administered on 04/25/17 09:23; Admin Dose 20 MG; Start 04/11/17 at 09:00 Acetaminophen/ Hydrocodone Bitart ([place] (5/325)) 1 tab Q4H PRN PO SOB Last administered on 04/24/17 19:57; Admin Dose 1 TAB; Start 04/11/17 at 16:00 Docusate Sodium (Colace) 100 mg BID PO Last administered on 04/25/17 09:24; Admin Dose 100 MG; Start 04/17/17 at 14:30 Polyethylene Glycol (Miralax) 17 gm DAILY PRN PO CONSTIPATION Last administered on 04/17/17 14:11; Admin Dose 17 GM; Start 04/17/17 at 14:30 Hydrocortisone (Hydrocortisone 1% Cr) 1 applic BID PRN TOP itching; Start 04/19 at 13:30 Acetaminophen/ Hydrocodone Bitart ([place] (10/325)) 1 tab Q4H PRN PO PAIN Last administered on 04/25/17 02:47; Admin Dose 1 TAB; Start 04/24/17 at 20:30 Morphine Sulfate (morphine) 2 mg Q4H PRN IV PAIN LEVEL 8-10 Last administered on 04/24/17 23:02; Admin Dose 2 MG; Start 04/24/17 at 23:00 ELIZABETH TRIVEDI MD Apr 25, 2017 09:34
[2017-04-25] MEDS ORDERED: HYDR-3498 PO (09:43)
--- NOTE | 2017-04-25 09:45 | PDOCDIS ---
Discharge Instructions DIAGNOSIS Discharge Diagnosis 1. Right-sided spontaneous pneumothorax s/p chest tube placement CONDITION Patient Condition: Good HOME CARE INSTRUCTIONS: Diet Instructions: RegularSpecial Diet: REGULAR ACTIVITY: Activity Restrictions: No Restrictions FOLLOW UP/APPOINTMENTS Follow-up Plan 1. Follow up with Dr. Hernández in 1 week 2. You will need a repeat CXR in 2 days 3. If experiencing worsening shortness of breath, return to ED 4. Follow up with your Primary care physician in 1 week REFERRALS Other Referrals Ulysses Hernández MD Specialty: Cardiothoracic Surgery Office Address [address] [place] [address]. [address] [place] [address] Office OTHER ORDERS: Other Orders: CXR in 2 days, 04/27 ELIZABETH TRIVEDI MD Apr 25, 2017 09:45
--- NOTE | 2017-04-25 11:32 | CONS ---
Date/Time of Note Date/Time of Note DATE: 04/25/17 TIME: 11:30 Assessment/Plan Assessment/Plan Additional Assessment/Plan Chest x-ray was reviewed from today which is totally clear. No right-sided pneumothorax seen. Assessment and recommendations; 1. Patient admitted with spontaneous right pneumothorax status post chest tube placement, patient developed pneumothorax after chest tube clamping requiring subsequent hemolytic valve placement on the right side. 2. Ideally patient would have required a VATS procedure however the patient has adamantly refused any surgical intervention. Continue current supportive care. The risk of another spontaneous pneumothorax is approximately 20%. The patient is well aware of that and is willing to undertake take that chance. Consultation Date/Type/Reason Admit Date/Time Apr 11, 2017 at 03:50 Initial Consult Date 04/11/17 Type of Consultation: Pulmonary 24 HR Interval Summary Free Text/Dictation Patient's condition is stable. Denies any shortness of breath. General exam; young male, awake alert, currently in no distress. Exam/Review of Systems Vital Signs Vitals Vital Signs Date Time Temp Pulse Resp B/P Pulse Ox O2 Delivery O2 Flow Rate FiO2 04/25/17 11:25 98.8 56 18 115/61 98 04/24/17 12:46 Room Air Intake and Output 04/24/17 04/24/17 04/25/17 15:00 23:00 07:00 Intake Total 840 ml 900 ml Output Total 1200 ml 1250 ml Balance -360 ml -350 ml Exam HEENT exam; supple neck, no JVD. No lymphadenopathy. Midline trachea. No thyromegaly. Patient has fair dentition. Chest exam; clear to auscultation. Right side chest tube in place. S1-S2 audible, no murmurs. Regular rhythm. Abdomen exam; soft, nontender. No organomegaly. Bowel sounds audible. Extremity exam; no peripheral edema. DIRECTOR [employer]ASURES exam; no focal deficit. Results Result Diagram: 04/21/1761904/21/17619 Medications Medications Current Medications Lorazepam (Ativan) 0.5 mg Q8H PRN PO ANXIETY; Start 04/11/17 at 04:00 Ondansetron HCl (Zofran Inj) 4 mg Q6H PRN IV NAUSEA AND/OR VOMITING; Start 04/11/17 at 04:00 Acetaminophen (Tylenol Tab) 650 mg Q6H PRN PO PAIN LEVEL 1-3 OR FEVER; Start 04/11/17 at 04:00 Famotidine (Pepcid) 20 mg Q12 PO Last administered on 04/25/17 09:23; Admin Dose 20 MG; Start 04/11/17 at 09:00 Acetaminophen/ Hydrocodone Bitart ([place] (5/325)) 1 tab Q4H PRN PO SOB Last administered on 04/24/17 19:57; Admin Dose 1 TAB; Start 04/11/17 at 16:00 Docusate Sodium (Colace) 100 mg BID PO Last administered on 04/25/17 09:24; Admin Dose 100 MG; Start 04/17/17 at 14:30 Polyethylene Glycol (Miralax) 17 gm DAILY PRN PO CONSTIPATION Last administered on 04/17/17 14:11; Admin Dose 17 GM; Start 04/17/17 at 14:30 Hydrocortisone (Hydrocortisone 1% Cr) 1 applic BID PRN TOP itching; Start 04/19 at 13:30 Acetaminophen/ Hydrocodone Bitart ([place] (10/325)) 1 tab Q4H PRN PO PAIN Last administered on 04/25/17 02:47; Admin Dose 1 TAB; Start 04/24/17 at 20:30 Morphine Sulfate (morphine) 2 mg Q4H PRN IV PAIN LEVEL 8-10 Last administered on 04/24/17 23:02; Admin Dose 2 MG; Start 04/24/17 at 23:00 LUISITO FRANCO Apr 25, 2017 11:32
--- NOTE | 2017-04-25 13:56 | PN ---
Date/Time of Note Date/Time of Note DATE: 04/25/17 TIME: 13:55 Assessment/Plan Lines/Catheters IV Catheter Type (from Nrs): Saline Lock Mckeon in Place (from Nrsg): No Assessment/Plan Chief Complaint/Hosp Course Pneumothorax increased in size Spontaneous episode of right pneumothorax responding to a chest tube placement will continue chest tube suction S I spoke with the pt he does not want a VATS procedure Plan to DC home with pigtail cath Heimlick valve Problems: Subjective 24 Hr Interval Summary Constitutional: improved Exam/Review of Systems Vital Signs Vitals Vital Signs Date Time Temp Pulse Resp B/P Pulse Ox O2 Delivery O2 Flow Rate FiO2 04/25/17 12:10 52 04/25/17 11:25 98.8 18 115/61 98 04/24/17 12:46 Room Air Intake and Output 04/24/17 04/24/17 04/25/17 15:00 23:00 07:00 Intake Total 840 ml 900 ml Output Total 1200 ml 1250 ml Balance -360 ml -350 ml Exam ENMT: mucosa pink and moist, nl external ears & nose, nl lips & teeth, nl nasal mucosa & septum Neck: non-tender, supple Respiratory: clear to auscultation, normal air movement Cardiovascular: nl pulses, regular rate and rhythm Results Result Diagram: 04/21/1761904/21/17619 HARRY EDGE MD Apr 25, 2017 13:56
--- NOTE | 2017-04-25 19:59 | DS ---
Date/Time of Note Date/Time of Note DATE: 04/25/17 TIME: 19:44 Discharge Summary Admission/Discharge Info Admit Date/Time Apr 11, 2017 at 03:50 Discharge Date/Time Apr 25, 2017 at 15:12 Discharge Diagnosis 1. Right-sided spontaneous pneumothorax s/p chest tube placement Patient Condition: Good Consults Pulmonology CT Surgery Procedures Right sided chest tube placement x2 Right side pigtail cath Heimlick valve Hx of Present Illness Chief complaint: Shortness of breath, chest pain, This is a 21-year-old male presents to the ER with cough and shortness of breath that started last night. Patient states that he feels like he has something in the middle of his chest and feels like he cannot take a deep breath in. He denies any fevers or chills. Patient went to an ER last night, however left before being seen. Has not had any trauma. He has not traveled anywhere. He does not have any leg pain, redness or swelling. I did discuss the case with the ED physician who also states that the patient reported marijuana use. Allergies: NKDA Medications: None Hospital Course Patient had chest tube placement by ED physician and placed on water seal. Pulmonology and CT surgery were consulted for further management of right pneumothorax. Patient was followed with serial chest xrays and leak was detected in chest tube. A second chest was placed and placed on wall suction. Patients pneumothorax continued to fluctuate in size until stable. One chest tube was removed and serial CXRs showed a small apical pneumothorax that was unchanged. Chest tube was removed and repeat chest xray showed return of pneumothorax that was 50% in size. Patient was offered VATS but he refused surgical procedure. He was advised a chest tube needed to be replaced to allow further lung expansion. Patient discussed with his mother and pigtail catheter with hemlick valve was place by IR and hooked to wall suction. Repeat CXR showed improvement to 40% and wall suction was continued overnight night. Tube was placed on water seal in the am and repeat cxr showed improvement to 10% . Patient was again advised he will most likely need surgery but declined again. Patient was instructed to have follow up CXR performed in 2 days on and follow up with CT Surgery next week. Patients hemlick valve was disconnected and patient discharged home in stable condition. Home Meds Active Scripts Hydrocodone Bit-Acetaminophen (Hydrocodone Bit-APAP) 5-325MG Tablet, 1 TAB PO Q6 Y for SOB for 10 Days, #20 TAB Prov:ELIZABETH TRIVEDI MD 04/25/17 Follow-up Plan 1. Follow up with Dr. Hernández in 1 week 2. You will need a repeat CXR in 2 days 3. If experiencing worsening shortness of breath, return to ED 4. Follow up with your Primary care physician in 1 week Primary Care Provider Care Physician No Primary Time spent on discharge: > 30 minutes ELIZABETH TRIVEDI MD Apr 25, 2017 19:58
== END 2017-04-25 15:12 | disposition home or self-care (01) | DRG 201 ==
LOC: FTE 23:38 → MS3 04-11 03:50 → TEL 04-11 23:22 → MS3 04-11 23:22 → TEL 04-12 04:48
PROVIDERS: ADMIT Family Medicine; ATTEND Family Medicine
PROC: 0W9900Z Drainage of Right Pleural Cavity with Drainage Device, Open Approach (ICD-10-PCS; principal; 2017-04-11)
DX: J93.0 Spontaneous tension pneumothorax (principal); F12.90 Cannabis use, unspecified, uncomplicated
CPT/HCPCS: 36415; 71010; 71020; 71250; 75984; 75989; 80048; 80053; 80069; 80307; 81001; 82728; 83690; 83735; 84100; 85014; 85018; 85025; 85610; 85730; 90686; 93005; 96374; 96375; J1200; J2060; J2250; J2270; J3010; J7040

== ENCOUNTER → 2017-04-27 | Outpatient (CLI) | payer OTHER ==
[~2017-04-27] MED LIST: HYDR-3498 PO
--- NOTE | 2017-04-27 21:16 | RADRPT ---
PROCEDURE: XR Chest. CLINICAL INDICATION: Shortness of breath. TECHNIQUE: Two views. Frontal and lateral. COMPARISON: 04/25/2017. FINDINGS: The right chest tube is in satisfactory position. Previously noted right basilar atelectasis is no l onger present. The lungs are now clear. The heart size is normal. There is no pleural effusion. There is no pneumothorax. IMPRESSION: 1. Right chest tube in satisfactory position. 2. Clear lungs. 3. No pneumothorax. RPTAT: QQ .Patrick Marie MD, MD Date Time Electronically viewed and signed by .Patrick Marie MD, MD on 04/27/2017 21:16 .R/
== END | disposition home or self-care (01) ==
LOC: RAD 18:48
PROVIDERS: ATTEND Internal Medicine
DX: J93.83 Other pneumothorax (principal)
CPT/HCPCS: 71020

== ENCOUNTER 2017-05-05 18:16 | Inpatient (IN) | payer OTHER ==
[~2017-05-05] VITALS: Ht 172.7 cm; Wt 58.9 kg
[2017-05-05 19:24] LABS: BASOPHILS % 0.3 % (0.0-2.0); HEMATOCRIT 42.7 % (42.0-52.0); HEMOGLOBIN 15.3 g/dl (14.0-18.0); LYMPHOCYTES # 1.4 10^3/ul (0.8-2.9); MEAN CORPUSCULAR HEMOGLOBIN 32.1 pg (29.0-33.0); MEAN CORPUSCULAR HGB CONC 35.8 g/dl (32.0-37.0); MEAN CORPUSCULAR VOLUME 89.5 fl (82.0-101.0); MEAN PLATELET VOLUME 9.6 fl (7.4-10.4); MONOCYTE # 0.6 10^3/ul (0.3-0.9); MONOCYTES % 5.2 % (0.0-11.0); NEUTROPHIL # 9.8 10^3/ul (1.6-7.5); NEUTROPHILS % 82.2 % (39.0-77.0); PLATELET COUNT 253 10^3/UL (140-415); RED BLOOD COUNT 4.77 10^6/ul (4.70-6.10); RED CELL DISTRIBUTION WIDTH 12.2 % (11.5-14.5); WHITE BLOOD COUNT 11.9 10^3/ul (4.8-10.8)
--- NOTE | 2017-05-05 19:30 | RADRPT ---
PROCEDURE: Chest xray. CLINICAL INDICATION: Probable pneumothorax, chest tube in place. Shortness of breath. TECHNIQUE: A portable semiupright AP view of the chest was obtained. COMPARISON: 04/25/2017 FINDINGS: There is a large right-sided pneumothorax. There is a pleural pigtail catheter projecting in the rig ht upper lung zone, similar to 04/25/2017. The left lung is well expanded and clear. The cardiomedia stinal silhouette is within normal limits. There is no evidence of pleural effusion. The skeletal st ructures and soft tissues are unremarkable. IMPRESSION: Large right-sided pneumothorax. Right-sided pleural catheter in place. The presence of a large right-sided pneumothorax was communicated to Dr. Wall via telephone on 04/12 at 07:26 p.m. RPTAT: HKMK .Shelley Patel MD, Date Time Electronically viewed and signed by .Shelley Patel MD, on 05/05/2017 19:30 .K/
[2017-05-05] MEDS ORDERED: HYDROmorphONE 1 MG/ML SYG IV STA (19:42)
[2017-05-05 19:47] LABS: ANION GAP 21 (8-16); BLOOD UREA NITROGEN 12 mg/dl (7-20); CALCIUM 10.1 mg/dl (8.4-10.2); CARBON DIOXIDE 27 mmol/L (21-31); CHLORIDE 100 mmol/L (97-110); GLUCOSE 88 mg/dl (70-220); POTASSIUM 3.8 mmol/L (3.5-5.1); SODIUM 144 mmol/L (135-144)
[2017-05-05] MEDS ORDERED: PROPOFOL 200 MG INJ IV ONE (20:00)
[2017-05-05 20:08] LABS: TROPONIN-I < 0.012 ng/ml (0.00-0.12)
--- NOTE | 2017-05-05 20:56 | RADRPT ---
PROCEDURE: Chest xray. CLINICAL INDICATION: Postprocedure TECHNIQUE: A portable semiupright AP view of the chest was obtained. COMPARISON: 05/05/2017 6:57 p.m. FINDINGS: There is been interval placement of a right-sided chest tube with its tip and side-hole projecting i n the right upper lung zone. The previously noted right-sided pigtail pleural catheter remains. Ther e has been interval reexpansion of the right lung. There is a small residual right-sided pneumothora x. The left lung is well expanded. No focal consolidation or pleural effusion is identified. IMPRESSION: Interval placement of a right-sided chest tube with re-expansion of the right lung. Small residual right pneumothorax. RPTAT:HKMK .Shelley Patel MD, Date Time Electronically viewed and signed by .Shelley Patel MD, on 05/05/2017 20:56 .K/
[2017-05-05] MEDS ORDERED: FENTAnyl 50 MCG/ML VIAL IV ONE (21:00)
[2017-05-05] MEDS ORDERED: OXYCODONE/ACETAMINOPHEN (5/325) TAB PO ONE (21:00)
[2017-05-05] MEDS ORDERED: ONDANSETRON 4 MG INJ IV STA (21:08)
[2017-05-05] MEDS ORDERED: ONDANSETRON 4 MG INJ IV PRN (21:30)
[2017-05-05] MEDS ORDERED: ACETAMINOPHEN 325 MG TAB PO PRN (21:30)
[2017-05-05 21:59] VITALS: TEMP 98
[2017-05-05 23:00] VITALS: BP 129/81; RESP 18
--- NOTE | 2017-05-05 23:05 | ERD ---
ER Documentation Chief Complaint Chief Complaint Sob with back pain x today has chest tube HX pneumothorax HPI This 21-year-old male presents with shortness of breath and pain in the right side of his back that began today. Also has some anterior chest pain but this is minimal. Had a recent pneumothorax and has a anterior pigtail chest tube in place. This was placed at this hospital. Denies any fevers or chills. ROS All systems reviewed and are negative except as per history of present illness. Medications Home Meds Active Scripts Hydrocodone Bit-Acetaminophen (Hydrocodone Bit-APAP) 5-325MG Tablet, 1 TAB PO Q6 Y for SOB for 10 Days, #20 TAB Prov:ELIZABETH TRIVEDI MD 04/25/17 Allergies Allergies: Coded Allergies: No Known Allergy (Unverified , 05/05/17) PMhx/Soc Medical and Surgical Hx: pt denies Medical Hx, pt denies Surgical Hx History of Surgery: No Anesthesia Reaction: No Hx Neurological Disorder: No Hx Respiratory Disorders: No Hx Cardiac Disorders: No Hx Psychiatric Problems: No Hx Miscellaneous Medical Probl: No Hx Alcohol Use: Yes (occasional) Hx Substance Use: Yes (Marijuana, occasional) Hx Tobacco Use: No Smoking Status: Never smoker Physical Exam Vitals Vital Signs Date Time Temp Pulse Resp B/P Pulse Ox O2 Delivery O2 Flow Rate FiO2 05/05/17 21:59 98.0 88 19 112/80 99 Room Air Nasal Cannula 05/05/17 21:00 98.0 91 23 116/87 97 Room Air Nasal Cannula 05/05/17 19:45 99.2 109 20 131/100 97 Room Air Nasal Cannula 05/05/17 18:40 Nasal Cannula 2.0 05/05/17 18:40 99.2 102 22 109/93 99 Nasal Cannula 05/05/17 18:17 99.2 95 22 138/87 95 Physical Exam Const: [] Moderate to severe distress Head: Atraumatic Eyes: Normal Conjunctiva ENT: Normal External Ears, Nose and Mouth. Neck: Full range of motion..~ No meningismus. Resp: Absence of breath sounds on entire right side of lung anteriorly and posteriorly. Anterior chest with intact dressing with tubular ventilation structure hanging out. Cardio: Regular tachycardia, no murmurs Abd: Soft, non tender, non distended. Normal bowel sounds Skin: No petechiae or rashes, sutures intact and right lateral mid axillary line approximately the sixth rib with completely healed laceration. Back: No midline or flank tenderness Ext: No cyanosis, or edema Neur: Awake and alert and oriented 3, no focal deficits Psych: Normal Mood and Affect Result Diagram: 05/05/17185005/05/171850 Results 24 hrs Laboratory Tests Test 05/05/17 18:51 White Blood Count 11.910^3/ul Red Blood Count 4.7710^6/ul Hemoglobin 15.3g/dl Hematocrit 42.7% Mean Corpuscular Volume 89.5fl Mean Corpuscular Hemoglobin 32.1pg Mean Corpuscular Hemoglobin Concent 35.8g/dl Red Cell Distribution Width 12.2% Platelet Count 43249^3/UL Mean Platelet Volume 9.6fl Neutrophils % 82.2% Lymphocytes % 12.0% Monocytes % 5.2% Eosinophils % 0.0% Basophils % 0.3% Nucleated Red Blood Cells % 0.0/100WBC Neutrophils # 9.810^3/ul Lymphocytes # 1.410^3/ul Monocytes # 0.610^3/ul Eosinophils # 0.010^3/ul Basophils # 0.010^3/ul Nucleated Red Blood Cells # 0.010^3/ul Sodium Level 144mmol/L Potassium Level 3.8mmol/L Chloride Level 100mmol/L Carbon Dioxide Level 27mmol/L Anion Gap 21 Blood Urea Nitrogen 12mg/dl Creatinine 0.80mg/dl Glucose Level 88mg/dl Calcium Level 10.1mg/dl Troponin I < 0.012ng/ml Current Medications Medications (Trade) Dose Ordered Sig/Jackeline Route PRN Reason Start Time Stop Time Status Last Admin Dose Admin Hydromorphone HCl (Dilaudid) 1 mg ONCE STAT IV 05/05/17 19:42 05/05/17 19:44 DC 05/05/17 19:47 Propofol (Diprivan) 120 mg ONCE ONCE IV 05/05/17 20:00 05/05/17 20:01 DC 05/05/17 19:48 Fentanyl (Sublimaze) 50 mcg ONCE ONCE IV 05/05/17 21:00 05/05/17 21:01 DC 05/05/17 20:58 Oxycodone/ Acetaminophen (Percocet (5/ 325)) 1 tab ONCE ONCE PO 05/05/17 21:00 05/05/17 21:01 DC 05/05/17 20:59 Ondansetron HCl (Zofran Inj) 4 mg ONCE STAT IV 05/05/17 21:08 05/05/17 21:09 DC 05/05/17 21:09 Ondansetron HCl (Zofran Inj) 4 mg ER BRIDGE PRN IV NAUSEA AND/OR VOMITING 05/05/17 21:30 05/06/17 21:29 Acetaminophen (Tylenol Tab) 650 mg ER BRIDGE PRN PO MILD PAIN/FEVER 05/05/17 21:30 05/06/17 21:29 Procedures/MDM There is a spontaneous pneumothorax and young adult male with acute distress and unstable vital signs. Quickly placed another chest tube in the anterior axillary line which resolved his pneumothorax. His vital signs stabilized and he felt much better with no shortness of breath. Is unknown why his other chest tube failed as the pigtail within his chest her heart may have gotten clogged. I left this tube in place for possible troubleshooting of what went wrong by expert such as Dr. Marie who had placed this tube. Patient had no signs of cardiac ischemia or any other acute abnormality. Being admitted to telemetry for further workup. Chest tube placement note: Patient was placed on monitor with respiratory therapy at bedside. Pretreated with Dilaudid initially. Copious Betadine was used to sterilize the area to dry. Sterile technique was used with drapes, mass Gloves. He was anesthetized with 4 cc of lidocaine with epinephrine just at and over the fifth rib. 2 cm incision was made with 11 blade scalpel. Magalis forceps were used to go through the lung into the pleural space. Palpation showed no adhesions. 20 Hungarian chest tube was easily placed in the cephalad direction but no resistance. Vaseline gauze was used. There was good condensation. Laceration always sutured at its midline and tube was fastened with multiple loops tightening of the sutures. Also fastened with cramping with chest tube and gauze was placed anywhere the chest tube was in contact with skin. This was then attached to the Pleur-evac and no air leak was observed. Patient taught the procedure with no complications Procedural sedation note: Was placed on a monitor and respiratory therapy was at bedside. ASA classification 1. Entitled CO2 was used. I observed in nurse pushed propofol and 40 g increments in order to provide procedural sedation. Patient took a total of 5 increments or 200 mg of propofol before he was moderately sedated no longer reacting to the procedure moving his arms. He did remain awake. The sedation weekly wore off and he had no unstable vital signs on the monitor except for the tachycardia and tachypnea which is initially present. No decreased blood pressure. He emerged from the propofol alert mental status with no complications. Departure Diagnosis: Primary Impression: Recurrent spontaneous pneumothorax Additional Impressions: Respiratory distress Chest pain Tachycardia Condition: Serious ROBERT LIMON DO May 05, 2017 23:05
--- NOTE | 2017-05-05 23:06 | ERD ---
ER Documentation Chief Complaint Chief Complaint Sob with back pain x today has chest tube HX pneumothorax ROS All systems reviewed and are negative except as per history of present illness. Medications Home Meds Active Scripts Hydrocodone Bit-Acetaminophen (Hydrocodone Bit-APAP) 5-325MG Tablet, 1 TAB PO Q6 Y for SOB for 10 Days, #20 TAB Prov:ELIZABETH TRIVEDI MD 04/25/17 Allergies Allergies: Coded Allergies: No Known Allergy (Unverified , 05/05/17) PMhx/Soc Medical and Surgical Hx: pt denies Medical Hx, pt denies Surgical Hx History of Surgery: No Anesthesia Reaction: No Hx Neurological Disorder: No Hx Respiratory Disorders: No Hx Cardiac Disorders: No Hx Psychiatric Problems: No Hx Miscellaneous Medical Probl: No Hx Alcohol Use: Yes (occasional) Hx Substance Use: Yes (Marijuana, occasional) Hx Tobacco Use: No Smoking Status: Never smoker Physical Exam Vitals Vital Signs Date Time Temp Pulse Resp B/P Pulse Ox O2 Delivery O2 Flow Rate FiO2 05/05/17 21:59 98.0 88 19 112/80 99 Room Air Nasal Cannula 05/05/17 21:00 98.0 91 23 116/87 97 Room Air Nasal Cannula 05/05/17 19:45 99.2 109 20 131/100 97 Room Air Nasal Cannula 05/05/17 18:40 Nasal Cannula 2.0 05/05/17 18:40 99.2 102 22 109/93 99 Nasal Cannula 05/05/17 18:17 99.2 95 22 138/87 95 Physical Exam Const: [] Head: Atraumatic Eyes: Normal Conjunctiva ENT: Normal External Ears, Nose and Mouth. Neck: Full range of motion..~ No meningismus. Resp: Clear to auscultation bilaterally Cardio: Regular rate and rhythm, no murmurs Abd: Soft, non tender, non distended. Normal bowel sounds Skin: No petechiae or rashes Back: No midline or flank tenderness Ext: No cyanosis, or edema Neur: Awake and alert Psych: Normal Mood and Affect Result Diagram: 05/05/17185005/05/171850 Results 24 hrs Laboratory Tests Test 05/05/17 18:51 White Blood Count 11.910^3/ul Red Blood Count 4.7710^6/ul Hemoglobin 15.3g/dl Hematocrit 42.7% Mean Corpuscular Volume 89.5fl Mean Corpuscular Hemoglobin 32.1pg Mean Corpuscular Hemoglobin Concent 35.8g/dl Red Cell Distribution Width 12.2% Platelet Count 06737^3/UL Mean Platelet Volume 9.6fl Neutrophils % 82.2% Lymphocytes % 12.0% Monocytes % 5.2% Eosinophils % 0.0% Basophils % 0.3% Nucleated Red Blood Cells % 0.0/100WBC Neutrophils # 9.810^3/ul Lymphocytes # 1.410^3/ul Monocytes # 0.610^3/ul Eosinophils # 0.010^3/ul Basophils # 0.010^3/ul Nucleated Red Blood Cells # 0.010^3/ul Sodium Level 144mmol/L Potassium Level 3.8mmol/L Chloride Level 100mmol/L Carbon Dioxide Level 27mmol/L Anion Gap 21 Blood Urea Nitrogen 12mg/dl Creatinine 0.80mg/dl Glucose Level 88mg/dl Calcium Level 10.1mg/dl Troponin I < 0.012ng/ml Current Medications Medications (Trade) Dose Ordered Sig/Jackeline Route PRN Reason Start Time Stop Time Status Last Admin Dose Admin Hydromorphone HCl (Dilaudid) 1 mg ONCE STAT IV 05/05/17 19:42 05/05/17 19:44 DC 05/05/17 19:47 Propofol (Diprivan) 120 mg ONCE ONCE IV 05/05/17 20:00 05/05/17 20:01 DC 05/05/17 19:48 Fentanyl (Sublimaze) 50 mcg ONCE ONCE IV 05/05/17 21:00 05/05/17 21:01 DC 05/05/17 20:58 Oxycodone/ Acetaminophen (Percocet (5/ 325)) 1 tab ONCE ONCE PO 05/05/17 21:00 05/05/17 21:01 DC 05/05/17 20:59 Ondansetron HCl (Zofran Inj) 4 mg ONCE STAT IV 05/05/17 21:08 05/05/17 21:09 DC 05/05/17 21:09 Ondansetron HCl (Zofran Inj) 4 mg ER BRIDGE PRN IV NAUSEA AND/OR VOMITING 05/05/17 21:30 05/06/17 21:29 Acetaminophen (Tylenol Tab) 650 mg ER BRIDGE PRN PO MILD PAIN/FEVER 05/05/17 21:30 05/06/17 21:29 Procedures/MDM Chest x-ray interpretation #1: Complete collapse of right lung with pigtail chest tube in place, no palmar edema, no obvious infiltrate, no fractures Chest x-ray interpretation #2: Interval resolution reinflation of right lung with possible small residual pneumothorax at the apex. Chest tube is in place near the apex, no pulmonary edema, no widened mediastinum, no fractures Critical care time greater than 35 minutes: This includes treatment of unstable vital signs, visits patient's bedside to assess his status. This does not include any time placing the chest tube, does include management of Pleur-evac and suction levels, review of chart, discussion with patient and admitting doctor. This does not include any billable procedures. Departure Diagnosis: Primary Impression: Recurrent spontaneous pneumothorax Additional Impressions: Respiratory distress Tachycardia Chest pain Condition: Serious ROBERT LIMON DO May 05, 2017 23:06
[2017-05-05 23:12] VITALS: PULSE 80
[2017-05-05 23:34] VITALS: Ht 172.7 cm; Wt 58.9 kg
[2017-05-06] VITALS (11 sets, daily range): BP systolic 104–120; BP diastolic 58–77; PULSE 60–102; RESP 17–18
[2017-05-06] MEDS: morphine 4 MG/ML VIAL IV PRN ×3 (02:31→18:18)
[2017-05-06 07:33] LABS: BASOPHILS % 0.2 % (0.0-2.0); EOSINOPHILS % 0.1 % (0.0-7.0); HEMATOCRIT 39.2 % (42.0-52.0); HEMOGLOBIN 13.8 g/dl (14.0-18.0); LYMPHOCYTES # 1.7 10^3/ul (0.8-2.9); LYMPHOCYTES % 11.3 % (15.0-51.0); MEAN CORPUSCULAR HEMOGLOBIN 31.8 pg (29.0-33.0); MEAN CORPUSCULAR HGB CONC 35.2 g/dl (32.0-37.0); MEAN CORPUSCULAR VOLUME 90.3 fl (82.0-101.0); MEAN PLATELET VOLUME 9.4 fl (7.4-10.4); MONOCYTE # 0.9 10^3/ul (0.3-0.9); MONOCYTES % 5.9 % (0.0-11.0); NEUTROPHIL # 12.3 10^3/ul (1.6-7.5); NEUTROPHILS % 82.2 % (39.0-77.0); PLATELET COUNT 220 10^3/UL (140-415); RED BLOOD COUNT 4.34 10^6/ul (4.70-6.10); RED CELL DISTRIBUTION WIDTH 12.2 % (11.5-14.5)
[2017-05-06 07:55] LABS: ALBUMIN 4.2 g/dl (3.3-4.9); ALBUMIN/GLOBULIN RATIO 1.27; BILIRUBIN,INDIRECT 0.8 mg/dl (0-1.1); BILIRUBIN,TOTAL 0.8 mg/dl (0.2-1.3); CALCIUM 10.2 mg/dl (8.4-10.2); CREATININE 0.86 mg/dl (0.61-1.24); POTASSIUM 4.2 mmol/L (3.5-5.1); TOTAL PROTEIN 7.5 g/dl (6.1-8.1)
--- NOTE | 2017-05-06 09:05 | HP ---
Date/Time of Note Date/Time of Note DATE: 05/06/17 TIME: 09:01 Assessment/Plan VTE Prophylaxis VTE Prophylaxis Intervention: SCD's Lines/Catheters IV Catheter Type (from Nrsg): Saline Lock Assessment/Plan Assessment/Plan 1. Recurrent spontaneous pneumothorax, status post placement of a chest tube -Continue chest tube -Oxygen -Pain management -Pulmonary and CT surgery consult HPI/ROS Admit Date/Time Admit Date/Time May 05, 2017 at 21:12 Hx of Present Illness Patient is a 21-year-old male who was recently diagnosed as spontaneous pneumothorax in the treated with placement of a chest tube here at [facility] presented with shortness of breath and chest/back pain. Chest x-ray showed Large right-sided pneumothorax. Patient was just discharged from here earlier this month. At that time he declined VATS procedure. Currently chest tube is been placed in the ER and overall he is feeling well. He is willing to undergo VATS procedure this time around. PMH/Family/Social Past Surgical History Past Surgical Hx: no surgical history Social History Smoking Status: Never smoker Exam/Review of Systems Vital Signs Vitals Vital Signs Date Time Temp Pulse Resp B/P Pulse Ox O2 Delivery O2 Flow Rate FiO2 05/06/17 08:30 97.8 71 17 104/58 100 05/05/17 21:59 Room Air Nasal Cannula 05/05/17 18:40 2.0 Intake and Output 05/05/17 05/05/17 05/06/17 15:00 23:00 07:00 Intake Total 300 ml Output Total 510 ml Balance -210 ml Exam Constitutional: alert, oriented, well developed Head: atraumatic, normocephalic Eyes: EOMI, PERRL Respiratory: diminished breath sounds Cardiovascular: nl pulses, regular rate and rhythm Gastrointestinal: non-tender, soft Musculoskeletal: other (There is a right-sided chest tube in place) Labs Result Diagram: 05/06/17 0641 05/06/17 0641 Medications Medications Current Medications Morphine Sulfate (morphine) 3 mg Q4H PRN IV PAIN LEVEL 8-10 Last administered on 05/06/17t 02:31; Admin Dose 3 MG; Start 05/05/17 at 23:30 ANGEL FERNANDEZ MD May 06, 2017 09:05
[2017-05-06] MEDS: LEVOFLOXACIN 500MG/D5W (PMX) 100 ML IVPB SCH (09:41)
[2017-05-06] MEDS ORDERED: LORAZEPAM 1 MG TAB PO PRN (11:30)
--- NOTE | 2017-05-06 11:52 | RADRPT ---
PROCEDURE: XR Chest PA and Lateral CLINICAL INDICATION: Pneumothorax TECHNIQUE: PA and Lateral views of the chest were obtained. COMPARISON: 05/05/2017 FINDINGS: The right-sided thoracostomy tube and the cyst pigtail drainage catheter are stable in positioning w ith the tips projecting to the right upper lung zone. Cardiovascular: The cardiovascular silhouette appears unremarkable. Lung Dyer: Discoid atelectasis is again seen at the right lung base. Pleural Spaces: There has been a significant increase to the right pneumothorax which demonstrates a slight tension component is the mediastinum is shifted leftward. Presently there is approximately 3 .4 cm gap between the lateral pleura and the lateral chest wall. Osseous Structures: The osseous structures appear intact. Soft Tissues: The soft tissues appear unremarkable. IMPRESSION: 1. Although the right thoracostomy tube an pigtail drainage catheter remain in place there has been an interval significant increase to the now large right pneumothorax with a slight tension componen t. 2. Discoid atelectasis is again seen at the right lung base. Findings of worsening right pneumothorax were telephoned by Enrique Omalley MD to Dr. Queen on 017 and 1137 hours. Physician Noemí Date Time Electronically viewed and signed by Physician Noemí on 05/06/2017 11:52 /
[2017-05-06] MEDS: HYDROmorphONE 1 MG/ML SYG IV PRN ×2 (13:39→22:11)
--- NOTE | 2017-05-06 14:02 | CONS ---
DATE OF ADMISSION: 05/05/2017 DATE OF CONSULTATION: TYPE OF CONSULTATION: Pulmonary. REASON FOR CONSULT: Shortness of breath. Thank you, for this consultation. HISTORY OF PRESENT ILLNESS: This is a pleasant 21-year-old gentleman who had previously presented w ith prolonged stay for spontaneous pneumothorax eventually had a chest drain with Heimlich valve janel sunny and was discharged. The patient represented with sudden onset shortness of breath and pleuritic pain. Yesterday found on admission to have likely tension pneumothorax. Chest tube was placed wit h reexpansion. This morning's repeat x-ray shows slight worsening pneumothorax. The patient, [facility], remains awake, alert, oriented, comfortable, talking in full and complete sentences. Chest tube demonstrates air leak. Of note, the patient had a CT prior to this admission which showed possibl e bullous disease in the apex. PAST MEDICAL HISTORY: As above. MEDICATIONS: Per chart. ALLERGIES: NONE. SOCIAL HISTORY: Nonsmoker, no alcohol, no history of drug use. FAMILY HISTORY: Noncontributory. SYSTEMS REVIEW: A 12-point review of systems was negative other than that mentioned above. PHYSICAL EXAMINATION: GENERAL: Young gentleman, comfortable at rest, no acute distress. VITAL SIGNS: Currently afebrile, pulse is 84, blood pressure 114/77, O2 saturation 96% on room air. NECK: Supple. No JVD or lymphadenopathy. CARDIAC: S1, S2, no added sounds or murmurs. CHEST: Diminished air entry right lung. ABDOMEN: Soft, nontender. No guarding or rebound. EXTREMITIES: No cyanosis, clubbing, edema. NEUROLOGIC: Grossly intact. LABORATORY DATA: White count 15, hemoglobin 13.8, platelets of 220. Chemistry within normal limits . IMPRESSION AND PLAN: 1. 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 Continue current chest tube to suction and discuss case with thoracic surgery. PLAN: Hopefully patient to be scheduled for surgery tomorrow for repair. The patient agrees to pro ceed with surgery as previously discussed. Dictated By: ANABEL BECKER MD SV/PRASANNA Conf#: [id number] DID#: [id number] CC: ANABEL BCEKER MD;*EndCC*
--- NOTE | 2017-05-06 14:49 | CONS ---
DATE OF ADMISSION: 05/05/2017 DATE OF CONSULTATION: REASON FOR CONSULTATION: Right pneumothorax. HISTORY OF PRESENT ILLNESS: This is a patient known to me, a 21-year-old male with a history of spo ntaneous pneumothorax admitted 2 weeks ago. He had a chest tube placed. At that time, the patient left with a Heimlich valve. However, is now being admitted because of a complete collapse and becau se of the large pneumothorax. Another chest tube has been placed with partial resolution of the pne umothorax. The patient is feeling better, no shortness of breath, minimal chest pain. His latest chest x-ray from this morning at 8:00 has shown an increase in the right-sided pneumothor ax, but the patient again is comfortable. The patient did have a CT of the chest back on 03/20/2017 , which showed 10% pneumothorax that at that time. PHYSICAL EXAMINATION: VITAL SIGNS: Blood pressure is 114/77, pulse is 84, respirations 17, saturation is 99%. CARDIOVASCULAR: Normal S1, S2. No murmurs, gallops or rubs. LUNGS: Clear. ABDOMEN: Soft. EXTREMITIES: Warm. IMPRESSION: Pneumothorax, not resolved with a chest tube. RECOMMENDATIONS: We will proceed with video-assisted thoracic surgery and lung resection. Risks, b enefits, complications, alternative therapies explained to the patient. All questions answered. Dictated By: HARRY EDGE MD FM/PRASANNA Conf#: [id number] DID#: [id number] CC: ANGEL FERNANDEZ MD;*EndCC*
[2017-05-07] VITALS (18 sets, daily range): BP systolic 94–154; BP diastolic 56–91; PULSE 53–123; RESP 8–19
[2017-05-07] MEDS: morphine 4 MG/ML VIAL IV PRN (02:23)
[2017-05-07 08:47] LABS: BASOPHILS % 0.3 % (0.0-2.0); EOSINOPHILS # 0.2 10^3/ul (0.0-0.5); EOSINOPHILS % 2.5 % (0.0-7.0); HEMATOCRIT 41.5 % (42.0-52.0); HEMOGLOBIN 14.4 g/dl (14.0-18.0); LYMPHOCYTES # 2.1 10^3/ul (0.8-2.9); MEAN CORPUSCULAR HEMOGLOBIN 31.5 pg (29.0-33.0); MEAN CORPUSCULAR HGB CONC 34.7 g/dl (32.0-37.0); MEAN CORPUSCULAR VOLUME 90.8 fl (82.0-101.0); MEAN PLATELET VOLUME 9.6 fl (7.4-10.4); MONOCYTE # 0.6 10^3/ul (0.3-0.9); NEUTROPHIL # 3.9 10^3/ul (1.6-7.5); NEUTROPHILS % 56.9 % (39.0-77.0); PLATELET COUNT 202 10^3/UL (140-415); RED BLOOD COUNT 4.57 10^6/ul (4.70-6.10); RED CELL DISTRIBUTION WIDTH 12.3 % (11.5-14.5); WHITE BLOOD COUNT 6.8 10^3/ul (4.8-10.8)
--- NOTE | 2017-05-07 09:11 | RADRPT ---
PROCEDURE: XR Chest. CLINICAL INDICATION: Pneumothorax TECHNIQUE: A single AP view of the chest was obtained. COMPARISON: Chest x-ray dated 05/06/2017 FINDINGS: There is a right pleural pigtail catheter and right chest tube in place. The lung apices are incompletely imaged. There is a small right pneumothorax. No focal airspace opac ification, pleural effusion or pneumothorax is seen. The cardiomediastinal silhouette is within nor mal limits for size. The osseous structures are unremarkable. IMPRESSION: 1. Small right pneumothorax, improved when compared to the prior examination. 2. Tubes and lines, as described above. RPTAT: HH .Vikki Durant MD, MD Date Time Electronically viewed and signed by .Vikki Durant MD, on 05/07/2017 09:11 .G/
[2017-05-07 09:22] LABS: CALCIUM 9.9 mg/dl (8.4-10.2); CREATININE 0.89 mg/dl (0.61-1.24); MAGNESIUM 1.8 mg/dl (1.7-2.5); PHOSPHORUS 4.1 mg/dl (2.5-4.9); POTASSIUM 4.3 mmol/L (3.5-5.1)
--- NOTE | 2017-05-07 09:57 | PN ---
Date/Time of Note Date/Time of Note DATE: 05/07/17 TIME: 09:57 Assessment/Plan VTE Prophylaxis VTE Prophylaxis Intervention: SCD's Lines/Catheters IV Catheter Type (from Nrs): Saline Lock Assessment/Plan Assessment/Plan 1. Recurrent spontaneous pneumothorax, status post placement of a chest tube - Pulmonology on board and recommendations appreciated - CT surgery on board and consultation appreciated. Plans for VATS and pleurodesis today - Oxygen as needed - Pain management 2. Disposition - Awaiting VATS and pleurodesis Subjective 24 Hr Interval Summary Free Text/Dictation Patient resting comfortably and in no acute distress. Denies any respiratory issues. No overnight events. Plans for VATS and pleurodesis Exam/Review of Systems Vital Signs Vitals Vital Signs Date Time Temp Pulse Resp B/P Pulse Ox O2 Delivery O2 Flow Rate FiO2 05/07/17 08:41 53 05/07/17 07:47 98.4 16 94/61 100 05/05/17 21:59 Room Air Nasal Cannula 05/05/17 18:40 2.0 Intake and Output 05/06/17 05/06/17 05/07/17 15:00 23:00 07:00 Intake Total 700 ml 500 ml Output Total 20 ml Balance 700 ml 480 ml Exam General: NAD, awake and alert HEENT: NC/AT, PERRL CVS: S1, S2, RRR, no murmurs Lungs: Diminished breath sounds right lung. chest tube in place and site CDI Abd: soft, NT, ND, +BS. no rebound or guarding. Ext: moving all extremities. no cyanosis, edema, clubbing Results Result Diagram: 05/07/17 0750 05/07/17 0750 Results 24 hrs Laboratory Tests Test 05/07/17 07:50 White Blood Count 6.8 # Red Blood Count 4.57 L Hemoglobin 14.4 Hematocrit 41.5 L Mean Corpuscular Volume 90.8 Mean Corpuscular Hemoglobin 31.5 Mean Corpuscular Hemoglobin Concent 34.7 Red Cell Distribution Width 12.3 Platelet Count 202 Mean Platelet Volume 9.6 Neutrophils % 56.9 Lymphocytes % 31.0 Monocytes % 9.0 Eosinophils % 2.5 Basophils % 0.3 Nucleated Red Blood Cells % 0.0 Neutrophils # 3.9 Lymphocytes # 2.1 Monocytes # 0.6 Eosinophils # 0.2 Basophils # 0.0 Nucleated Red Blood Cells # 0.0 Sodium Level 140 Potassium Level 4.3 Chloride Level 96 L Carbon Dioxide Level 32 H Anion Gap 16 Blood Urea Nitrogen 12 Creatinine 0.89 Glucose Level 94 Calcium Level 9.9 Phosphorus Level 4.1 Magnesium Level 1.8 Medications Medications Current Medications Morphine Sulfate 3 mg 3 mg Q4H PRN IV PAIN LEVEL 8-10 Last administered on 02:23; Admin Dose 3 MG; Start 05/05/17 at 23:30 Levofloxacin/ Dextrose (Levaquin 500mg/ D5W 100 ml (Pmx)) 100 ml @ 100 mls/hr Q24H IVPB Last administered on 05/06/17 09:41; Admin Dose 100 MLS/HR; Start 05/06/17 at 10:00 Hydromorphone HCl (Dilaudid) 0.5 mg Q2H PRN IV pain Last administered on 22:11; Admin Dose 0.5 MG; Start 05/06/17 at 11:30 Lorazepam (Ativan) 1 mg Q8H PRN PO ANXIETY; Start 05/06/17 at 11:30 ELIZABETH TRIVEDI MD May 07, 2017 09:57
[2017-05-07] MEDS: LEVOFLOXACIN 500MG/D5W (PMX) 100 ML IVPB SCH (10:26)
[2017-05-07] MEDS: HYDROmorphONE 1 MG/ML SYG IV PRN ×2 (10:35→15:38)
--- NOTE | 2017-05-07 11:03 | CONS ---
Date/Time of Note Date/Time of Note DATE: 05/07/17 TIME: 11:02 Consult Date/Type/Reason Admit Date/Time May 05, 2017 at 21:12 Initial Consult Date Type of Consultation: Pulmonary Subjective Patient comfortable. No new events. Continues chest tube to suction. Objective Vital Signs Date Time Temp Pulse Resp B/P Pulse Ox O2 Delivery O2 Flow Rate FiO2 05/07/17 08:41 53 05/07/17 07:47 98.4 16 94/61 100 05/05/17 21:59 Room Air Nasal Cannula 05/05/17 18:40 2.0 Intake and Output 05/06/17 05/06/17 05/07/17 15:00 23:00 07:00 Intake Total 700 ml 500 ml Output Total 20 ml Balance 700 ml 480 ml Exam GENERAL: Well-nourished well-developed young gentleman appears comfortable at rest. VITAL SIGNS: per chart NECK: Supple. No JVD or lymphadenopathy. CARDIAC EXAM: S1, S2. No added sounds or murmurs. CHEST: Diminished air entry bilaterally with rales right base. ABDOMEN: Soft, nontender. No guarding or rebound. EXTREMITIES: No cyanosis, clubbing or edema. NEUROLOGIC: Generalized weakness. No focal deficits. Results/Medications Result Diagram: 05/07/17 0750 05/07/17 0750 Results 24 hrs Laboratory Tests Test 05/07/17 07:50 White Blood Count 6.8 # Red Blood Count 4.57 L Hemoglobin 14.4 Hematocrit 41.5 L Mean Corpuscular Volume 90.8 Mean Corpuscular Hemoglobin 31.5 Mean Corpuscular Hemoglobin Concent 34.7 Red Cell Distribution Width 12.3 Platelet Count 202 Mean Platelet Volume 9.6 Neutrophils % 56.9 Lymphocytes % 31.0 Monocytes % 9.0 Eosinophils % 2.5 Basophils % 0.3 Nucleated Red Blood Cells % 0.0 Neutrophils # 3.9 Lymphocytes # 2.1 Monocytes # 0.6 Eosinophils # 0.2 Basophils # 0.0 Nucleated Red Blood Cells # 0.0 Sodium Level 140 Potassium Level 4.3 Chloride Level 96 L Carbon Dioxide Level 32 H Anion Gap 16 Blood Urea Nitrogen 12 Creatinine 0.89 Glucose Level 94 Calcium Level 9.9 Phosphorus Level 4.1 Magnesium Level 1.8 Medications Current Medications Morphine Sulfate 3 mg 3 mg Q4H PRN IV PAIN LEVEL 8-10 Last administered on 02:23; Admin Dose 3 MG; Start 05/05/17 at 23:30 Levofloxacin/ Dextrose (Levaquin 500mg/ D5W 100 ml (Pmx)) 100 ml @ 100 mls/hr Q24H IVPB Last administered on 05/07/17 10:26; Admin Dose 100 MLS/HR; Start 05/06/17 at 10:00 Hydromorphone HCl (Dilaudid) 0.5 mg Q2H PRN IV pain Last administered on 10:35; Admin Dose 0.5 MG; Start 05/06/17 at 11:30 Lorazepam (Ativan) 1 mg Q8H PRN PO ANXIETY; Start 05/06/17 at 11:30 Assessment/Plan Chief Complaint/Hosp Course Assessment 1. Spontaneous pneumothorax with likely bronchopleural fistula Plan 1. Continue chest tube suction 2. VATS resection and pleurodesis Problems: ANABEL BECKER MD, [facility] May 07, 2017 11:03
[2017-05-07 17:32] LABS: PROTIME 13.2 Sec (12.2-14.2)
[2017-05-07 17:33] LABS: PARTIAL THROMBOPLASTIN TIME 24.1 Sec (25.0-35.0)
[2017-05-07] MEDS ORDERED: MINERAL OIL LIGHT 10 ML VIAL ONE (17:55)
[2017-05-07] MEDS ORDERED: hydrALAzine 20 MG INJ IV PRN (18:00)
[2017-05-07] MEDS ORDERED: HYDROmorphONE (0.2 MG/ML) 10ML SYG IV PRN ×3 (18:00)
[2017-05-07] MEDS ORDERED: OXYCODONE/ACETAMINOPHEN (5/325) TAB PO PRN ×2 (18:00)
[2017-05-07] MEDS ORDERED: TRIMETHOBENZAMIDE 100 MG/ML VIAL IM PRN ×3 (18:00→20:30)
[2017-05-07] MEDS ORDERED: IPRATROPIUM (NEB) 0.5 MG/2.5 ML AMP HHN PRN (18:00)
[2017-05-07] MEDS ORDERED: DIPHENHYDRAMINE 50 MG INJ IV PRN ×2 (18:00→20:30)
[2017-05-07] MEDS ORDERED: ONDANSETRON 4 MG INJ IV PRN ×3 (18:00→20:30)
[2017-05-07] MEDS ORDERED: LABETALOL HCL 20MG INJ IV PRN (18:00)
[2017-05-07] MEDS ORDERED: EPHEDrine SULFATE 50 MG/5 ML SYG IV PRN ×2 (18:00→20:30)
[2017-05-07] MEDS ORDERED: ALBUTEROL 0.083% (NEB) 2.5 MG/3 ML AMP HHN PRN (18:00)
[2017-05-07] MEDS ORDERED: MIDAZOLAM 1 MG/ML 2 ML INJ IV PRN ×2 (18:00→20:30)
[2017-05-07] MEDS ORDERED: FENTAnyl 50 MCG/ML VIAL IV PRN ×6 (18:00→20:30)
[2017-05-07] MEDS ORDERED: MEPERIDINE 25 MG INJ IV PRN (18:00)
[2017-05-07] MEDS ORDERED: BUPIVACAINE 0.5% (SDV) 30 ML INJ ONE (18:10)
[2017-05-07] MEDS ORDERED: LIDOCAINE 1%/EPI 30 ML INJ ONE ×2 (18:10→18:11)
[2017-05-07] MEDS ORDERED: CEFAZOLIN 1 GM INJ ONE (18:17)
[2017-05-07] MEDS ORDERED: PROPOFOL 20 ML ONE (18:17)
[2017-05-07] MEDS ORDERED: ROCURONIUM 50 MG INJ ONE (18:17)
[2017-05-07] MEDS ORDERED: NEOSTIGMINE 3 MG/3 ML SYRINGE ONE (18:17)
[2017-05-07] MEDS ORDERED: GLYCOPYRROLATE 0.4 MG INJ ONE (18:17)
[2017-05-07] MEDS ORDERED: ONDANSETRON 4 MG INJ ONE (18:20)
[2017-05-07] MEDS ORDERED: MIDAZOLAM 1 MG/ML 2 ML INJ ONE (18:20)
[2017-05-07] MEDS ORDERED: DEXAMETHASONE 4 MG/ML 1 ML INJ ONE (18:20)
[2017-05-07] MEDS ORDERED: FENTAnyl 50 MCG/ML VIAL ONE (18:20)
[2017-05-07] MEDS ORDERED: morphine SULFATE/PF (10 MG/10 ML) INJ ONE (18:22)
[2017-05-07] MEDS ORDERED: FAMOTIDINE 20 MG INJ ONE (19:13)
[2017-05-07] MEDS ORDERED: KETOROLAC 30 MG INJ IV PRN (20:30)
[2017-05-07] MEDS ORDERED: ZOLPIDEM 5 MG TAB PO PRN (20:30)
[2017-05-07] MEDS ORDERED: NALBUPHINE HCL (10 MG/1 ML) INJ IV PRN (20:30)
[2017-05-07] MEDS ORDERED: NALOXONE (0.4 MG/ML) INJ IV PRN (20:30)
[2017-05-07] MEDS ORDERED: HYDROmorphONE 1 MG/ML SYG IV PRN (20:30)
[2017-05-07] MEDS ORDERED: morphine 4 MG/ML VIAL IV PRN (20:30)
[2017-05-07] MEDS ORDERED: HYDROmorphONE 0.5 MG/0.5 ML SYG IV PRN ×2 (20:30)
--- NOTE | 2017-05-07 20:32 | OPR ---
Date/Time of Note Date/Time of Note DATE: 05/07/17 TIME: 20:26 Operative Report Procedure Date: May 07, 2017 Preoperative Diagnosis Right bronchopulmonary fistula Postoperative Diagnosis Same Operation/Procedure Performed 1 Right video-assisted thoracic surgery 2 lysis of adhesions/decortication 3 pulmonary resection 4 coloscopy Surgeon see signature line Chief Development Officer None Anesthesia Type: general Estimated Blood Loss: minimal Transfusion none Specimen Right upper lobe Grafts/Implants none Tubes/Drains Chest tube Complications none Pt Condition Post Procedure: stable Disposition: PACU Procedure Description Patient was taken to the operating room prepped and draped in usual sterile fashion this is a 20-year-old male with a history of spontaneous pneumothorax that was treated conservatively with a chest tube however the patient recovered his pneumothorax and came back to the emergency room complaining of chest pain shortness of breath response comp occasions alternative therapeutic intubation in the family and consent obtained obtained Patient was intubated bronchoscopy was done no evidence of any bronchial lesions were noted Patient was placed in left lateral decubitus position prepped and draped in usual sterile fashion timeout was called antibiotics was given I made a 1 cm incision seventh intercostal space mid mid axillary line incision was taken down to subcutaneous tissue 12 mm trocar was advanced into the pleural cavity A second 12 mm trocar was advanced in the mid clavicular line fifth intercostal A 5 mm trocar was advanced in the tip of the scapula into the pleural Adhesions were noted which were taken down using electrocautery The lung was D/decorticated adhesions were taken An abnormal area in the apex of the lung was noted to have blebs this was then resected using application of the stapler echelon times Evidence of any bleeding was noted Was placed under water no evidence of any bubbles were noted 32 Tristanian chest tube was placed into the trocar cavity brought out through a lower stab wound secured to skin using silk suture The other incisions were closed using 0 Vicryl suture for the deep and 2-0 Vicryl suture for subcu Patient had very minimal air leak at the conclusion of the operation only with expiration on ventilation tolerated procedure well stable to the recovery HARRY EDGE MD May 07, 2017 20:32
[2017-05-07] MEDS ORDERED: SUGAMMADEX SODIUM 200 MG/2 ML VIAL IV ONE (20:37)
[2017-05-08] VITALS (26 sets, daily range): BP systolic 92–143; BP diastolic 46–98; PULSE 58–125; RESP 3–21
[2017-05-08] MEDS: HYDROmorphONE 1 MG/ML SYG IV PRN ×3 (00:26→22:08)
[2017-05-08] MEDS: morphine 2 MG INJ IV PRN ×4 (04:44→17:24)
[2017-05-08 05:26] LABS: ABNORMAL IP MESSAGE 1; BASOPHILS % 0.1 % (0.0-2.0); HEMOGLOBIN 12.6 g/dl (14.0-18.0); LYMPHOCYTES # 0.2 10^3/ul (0.8-2.9); LYMPHOCYTES % 1.7 % (15.0-51.0); MEAN CORPUSCULAR HEMOGLOBIN 31.8 pg (29.0-33.0); MEAN CORPUSCULAR VOLUME 90.9 fl (82.0-101.0); MEAN PLATELET VOLUME 9.9 fl (7.4-10.4); MONOCYTE # 0.1 10^3/ul (0.3-0.9); MONOCYTES % 1.3 % (0.0-11.0); NEUTROPHIL # 9.4 10^3/ul (1.6-7.5); NEUTROPHILS % 96.6 % (39.0-77.0); PLATELET COUNT 180 10^3/UL (140-415); POSITIVE DIFF @See below; RED BLOOD COUNT 3.96 10^6/ul (4.70-6.10); RED CELL DISTRIBUTION WIDTH 11.8 % (11.5-14.5); WHITE BLOOD COUNT 9.8 10^3/ul (4.8-10.8)
[2017-05-08 05:46] LABS: CALCIUM 9.2 mg/dl (8.4-10.2); CREATININE 0.67 mg/dl (0.61-1.24); POTASSIUM 4.3 mmol/L (3.5-5.1)
[2017-05-08] MEDS: DIPHENHYDRAMINE 50 MG INJ IV PRN ×2 (07:54→14:02)
--- NOTE | 2017-05-08 08:51 | PN ---
Date/Time of Note Date/Time of Note DATE: 05/08/17 TIME: 08:51 Assessment/Plan VTE Prophylaxis VTE Prophylaxis Intervention: SCD's Lines/Catheters IV Catheter Type (from Nrsg): Saline Lock Assessment/Plan Assessment/Plan 1. Recurrent spontaneous pneumothorax, s/p VATS on 05/07 - Patient feeling significantly better after surgery. Chest tube in place with no issues - Pulmonology on board and recommendations appreciated - CT surgery on board and consultation appreciated. underwent VATS with decortications and removal of adhesions and apical blebs - Pain management 2. Disposition - okay to transfer to Telemetry. - Chest tube management per CT surgery Subjective 24 Hr Interval Summary Free Text/Dictation Patient doing well and states feeling significantly better since surgery. No acute overnight events and no new complaints. Exam/Review of Systems Vital Signs Vitals Vital Signs Date Time Temp Pulse Resp B/P Pulse Ox O2 Delivery O2 Flow Rate FiO2 05/08/17 06:00 69 8 92/53 98 Room Air 05/08/17 04:00 97.5 05/05/17 18:40 2.0 Intake and Output 05/07/17 05/07/17 05/08/17 15:00 23:00 07:00 Intake Total 100 ml 2500 ml 480 ml Output Total 525 ml 1025 ml Balance 100 ml 1975 ml -545 ml Exam General: NAD, awake and alert HEENT: NC/AT, PERRL. neck supple and midline. CVS: S1, S2, RRR, no murmurs Lungs: improved breath sounds on right lung. no wheezing or rhonchi. chest tube in place and site CDI Abd: soft, NT, ND, +BS. no rebound or guarding. Ext: moving all extremities. no cyanosis, edema, clubbing Results Result Diagram: 05/08/17 0400 05/08/17 0400 Results 24 hrs Laboratory Tests Test 05/07/17 17:07 05/08/17 04:00 Prothrombin Time 13.2 Prothrombin Time Ratio 1.0 INR International Normalized Ratio 1.00 Activated Partial Thromboplast Time 24.1 L White Blood Count 9.8 # Red Blood Count 3.96 L Hemoglobin 12.6 L Hematocrit 36.0 L Mean Corpuscular Volume 90.9 Mean Corpuscular Hemoglobin 31.8 Mean Corpuscular Hemoglobin Concent 35.0 Red Cell Distribution Width 11.8 Platelet Count 180 Mean Platelet Volume 9.9 Neutrophils % 96.6 H Lymphocytes % 1.7 L Monocytes % 1.3 Eosinophils % 0.0 Basophils % 0.1 Nucleated Red Blood Cells % 0.0 Neutrophils # 9.4 H Lymphocytes # 0.2 L Monocytes # 0.1 L Eosinophils # 0.0 Basophils # 0.0 Nucleated Red Blood Cells # 0.0 Sodium Level 137 Potassium Level 4.3 Chloride Level 98 Carbon Dioxide Level 28 Anion Gap 15 Blood Urea Nitrogen 10 Creatinine 0.67 Glucose Level 140 # Calcium Level 9.2 Medications Medications Current Medications Morphine Sulfate 3 mg 3 mg Q4H PRN IV PAIN LEVEL 8-10 Last administered on 02:23; Admin Dose 3 MG; Start 05/05/17 at 23:30 Levofloxacin/ Dextrose (Levaquin 500mg/ D5W 100 ml (Pmx)) 100 ml @ 100 mls/hr Q24H IVPB Last administered on 05/07/17 10:26; Admin Dose 100 MLS/HR; Start 05/06/17 at 10:00 Hydromorphone HCl (Dilaudid) 0.5 mg Q2H PRN IV pain Last administered on 00:26; Admin Dose 0.5 MG; Start 05/06/17 at 11:30 Lorazepam (Ativan) 1 mg Q8H PRN PO ANXIETY; Start 05/06/17 at 11:30 Morphine Sulfate (morphine) 2 mg Q2H PRN IV PAIN LEVEL 1-5 Last administered on 05/08/17 07:44; Admin Dose 2 MG; Start 05/07/17 at 20:30; Stop 05/08/17 at 18:46 Morphine Sulfate (morphine) 4 mg Q2H PRN IV PAIN LEVEL 6-10; Start 05/07/17 at 20:30; Stop 05/08/17 at 18:46 Ketorolac Tromethamine (Toradol) 30 mg Q6H PRN IV PAIN LEVEL 6-10; Start 05/07 at 20:30; Stop 05/08/17 at 18:46 Diphenhydramine HCl (Benadryl) 25 mg Q4H PRN IV PRURITUS Last administered on 05/08/17 07:54; Admin Dose 25 MG; Start 05/07/17 at 20:30; Stop 05/08/17 at 18:46 Nalbuphine HCl (Nubain) 10 mg Q4H PRN IV PRURITUS; Start 05/07/17 at 20:30; Stop 05/08/17 at 18:46 Ondansetron HCl (Zofran Inj) 4 mg Q6H PRN IV NAUSEA AND/OR VOMITING; Start at 20:30; Stop 05/08/17 at 18:46 Trimethobenzamide HCl (Tigan) 200 mg Q6H PRN IM NAUSEA AND/OR VOMITING; Start 05/07/17 at 20:30; Stop 05/08/17 at 18:46 Naloxone HCl (Narcan) 0.2 mg Q2M PRN IV FOR RESP RATE 8 OR LESS; Start at 20:30; Stop 05/08/17 at 18:46 ELIZABETH TRIVEDI MD May 08, 2017 08:51
--- NOTE | 2017-05-08 09:36 | RADRPT ---
PROCEDURE: Chest x-ray CLINICAL INDICATION: Chest tube TECHNIQUE: Chest single view COMPARISON: 05/07/2017 FINDINGS: There is interval removal of right chest pigtail catheter. As before large caliber right chest tube remains in place. There is a very tiny residual right pneumothorax which is stable and unchanged. Veronique ngs otherwise clear. Heart is normal in size. Pulmonary vessels normal in caliber. Costophrenic angl es are sharp. IMPRESSION: 1. Interval removal of right chest pigtail catheter. 2. Large caliber right chest tube remains in place. 3. Stable tiny right apical pneumothorax. 4. Lungs clear RPTAT: HH .Cole Davila MD, MD Date Time Electronically viewed and signed by .Cole Davila MD, on 05/08/2017 09:35 .W/
[2017-05-08] MEDS: LEVOFLOXACIN 500MG/D5W (PMX) 100 ML IVPB SCH (10:04)
--- NOTE | 2017-05-08 10:17 | CONS ---
Date/Time of Note Date/Time of Note DATE: 05/08/17 TIME: 10:16 Assessment/Plan Assessment/Plan Additional Assessment/Plan Chest x-ray was reviewed from today which is totally clear. Right-sided chest tube is in place. Assessment and recommendations; 1. Patient admitted with spontaneous recurrent right pneumothorax status post VATS procedure yesterday. Patient doing very well overall. Continue current supportive care. Consultation Date/Type/Reason Admit Date/Time May 05, 2017 at 21:12 Initial Consult Date Type of Consultation: Pulmonary 24 HR Interval Summary Free Text/Dictation Patient's condition is stable. Denies any chest pain, shortness of breath, coughing or wheezing. Any fever or chills. General exam; young male, awake alert, currently in no distress. Exam/Review of Systems Vital Signs Vitals Vital Signs Date Time Temp Pulse Resp B/P Pulse Ox O2 Delivery O2 Flow Rate FiO2 05/08/17 06:00 69 8 92/53 98 Room Air 05/08/17 04:00 97.5 05/05/17 18:40 2.0 Intake and Output 05/07/17 05/07/17 05/08/17 15:00 23:00 07:00 Intake Total 100 ml 2500 ml 480 ml Output Total 525 ml 1025 ml Balance 100 ml 1975 ml -545 ml Exam HEENT exam; supple neck, no JVD. No lymphadenopathy. Midline trachea. No thyromegaly. Patient has good dentition. Chest exam; clear to auscultation. S1-S2 audible, no murmurs. Regular rhythm. Right-sided chest tube in place. Abdomen exam; soft, nondistended. No organomegaly. Bowel sounds audible. Extremity exam; no edema. CORPORATE SCHEDULER exam; no focal deficit. Results Result Diagram: 05/08/17 0400 05/08/17 0400 Results 24 hrs Laboratory Tests Test 05/07/17 17:07 05/08/17 04:00 Prothrombin Time 13.2 Prothrombin Time Ratio 1.0 INR International Normalized Ratio 1.00 Activated Partial Thromboplast Time 24.1 L White Blood Count 9.8 # Red Blood Count 3.96 L Hemoglobin 12.6 L Hematocrit 36.0 L Mean Corpuscular Volume 90.9 Mean Corpuscular Hemoglobin 31.8 Mean Corpuscular Hemoglobin Concent 35.0 Red Cell Distribution Width 11.8 Platelet Count 180 Mean Platelet Volume 9.9 Neutrophils % 96.6 H Lymphocytes % 1.7 L Monocytes % 1.3 Eosinophils % 0.0 Basophils % 0.1 Nucleated Red Blood Cells % 0.0 Neutrophils # 9.4 H Lymphocytes # 0.2 L Monocytes # 0.1 L Eosinophils # 0.0 Basophils # 0.0 Nucleated Red Blood Cells # 0.0 Sodium Level 137 Potassium Level 4.3 Chloride Level 98 Carbon Dioxide Level 28 Anion Gap 15 Blood Urea Nitrogen 10 Creatinine 0.67 Glucose Level 140 # Calcium Level 9.2 Medications Medications Current Medications Morphine Sulfate 3 mg 3 mg Q4H PRN IV PAIN LEVEL 8-10 Last administered on 02:23; Admin Dose 3 MG; Start 05/05/17 at 23:30 Levofloxacin/ Dextrose (Levaquin 500mg/ D5W 100 ml (Pmx)) 100 ml @ 100 mls/hr Q24H IVPB Last administered on 05/08/17 10:04; Admin Dose 100 MLS/HR; Start 05/06/17 at 10:00 Hydromorphone HCl (Dilaudid) 0.5 mg Q2H PRN IV pain Last administered on 00:26; Admin Dose 0.5 MG; Start 05/06/17 at 11:30 Lorazepam (Ativan) 1 mg Q8H PRN PO ANXIETY; Start 05/06/17 at 11:30 Morphine Sulfate (morphine) 2 mg Q2H PRN IV PAIN LEVEL 1-5 Last administered on 05/08/17 07:44; Admin Dose 2 MG; Start 05/07/17 at 20:30; Stop 05/08/17 at 18:46 Morphine Sulfate (morphine) 4 mg Q2H PRN IV PAIN LEVEL 6-10; Start 05/07/17 at 20:30; Stop 05/08/17 at 18:46 Ketorolac Tromethamine (Toradol) 30 mg Q6H PRN IV PAIN LEVEL 6-10; Start 05/07 at 20:30; Stop 05/08/17 at 18:46 Diphenhydramine HCl (Benadryl) 25 mg Q4H PRN IV PRURITUS Last administered on 05/08/17 07:54; Admin Dose 25 MG; Start 05/07/17 at 20:30; Stop 05/08/17 at 18:46 Nalbuphine HCl (Nubain) 10 mg Q4H PRN IV PRURITUS; Start 05/07/17 at 20:30; Stop 05/08/17 at 18:46 Ondansetron HCl (Zofran Inj) 4 mg Q6H PRN IV NAUSEA AND/OR VOMITING; Start at 20:30; Stop 05/08/17 at 18:46 Trimethobenzamide HCl (Tigan) 200 mg Q6H PRN IM NAUSEA AND/OR VOMITING; Start 05/07/17 at 20:30; Stop 05/08/17 at 18:46 Naloxone HCl (Narcan) 0.2 mg Q2M PRN IV FOR RESP RATE 8 OR LESS; Start at 20:30; Stop 05/08/17 at 18:46 LUISITO FRANCO May 08, 2017 10:17
--- NOTE | 2017-05-08 19:33 | PN ---
Date/Time of Note Date/Time of Note DATE: 05/08/17 TIME: 19:32 Assessment/Plan Lines/Catheters IV Catheter Type (from Nrsg): Peripheral IV Assessment/Plan Chief Complaint/Hosp Course SP VATS Tiny PTX will continue Ct Sxn Problems: Subjective 24 Hr Interval Summary Constitutional: improved Pain Control: mild Exam/Review of Systems Vital Signs Vitals Vital Signs Date Time Temp Pulse Resp B/P Pulse Ox O2 Delivery O2 Flow Rate FiO2 05/08/17 18:00 86 19 117/98 100 Room Air 05/08/17 16:00 98.2 05/05/17 18:40 2.0 Intake and Output 05/07/17 05/07/17 05/08/17 14:59 22:59 06:59 Intake Total 100 ml 2500 ml 480 ml Output Total 525 ml 1025 ml Balance 100 ml 1975 ml -545 ml Exam ENMT: mucosa pink and moist, nl external ears & nose, nl lips & teeth, nl nasal mucosa & septum Neck: non-tender, supple Respiratory: clear to auscultation, normal air movement Cardiovascular: nl pulses, regular rate and rhythm Gastrointestinal: nl liver, spleen, non-tender, soft Results Result Diagram: 05/08/17 0400 05/08/17 0400 HARRY EDGE MD May 08, 2017 19:33
[2017-05-08] MEDS ORDERED: DIPHENHYDRAMINE 25 MG CAP PO PRN (20:00)
[2017-05-09] VITALS (17 sets, daily range): BP systolic 86–144; BP diastolic 53–86; PULSE 61–100; RESP 11–23
[2017-05-09] MEDS: HYDROmorphONE 1 MG/ML SYG IV PRN ×2 (00:41→03:08)
[2017-05-09] MEDS: morphine 4 MG/ML VIAL IV PRN (08:06)
[2017-05-09] MEDS: OXYCODONE/ACETAMINOPHEN (5/325) TAB PO PRN ×4 (09:57→20:48)
[2017-05-09] MEDS: LEVOFLOXACIN 500MG/D5W (PMX) 100 ML IVPB SCH (09:59)
--- NOTE | 2017-05-09 10:13 | PN ---
Date/Time of Note Date/Time of Note DATE: 05/09/17 TIME: 10:13 Assessment/Plan VTE Prophylaxis VTE Prophylaxis Intervention: SCD's Lines/Catheters IV Catheter Type (from Nrs): Peripheral IV Urinary Cath still in place: No Assessment/Plan Assessment/Plan 1. Recurrent spontaneous pneumothorax, s/p VATS on 05/07 - Patient feeling significantly better after surgery. Chest tube in place with no issues - Pulmonology on board and recommendations appreciated - CT surgery on board and consultation appreciated. underwent VATS with decortications and removal of adhesions and apical blebs - CXR shows stable chest tube with tiny apical pneumothorax - Pain management 2. Disposition - Chest tube management per CT surgery Subjective 24 Hr Interval Summary Free Text/Dictation patient is feeling better but states after anesthesia from spinal wore off he was experiencing severe pain and body was trembling. Has relief with PO pain medications and no further episodes. No acute overnight events. Exam/Review of Systems Vital Signs Vitals Vital Signs Date Time Temp Pulse Resp B/P Pulse Ox O2 Delivery O2 Flow Rate FiO2 05/09/17 09:00 68 19 117/82 96 Room Air 05/09/17 08:00 98.0 05/05/17 18:40 2.0 Intake and Output 05/08/17 05/08/17 05/09/17 15:00 23:00 07:00 Intake Total 220 ml 465 ml 200 ml Output Total 1400 ml 1131 ml 280 ml Balance -1180 ml -666 ml -80 ml Exam General: NAD, awake and alert. answering questions appropriately HEENT: NC/AT, PERRL. neck supple and midline. CVS: S1, S2, RRR, no murmurs Lungs: CTA b/l. no wheezing or rhonchi. chest tube in place and site CDI Abd: soft, NT, ND, +BS. no rebound or guarding. Ext: moving all extremities. no cyanosis, edema, clubbing Results Result Diagram: 05/08/1739905/08/17399 Medications Medications Current Medications Morphine Sulfate 3 mg 3 mg Q4H PRN IV PAIN LEVEL 8-10 Last administered on t 08:06; Admin Dose 3 MG; Start 05/05/17 at 23:30 Levofloxacin/ Dextrose (Levaquin 500mg/ D5W 100 ml (Pmx)) 100 ml @ 100 mls/hr Q24H IVPB Last administered on 05/09/17 09:59; Admin Dose 100 MLS/HR; Start 05/06/17 at 10:00 Hydromorphone HCl (Dilaudid) 0.5 mg Q2H PRN IV pain Last administered on 03:08; Admin Dose 0.5 MG; Start 05/06/17 at 11:30 Lorazepam (Ativan) 1 mg Q8H PRN PO ANXIETY; Start 05/06/17 at 11:30 Diphenhydramine HCl (Benadryl) 25 mg Q6H PRN PO ITCHING Last administered on 19:55; Admin Dose 25 MG; Start 05/08/17 at 20:00 Docusate Sodium (Colace) 100 mg BID PO ; Start 05/09/17 at 21:00 Oxycodone/ Acetaminophen (Percocet (5/ 325)) 1 tab Q4H PRN PO PAIN LEVEL 1-5 Last administered on 05/09/17 09:57; Admin Dose 1 TAB; Start 05/09/17 at 10: 00 Oxycodone/ Acetaminophen (Percocet (5/ 325)) 2 tab Q6 PRN PO SEVERE PAIN LEVEL 7-10; Start 05/09/17 at 10:00 ELIZABETH TRIVEID MD May 09, 2017 10:13
--- NOTE | 2017-05-09 10:56 | RADRPT ---
PROCEDURE: XR Chest. CLINICAL INDICATION: VATS/Chest Tube followup TECHNIQUE: Single frontal view of the chest was obtained COMPARISON: 05/08/2017 FINDINGS: The heart and mediastinum are within normal limits. The large caliber right chest tube remains in position. A very tiny right apical pneumothorax is aga in seen. The lungs are clear. The left pleural space is clear. The bones and soft tissue show no acute change. IMPRESSION: 1. Stable large right chest tube with a stable, very tiny right apical pneumothorax. 2. Otherwise, no significant abnormalities are identified. RPTAT:AAJJ Physician Matthew Date Time Electronically viewed and signed by Umair Aaron Physician on 05/09/2017 10:55 /
--- NOTE | 2017-05-09 11:05 | CONS ---
Date/Time of Note Date/Time of Note DATE: 05/09/17 TIME: 11:05 Consult Date/Type/Reason Admit Date/Time May 05, 2017 at 21:12 Type of Consultation: Pulmonary Subjective Complaining of pain around chest tube insertion site. No shortness of breath. No air leak visible. Objective Vital Signs Date Time Temp Pulse Resp B/P Pulse Ox O2 Delivery O2 Flow Rate FiO2 05/09/17 09:00 68 19 117/82 96 Room Air 05/09/17 08:00 98.0 05/05/17 18:40 2.0 Intake and Output 05/08/17 05/08/17 05/09/17 14:59 22:59 06:59 Intake Total 340 ml 465 ml 200 ml Output Total 1700 ml 1131 ml 280 ml Balance -1360 ml -666 ml -80 ml Exam GENERAL: Well-nourished well-developed young gentleman appears comfortable at rest. VITAL SIGNS: per chart NECK: Supple. No JVD or lymphadenopathy. CARDIAC EXAM: S1, S2. No added sounds or murmurs. CHEST: Diminished air entry bilaterally with rales right base. ABDOMEN: Soft, nontender. No guarding or rebound. EXTREMITIES: No cyanosis, clubbing or edema. NEUROLOGIC: Generalized weakness. No focal deficits. Results/Medications Result Diagram: 05/08/17 0400 05/08/17 0400 Medications Current Medications Morphine Sulfate (morphine) 3 mg Q4H PRN IV PAIN LEVEL 8-10 Last administered on 05/09/17 08:06; Admin Dose 3 MG; Start 05/05/17 at 23:30 Hydromorphone HCl (Dilaudid) 0.5 mg Q2H PRN IV pain Last administered on 03:08; Admin Dose 0.5 MG; Start 05/06/17 at 11:30 Lorazepam (Ativan) 1 mg Q8H PRN PO ANXIETY; Start 05/06/17 at 11:30 Diphenhydramine HCl (Benadryl) 25 mg Q6H PRN PO ITCHING Last administered on 19:55; Admin Dose 25 MG; Start 05/08/17 at 20:00 Docusate Sodium (Colace) 100 mg BID PO ; Start 05/09/17 at 21:00 Oxycodone/ Acetaminophen (Percocet (5/ 325)) 1 tab Q4H PRN PO PAIN LEVEL 1-5 Last administered on 05/09/17t 09:57; Admin Dose 1 TAB; Start 05/09/17 at 10: 00 Oxycodone/ Acetaminophen (Percocet (5/ 325)) 2 tab Q6 PRN PO SEVERE PAIN LEVEL 7-10; Start 05/09/17 at 10:00 Assessment/Plan Chief Complaint/Hosp Course Assessment 1. 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 Status post lung resection chest tube in place. Plan 1. Continue chest tube suction 2. Transfer to [facility]. 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
--- NOTE | 2017-05-09 20:19 | PN ---
Date/Time of Note Date/Time of Note DATE: 05/09/17 TIME: 20:18 Assessment/Plan Lines/Catheters IV Catheter Type (from Nrsg): Saline Lock Mckeon in Place (from Nrsg): No Assessment/Plan Chief Complaint/Hosp Course SP VATS Very Tiny PTX will continue Ct Sxn Problems: Subjective 24 Hr Interval Summary Constitutional: improved Pain Control: mild Exam/Review of Systems Vital Signs Vitals Vital Signs Date Time Temp Pulse Resp B/P Pulse Ox O2 Delivery O2 Flow Rate FiO2 05/09/17 20:11 98.0 100 18 144/77 99 05/09/17 11:00 Room Air 05/05/17 18:40 2.0 Intake and Output 05/08/17 05/08/17 05/09/17 14:59 22:59 06:59 Intake Total 340 ml 465 ml 200 ml Output Total 1700 ml 1131 ml 280 ml Balance -1360 ml -666 ml -80 ml Exam ENMT: mucosa pink and moist, nl external ears & nose, nl lips & teeth, nl nasal mucosa & septum Neck: non-tender, supple Respiratory: clear to auscultation, normal air movement Cardiovascular: nl pulses, regular rate and rhythm Gastrointestinal: nl liver, spleen, non-tender, soft Results Result Diagram: 05/08/1739905/08/17399 HARRY EDGE MD May 09, 2017 20:19
[2017-05-09] MEDS ORDERED: OXYCODONE/ACETAMINOPHEN (5/325) TAB PO SCH (20:45)
[2017-05-09] MEDS: DOCUSATE SODIUM 100 MG CAP PO SCH (20:49)
[2017-05-10] VITALS (10 sets, daily range): BP systolic 111–142; BP diastolic 68–86; PULSE 64–82; RESP 18–19
[2017-05-10] MEDS: OXYCODONE/ACETAMINOPHEN (5/325) TAB PO PRN ×4 (03:02→21:15)
[2017-05-10 07:34] LABS: BASOPHILS % 0.5 % (0.0-2.0); EOSINOPHILS # 0.1 10^3/ul (0.0-0.5); EOSINOPHILS % 2.4 % (0.0-7.0); HEMATOCRIT 37.7 % (42.0-52.0); HEMOGLOBIN 13.2 g/dl (14.0-18.0); LYMPHOCYTES # 2.1 10^3/ul (0.8-2.9); LYMPHOCYTES % 36.3 % (15.0-51.0); MEAN CORPUSCULAR HEMOGLOBIN 31.9 pg (29.0-33.0); MEAN CORPUSCULAR VOLUME 91.1 fl (82.0-101.0); MEAN PLATELET VOLUME 9.4 fl (7.4-10.4); MONOCYTE # 0.7 10^3/ul (0.3-0.9); MONOCYTES % 11.4 % (0.0-11.0); NEUTROPHIL # 2.9 10^3/ul (1.6-7.5); NEUTROPHILS % 49.1 % (39.0-77.0); PLATELET COUNT 195 10^3/UL (140-415); RED BLOOD COUNT 4.14 10^6/ul (4.70-6.10); RED CELL DISTRIBUTION WIDTH 11.8 % (11.5-14.5); WHITE BLOOD COUNT 5.9 10^3/ul (4.8-10.8)
[2017-05-10] MEDS: DOCUSATE SODIUM 100 MG CAP PO SCH ×2 (09:06→20:30)
--- NOTE | 2017-05-10 10:49 | PN ---
Date/Time of Note Date/Time of Note DATE: 05/10/17 TIME: 10:48 Assessment/Plan VTE Prophylaxis VTE Prophylaxis Intervention: SCD's Lines/Catheters IV Catheter Type (from Nrs): Saline Lock Urinary Cath still in place: No Assessment/Plan Assessment/Plan 1. Recurrent spontaneous pneumothorax, s/p VATS on 05/07 - Patient feeling significantly better after surgery. Chest tube in place with no issues - Pulmonology on board and recommendations appreciated. Plans for waterseal and repeat CXR. Will clamp tmrw and check CXR to see if able to remove chest tube - CT surgery on board and consultation appreciated. underwent VATS with decortications and removal of adhesions and apical blebs - CXR shows stable chest tube with tiny apical pneumothorax - Pain management 2. Disposition - Plans for clamp of chest tube tomorrow with repeat CXR to assess whether able to d/c chest tube Subjective 24 Hr Interval Summary Free Text/Dictation patient feeling better and resting comfortably. Adequate pain control and no acute overnight events. Exam/Review of Systems Vital Signs Vitals Vital Signs Date Time Temp Pulse Resp B/P Pulse Ox O2 Delivery O2 Flow Rate FiO2 05/10/17 08:00 82 05/10/17 07:10 98.1 19 111/74 98 05/09/17 11:00 Room Air Intake and Output 05/09/17 05/09/17 05/10/17 15:00 23:00 07:00 Intake Total 400 ml 700 ml 900 ml Output Total 400 ml 1005 ml 1600 ml Balance 0 ml -305 ml -700 ml Exam General: NAD, awake and alert. answering questions appropriately HEENT: NC/AT, PERRL. neck supple and midline. CVS: S1, S2, RRR, no murmurs Lungs: CTA b/l. no wheezing or rhonchi. chest tube in place and site CDI Abd: soft, NT, ND, +BS. no rebound or guarding. Ext: moving all extremities. no cyanosis, edema, clubbing Results Result Diagram: 05/10/17 0704 05/08/17 0400 Results 24 hrs Laboratory Tests Test 05/10/17 07:04 White Blood Count 5.9 # Red Blood Count 4.14 L Hemoglobin 13.2 L Hematocrit 37.7 L Mean Corpuscular Volume 91.1 Mean Corpuscular Hemoglobin 31.9 Mean Corpuscular Hemoglobin Concent 35.0 Red Cell Distribution Width 11.8 Platelet Count 195 Mean Platelet Volume 9.4 Neutrophils % 49.1 Lymphocytes % 36.3 Monocytes % 11.4 H Eosinophils % 2.4 Basophils % 0.5 Nucleated Red Blood Cells % 0.0 Neutrophils # 2.9 Lymphocytes # 2.1 Monocytes # 0.7 Eosinophils # 0.1 Basophils # 0.0 Nucleated Red Blood Cells # 0.0 Medications Medications Current Medications Morphine Sulfate (morphine) 3 mg Q4H PRN IV PAIN LEVEL 8-10 Last administered on 05/09/17 08:06; Admin Dose 3 MG; Start 05/05/17 at 23:30 Hydromorphone HCl (Dilaudid) 0.5 mg Q2H PRN IV pain Last administered on 03:08; Admin Dose 0.5 MG; Start 05/06/17 at 11:30 Lorazepam (Ativan) 1 mg Q8H PRN PO ANXIETY; Start 05/06/17 at 11:30 Diphenhydramine HCl (Benadryl) 25 mg Q6H PRN PO ITCHING Last administered on 19:55; Admin Dose 25 MG; Start 05/08/17 at 20:00 Docusate Sodium (Colace) 100 mg BID PO Last administered on 05/10/17 09:06; Admin Dose 100 MG; Start 05/09/17 at 21:00 Oxycodone/ Acetaminophen (Percocet (5/ 325)) 1 tab Q4H PRN PO PAIN LEVEL 1-5 Last administered on 05/09/17 20:01; Admin Dose 1 TAB; Start 05/09/17 at 10: 00 Oxycodone/ Acetaminophen (Percocet (5/ 325)) 2 tab Q6 PRN PO SEVERE PAIN LEVEL 7-10 Last administered on 05/10/17 09:06; Admin Dose 2 TAB; Start 05/09/17 at 10:00 ELIZABETH TRIVEDI MD May 10, 2017 10:49
--- NOTE | 2017-05-10 10:56 | CONS ---
Date/Time of Note Date/Time of Note DATE: 05/10/17 TIME: 10:54 Consult Date/Type/Reason Admit Date/Time May 05, 2017 at 21:12 Type of Consultation: Pulmonary Subjective Sleeping comfortable at rest. Objective Vital Signs Date Time Temp Pulse Resp B/P Pulse Ox O2 Delivery O2 Flow Rate FiO2 05/10/17 08:00 82 05/10/17 07:10 98.1 19 111/74 98 05/09/17 11:00 Room Air Intake and Output 05/09/17 05/09/17 05/10/17 15:00 23:00 07:00 Intake Total 400 ml 700 ml 900 ml Output Total 400 ml 1005 ml 1600 ml Balance 0 ml -305 ml -700 ml Exam GENERAL: Well-nourished well-developed young gentleman appears comfortable at rest. VITAL SIGNS: per chart NECK: Supple. No JVD or lymphadenopathy. CARDIAC EXAM: S1, S2. No added sounds or murmurs. CHEST: Diminished air entry bilaterally with rales right base. ABDOMEN: Soft, nontender. No guarding or rebound. EXTREMITIES: No cyanosis, clubbing or edema. NEUROLOGIC: Generalized weakness. No focal deficits. Results/Medications Result Diagram: 05/10/17 0704 05/08/17 0400 Results 24 hrs Laboratory Tests Test 05/10/17 07:04 White Blood Count 5.9 # Red Blood Count 4.14 L Hemoglobin 13.2 L Hematocrit 37.7 L Mean Corpuscular Volume 91.1 Mean Corpuscular Hemoglobin 31.9 Mean Corpuscular Hemoglobin Concent 35.0 Red Cell Distribution Width 11.8 Platelet Count 195 Mean Platelet Volume 9.4 Neutrophils % 49.1 Lymphocytes % 36.3 Monocytes % 11.4 H Eosinophils % 2.4 Basophils % 0.5 Nucleated Red Blood Cells % 0.0 Neutrophils # 2.9 Lymphocytes # 2.1 Monocytes # 0.7 Eosinophils # 0.1 Basophils # 0.0 Nucleated Red Blood Cells # 0.0 Medications Current Medications Morphine Sulfate (morphine) 3 mg Q4H PRN IV PAIN LEVEL 8-10 Last administered on 05/09/17 08:06; Admin Dose 3 MG; Start 05/05/17 at 23:30 Hydromorphone HCl (Dilaudid) 0.5 mg Q2H PRN IV pain Last administered on 03:08; Admin Dose 0.5 MG; Start 05/06/17 at 11:30 Lorazepam (Ativan) 1 mg Q8H PRN PO ANXIETY; Start 05/06/17 at 11:30 Diphenhydramine HCl (Benadryl) 25 mg Q6H PRN PO ITCHING Last administered on 19:55; Admin Dose 25 MG; Start 05/08/17 at 20:00 Docusate Sodium (Colace) 100 mg BID PO Last administered on 05/10/17 09:06; Admin Dose 100 MG; Start 05/09/17 at 21:00 Oxycodone/ Acetaminophen (Percocet (5/ 325)) 1 tab Q4H PRN PO PAIN LEVEL 1-5 Last administered on 05/09/17 20:01; Admin Dose 1 TAB; Start 05/09/17 at 10: 00 Oxycodone/ Acetaminophen (Percocet (5/ 325)) 2 tab Q6 PRN PO SEVERE PAIN LEVEL 7-10 Last administered on 05/10/17 09:06; Admin Dose 2 TAB; Start 05/09/17 at 10:00 Assessment/Plan Chief Complaint/Hosp Course Assessment 1. 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 2. Status post lung resection chest tube in place. Plan 1. Continue chest tube to waterseal. 2. Repeat chest x-ray 3. Encourage out of bed Problems: [facility] May 10, 2017 10:55
--- NOTE | 2017-05-10 13:37 | RADRPT ---
PROCEDURE: XR Chest. CLINICAL INDICATION: Follow-up pneumothorax TECHNIQUE: Single portable view of the chest was obtained. COMPARISON: 05/09/2017 and additional prior studies FINDINGS: Cardiac/vascular structures: Normal cardiomediastinal silhouette. Pulmonary: Stable position of right chest tube. Suture over the right apex. Stable small right apica l pneumothorax. Lungs are otherwise clear. No pleural effusion. Osseous structures: Normal Soft tissues: Normal IMPRESSION: Stable position of right chest tube with small apical pneumothorax and postsurgical changes. RPTAT:AAJJ Physician Lois Date Time Electronically viewed and signed by Physician Lois on 05/10/2017 13:36 /
[2017-05-10] MEDS ORDERED: ONDANSETRON 4 MG INJ IV PRN (17:00)
--- NOTE | 2017-05-10 18:32 | PN ---
Date/Time of Note Date/Time of Note DATE: 05/10/17 TIME: 18:31 Assessment/Plan Lines/Catheters IV Catheter Type (from Nrsg): Saline Lock Mckeon in Place (from Nrsg): No Assessment/Plan Chief Complaint/Hosp Course SP VATS Very Tiny PTX will clamp Ct Tomorrow Problems: Subjective 24 Hr Interval Summary Constitutional: improved Pain Control: mild Exam/Review of Systems Vital Signs Vitals Vital Signs Date Time Temp Pulse Resp B/P Pulse Ox O2 Delivery O2 Flow Rate FiO2 05/10/17 16:00 82 05/10/17 15:28 98.1 19 142/86 96 05/09/17 11:00 Room Air Intake and Output 05/09/17 05/09/17 05/10/17 15:00 23:00 07:00 Intake Total 400 ml 700 ml 900 ml Output Total 400 ml 1005 ml 1600 ml Balance 0 ml -305 ml -700 ml Exam ENMT: mucosa pink and moist, nl external ears & nose, nl lips & teeth, nl nasal mucosa & septum Neck: non-tender, supple Respiratory: clear to auscultation, normal air movement Cardiovascular: nl pulses, regular rate and rhythm Results Result Diagram: 05/10/17 0704 05/08/17 0400 HARRY EDGE MD May 10, 2017 18:32
[2017-05-11] VITALS (12 sets, daily range): BP systolic 93–135; BP diastolic 54–84; PULSE 65–98; RESP 18–20
[2017-05-11] MEDS: OXYCODONE/ACETAMINOPHEN (5/325) TAB PO PRN ×4 (03:04→21:13)
[2017-05-11 06:43] LABS: BASOPHILS % 0.5 % (0.0-2.0); EOSINOPHILS # 0.2 10^3/ul (0.0-0.5); EOSINOPHILS % 4.1 % (0.0-7.0); HEMATOCRIT 36.8 % (42.0-52.0); HEMOGLOBIN 13.2 g/dl (14.0-18.0); LYMPHOCYTES # 1.7 10^3/ul (0.8-2.9); LYMPHOCYTES % 29.5 % (15.0-51.0); MEAN CORPUSCULAR HGB CONC 35.9 g/dl (32.0-37.0); MEAN CORPUSCULAR VOLUME 89.1 fl (82.0-101.0); MEAN PLATELET VOLUME 9.2 fl (7.4-10.4); MONOCYTE # 0.6 10^3/ul (0.3-0.9); MONOCYTES % 10.8 % (0.0-11.0); NEUTROPHIL # 3.1 10^3/ul (1.6-7.5); NEUTROPHILS % 54.9 % (39.0-77.0); PLATELET COUNT 208 10^3/UL (140-415); RED BLOOD COUNT 4.13 10^6/ul (4.70-6.10); RED CELL DISTRIBUTION WIDTH 11.7 % (11.5-14.5); WHITE BLOOD COUNT 5.7 10^3/ul (4.8-10.8)
[2017-05-11] MEDS: DOCUSATE SODIUM 100 MG CAP PO SCH ×2 (08:52→21:13)
--- NOTE | 2017-05-11 08:54 | RADRPT ---
PROCEDURE: XR Chest. CLINICAL INDICATION: Pneumonia, congestive heart failure. TECHNIQUE: Single frontal portable chest was obtained. COMPARISON: 05/10/2017.. FINDINGS: Cardiac silhouette appears normal. Pulmonary vasculature appears normal. Lungs are well expanded and clear. Right-sided thoracostomy tube remains directed toward the right apex. No change in the tiny, less than 5% right apical pneumothorax. There is trace pleural fluid in the right costophrenic angl e. IMPRESSION: 1. Right thoracostomy tube remains directed toward the right apex. No change in the tiny, less and 5% right apical pneumothorax. 2. Trace pleural fluid in the right costophrenic angle. RPTAT: AACC Physician Isamar Date Time Electronically viewed and signed by Darinel Joiner Physician on 05/11/2017 08:54 /
--- NOTE | 2017-05-11 10:03 | PN ---
Date/Time of Note Date/Time of Note DATE: 05/11/17 TIME: 10:00 Assessment/Plan VTE Prophylaxis VTE Prophylaxis Intervention: SCD's Lines/Catheters IV Catheter Type (from Nrs): Saline Lock Urinary Cath still in place: No Assessment/Plan Assessment/Plan 1. Recurrent spontaneous pneumothorax, s/p VATS on 05/07 - Patient currently on waterseal with plans to clamp tube this am per CT surgery - CT surgery on board and consultation appreciated s/p VATS with decortications and removal of adhesions and apical blebs. Chest tube management per CT surgery and Pulmonology - Patient feeling significantly better after surgery. Chest tube in place with no issues - Pulmonology on board and recommendations appreciated. - CXR shows "right thoracostomy tube remains directed toward the right apex. No change in the tiny, less and 5% right apical pneumothorax" - Pain management 2. Disposition - Plans for clamp of chest tube and repeat CXR - continue monitoring while chest tube in place Subjective 24 Hr Interval Summary Free Text/Dictation Patient doing well and has no new complaints. Anxious to get tube removed and transition home. no acute overnight events. Exam/Review of Systems Vital Signs Vitals Vital Signs Date Time Temp Pulse Resp B/P Pulse Ox O2 Delivery O2 Flow Rate FiO2 05/11/17 08:15 69 05/11/17 07:53 Room Air 05/11/17 07:40 97.9 18 93/54 95 Intake and Output 05/10/17 05/10/17 05/11/17 14:59 22:59 06:59 Intake Total 700 ml 800 ml Output Total 250 ml 1500 ml Balance 450 ml -700 ml Exam General: NAD, awake and alert. answering questions appropriately HEENT: NC/AT, PERRL. neck supple and midline. CVS: S1, S2, RRR, no murmurs Lungs: CTA b/l. no wheezing or rhonchi. chest tube in place to waterseal and no drainage, discharge, or erythema at site Abd: soft, NT, ND, +BS. no rebound or guarding. Ext: moving all extremities. no cyanosis, edema, clubbing Skin: no new lesions/rashes Results Result Diagram: 05/11/17 0601 05/08/17 0400 Results 24 hrs Laboratory Tests Test 05/11/17 06:01 White Blood Count 5.7 Red Blood Count 4.13 L Hemoglobin 13.2 L Hematocrit 36.8 L Mean Corpuscular Volume 89.1 Mean Corpuscular Hemoglobin 32.0 Mean Corpuscular Hemoglobin Concent 35.9 Red Cell Distribution Width 11.7 Platelet Count 208 Mean Platelet Volume 9.2 Neutrophils % 54.9 Lymphocytes % 29.5 Monocytes % 10.8 Eosinophils % 4.1 Basophils % 0.5 Nucleated Red Blood Cells % 0.0 Neutrophils # 3.1 Lymphocytes # 1.7 Monocytes # 0.6 Eosinophils # 0.2 Basophils # 0.0 Nucleated Red Blood Cells # 0.0 Medications Medications Current Medications Morphine Sulfate (morphine) 3 mg Q4H PRN IV PAIN LEVEL 8-10 Last administered on 05/09/17 08:06; Admin Dose 3 MG; Start 05/05/17 at 23:30 Hydromorphone HCl (Dilaudid) 0.5 mg Q2H PRN IV pain Last administered on 03:08; Admin Dose 0.5 MG; Start 05/06/17 at 11:30 Lorazepam (Ativan) 1 mg Q8H PRN PO ANXIETY; Start 05/06/17 at 11:30 Diphenhydramine HCl (Benadryl) 25 mg Q6H PRN PO ITCHING Last administered on 19:55; Admin Dose 25 MG; Start 05/08/17 at 20:00 Docusate Sodium (Colace) 100 mg BID PO Last administered on 05/11/17 08:52; Admin Dose 100 MG; Start 05/09/17 at 21:00 Oxycodone/ Acetaminophen (Percocet (5/ 325)) 1 tab Q4H PRN PO PAIN LEVEL 1-5 Last administered on 05/09/17 20:01; Admin Dose 1 TAB; Start 05/09/17 at 10: 00 Oxycodone/ Acetaminophen (Percocet (5/ 325)) 2 tab Q6 PRN PO SEVERE PAIN LEVEL 7-10 Last administered on 05/11/17 08:52; Admin Dose 2 TAB; Start 05/09/17 at 10:00 Ondansetron HCl (Zofran Inj) 4 mg Q4H PRN IV NAUSEA AND/OR VOMITING; Start at 17:00 ELIZABETH TRIVEDI MD May 11, 2017 10:03
--- NOTE | 2017-05-11 11:10 | CONS ---
Date/Time of Note Date/Time of Note DATE: 05/11/17 TIME: 11:09 Assessment/Plan Assessment/Plan Additional Assessment/Plan Chest x-ray was reviewed from today which is totally clear. Right-sided chest tube is in place. Assessment and recommendations; 1. Patient admitted for recurrent right pneumothorax status post VATS pleurodesis. Continue current treatment. Chest tube most likely can be removed. Consultation Date/Type/Reason Admit Date/Time May 05, 2017 at 21:12 Type of Consultation: Pulmonary 24 HR Interval Summary Free Text/Dictation Patient's condition is stable. Denies any shortness of breath. General exam; young male, awake alert, currently in no distress. Exam/Review of Systems Vital Signs Vitals Vital Signs Date Time Temp Pulse Resp B/P Pulse Ox O2 Delivery O2 Flow Rate FiO2 05/11/17 08:15 69 05/11/17 07:53 Room Air 05/11/17 07:40 97.9 18 93/54 95 Intake and Output 05/10/17 05/10/17 05/11/17 14:59 22:59 06:59 Intake Total 700 ml 800 ml Output Total 250 ml 1500 ml Balance 450 ml -700 ml Exam HEENT exam; supple neck, no JVD. No lymphadenopathy. Chest exam; clear to auscultation. Right-sided chest tube in place. No air leak seen in Pleur-evac chamber. S1-S2 audible, no murmurs. Abdomen exam; soft, Extremity exam; no edema. [employer] exam; no deficit. Results Result Diagram: 05/11/17 0601 05/08/17 0400 Results 24 hrs Laboratory Tests Test 05/11/17 06:01 White Blood Count 5.7 Red Blood Count 4.13 L Hemoglobin 13.2 L Hematocrit 36.8 L Mean Corpuscular Volume 89.1 Mean Corpuscular Hemoglobin 32.0 Mean Corpuscular Hemoglobin Concent 35.9 Red Cell Distribution Width 11.7 Platelet Count 208 Mean Platelet Volume 9.2 Neutrophils % 54.9 Lymphocytes % 29.5 Monocytes % 10.8 Eosinophils % 4.1 Basophils % 0.5 Nucleated Red Blood Cells % 0.0 Neutrophils # 3.1 Lymphocytes # 1.7 Monocytes # 0.6 Eosinophils # 0.2 Basophils # 0.0 Nucleated Red Blood Cells # 0.0 Medications Medications Current Medications Morphine Sulfate (morphine) 3 mg Q4H PRN IV PAIN LEVEL 8-10 Last administered on 05/09/17 08:06; Admin Dose 3 MG; Start 05/05/17 at 23:30 Hydromorphone HCl (Dilaudid) 0.5 mg Q2H PRN IV pain Last administered on 03:08; Admin Dose 0.5 MG; Start 05/06/17 at 11:30 Lorazepam (Ativan) 1 mg Q8H PRN PO ANXIETY; Start 05/06/17 at 11:30 Diphenhydramine HCl (Benadryl) 25 mg Q6H PRN PO ITCHING Last administered on 19:55; Admin Dose 25 MG; Start 05/08/17 at 20:00 Docusate Sodium (Colace) 100 mg BID PO Last administered on 05/11/17 08:52; Admin Dose 100 MG; Start 05/09/17 at 21:00 Oxycodone/ Acetaminophen (Percocet (5/ 325)) 1 tab Q4H PRN PO PAIN LEVEL 1-5 Last administered on 05/09/17 20:01; Admin Dose 1 TAB; Start 05/09/17 at 10: 00 Oxycodone/ Acetaminophen (Percocet (5/ 325)) 2 tab Q6 PRN PO SEVERE PAIN LEVEL 7-10 Last administered on 05/11/17 08:52; Admin Dose 2 TAB; Start 05/09/17 at 10:00 Ondansetron HCl (Zofran Inj) 4 mg Q4H PRN IV NAUSEA AND/OR VOMITING; Start at 17:00 LUISITO FRANCO May 11, 2017 11:10
[2017-05-11] MEDS ORDERED: BISACODYL (EC) 5 MG TAB PO PRN (17:00)
--- NOTE | 2017-05-11 19:24 | PN ---
Date/Time of Note Date/Time of Note DATE: 05/11/17 TIME: 19:22 Assessment/Plan Lines/Catheters IV Catheter Type (from Nrsg): Saline Lock Mckeon in Place (from Nrsg): No Assessment/Plan Chief Complaint/Hosp Course SP VATS Very Tiny PTX will DC Ct Tomorrow Problems: Subjective 24 Hr Interval Summary Constitutional: improved Pain Control: mild Exam/Review of Systems Vital Signs Vitals Vital Signs Date Time Temp Pulse Resp B/P Pulse Ox O2 Delivery O2 Flow Rate FiO2 05/11/17 16:13 98 05/11/17 15:37 98.0 18 135/81 95 05/11/17 15:31 Room Air Intake and Output 05/10/17 05/10/17 05/11/17 15:00 23:00 07:00 Intake Total 700 ml 800 ml Output Total 250 ml 1500 ml Balance 450 ml -700 ml Exam ENMT: mucosa pink and moist, nl external ears & nose, nl lips & teeth, nl nasal mucosa & septum Neck: non-tender, supple Respiratory: clear to auscultation, normal air movement Cardiovascular: nl pulses, regular rate and rhythm Gastrointestinal: nl liver, spleen, non-tender, soft Results Result Diagram: 05/11/17 0601 05/08/17 0400 HARRY EDGE MD May 11, 2017 19:24
[2017-05-12] VITALS (11 sets, daily range): BP systolic 104–129; BP diastolic 60–71; PULSE 60–75; RESP 18–20
[2017-05-12] MEDS: OXYCODONE/ACETAMINOPHEN (5/325) TAB PO PRN ×4 (03:03→22:01)
[2017-05-12] MEDS: DOCUSATE SODIUM 100 MG CAP PO SCH ×2 (08:03→22:01)
[2017-05-12 08:26] LABS: BASOPHILS % 0.4 % (0.0-2.0); EOSINOPHILS # 0.3 10^3/ul (0.0-0.5); EOSINOPHILS % 5.6 % (0.0-7.0); HEMATOCRIT 38.4 % (42.0-52.0); HEMOGLOBIN 13.9 g/dl (14.0-18.0); LYMPHOCYTES # 1.2 10^3/ul (0.8-2.9); LYMPHOCYTES % 23.6 % (15.0-51.0); MEAN CORPUSCULAR HEMOGLOBIN 32.2 pg (29.0-33.0); MEAN CORPUSCULAR HGB CONC 36.2 g/dl (32.0-37.0); MEAN CORPUSCULAR VOLUME 88.9 fl (82.0-101.0); MEAN PLATELET VOLUME 9.2 fl (7.4-10.4); MONOCYTE # 0.6 10^3/ul (0.3-0.9); MONOCYTES % 10.9 % (0.0-11.0); NEUTROPHIL # 3.1 10^3/ul (1.6-7.5); NEUTROPHILS % 59.3 % (39.0-77.0); PLATELET COUNT 227 10^3/UL (140-415); RED BLOOD COUNT 4.32 10^6/ul (4.70-6.10); RED CELL DISTRIBUTION WIDTH 11.7 % (11.5-14.5); WHITE BLOOD COUNT 5.2 10^3/ul (4.8-10.8)
--- NOTE | 2017-05-12 10:09 | PN ---
Date/Time of Note Date/Time of Note DATE: 05/12/17 TIME: 10:09 Assessment/Plan VTE Prophylaxis VTE Prophylaxis Intervention: SCD's Lines/Catheters IV Catheter Type (from [facility], [place]): Saline Lock Urinary Cath still in place: No Assessment/Plan Assessment/Plan 1. Recurrent spontaneous pneumothorax, s/p VATS on 05/07 - Chest tube currently clamped and per CT surgery plans to remove today - CT surgery on board and consultation appreciated s/p VATS with decortications and removal of adhesions and apical blebs. Chest tube management per CT surgery - Patient feeling significantly better after surgery - Pulmonology on board and recommendations appreciated. - CXR shows "Right-sided chest tube with a small right apical pneumothorax, unchanged when compared to prior examination." - Pain management 2. Disposition - Plans for d/c chest tube today Subjective 24 Hr Interval Summary Free Text/Dictation Patient resting comfortably in no acute distress. Plans for removal of chest tube today Exam/Review of Systems Vital Signs Vitals Vital Signs Date Time Temp Pulse Resp B/P Pulse Ox O2 Delivery O2 Flow Rate FiO2 05/12/17 08:15 71 05/12/17 07:51 98.0 18 104/60 100 05/11/17 15:31 Room Air Intake and Output 05/11/17 05/11/17 05/12/17 15:00 23:00 07:00 Intake Total 1200 ml 800 ml Output Total 0 ml 1000 ml 1500 ml Balance 0 ml 200 ml -700 ml Exam General: NAD, awake and alert. answering questions appropriately HEENT: NC/AT, PERRL. neck supple and midline. CVS: S1, S2, RRR, no murmurs Lungs: CTA b/l. no wheezing or rhonchi. chest tube clamped Abd: soft, NT, ND, +BS. no rebound or guarding. Ext: moving all extremities. no cyanosis, edema, clubbing Skin: no new lesions/rashes Results Result Diagram: 05/12/17 0745 05/08/17 0400 Results 24 hrs Laboratory Tests Test 05/12/17 07:45 White Blood Count 5.2 Red Blood Count 4.32 L Hemoglobin 13.9 L Hematocrit 38.4 L Mean Corpuscular Volume 88.9 Mean Corpuscular Hemoglobin 32.2 Mean Corpuscular Hemoglobin Concent 36.2 Red Cell Distribution Width 11.7 Platelet Count 227 Mean Platelet Volume 9.2 Neutrophils % 59.3 Lymphocytes % 23.6 Monocytes % 10.9 Eosinophils % 5.6 Basophils % 0.4 Nucleated Red Blood Cells % 0.0 Neutrophils # 3.1 Lymphocytes # 1.2 Monocytes # 0.6 Eosinophils # 0.3 Basophils # 0.0 Nucleated Red Blood Cells # 0.0 Medications Medications Current Medications Morphine Sulfate (morphine) 3 mg Q4H PRN IV PAIN LEVEL 8-10 Last administered on 05/09/17 08:06; Admin Dose 3 MG; Start 05/05/17 at 23:30 Hydromorphone HCl (Dilaudid) 0.5 mg Q2H PRN IV pain Last administered on 03:08; Admin Dose 0.5 MG; Start 05/06/17 at 11:30 Lorazepam (Ativan) 1 mg Q8H PRN PO ANXIETY; Start 05/06/17 at 11:30 Diphenhydramine HCl (Benadryl) 25 mg Q6H PRN PO ITCHING Last administered on 19:55; Admin Dose 25 MG; Start 05/08/17 at 20:00 Docusate Sodium (Colace) 100 mg BID PO Last administered on 05/12/17 08:03; Admin Dose 100 MG; Start 05/09/17 at 21:00 Oxycodone/ Acetaminophen (Percocet (5/ 325)) 1 tab Q4H PRN PO PAIN LEVEL 1-5 Last administered on 05/12/17 09:14; Admin Dose 1 TAB; Start 05/09/17 at 10:00 Oxycodone/ Acetaminophen (Percocet (5/ 325)) 2 tab Q6 PRN PO SEVERE PAIN LEVEL 7-10 Last administered on 05/12/17 03:03; Admin Dose 2 TAB; Start 05/09/17 at 10:00 Ondansetron HCl (Zofran Inj) 4 mg Q4H PRN IV NAUSEA AND/OR VOMITING; Start at 17:00 Bisacodyl (Dulcolax) 10 mg DAILY PRN PO CONSTIPATION; Start 05/11/17 at 17:00 ELIZABETH TRIVEDI MD May 12, 2017 10:09
--- NOTE | 2017-05-12 10:46 | PN ---
Date/Time of Note Date/Time of Note DATE: 05/12/17 TIME: 10:46 Assessment/Plan Lines/Catheters IV Catheter Type (from Nrsg): Saline Lock Mckeon in Place (from Nrsg): No Assessment/Plan Chief Complaint/Hosp Course SP VATS Very Tiny PTX will DC Ct Problems: Subjective 24 Hr Interval Summary Constitutional: improved Pain Control: well controlled Exam/Review of Systems Vital Signs Vitals Vital Signs Date Time Temp Pulse Resp B/P Pulse Ox O2 Delivery O2 Flow Rate FiO2 05/12/17 08:15 71 05/12/17 07:51 98.0 18 104/60 100 05/11/17 15:31 Room Air Intake and Output 05/11/17 05/11/17 05/12/17 15:00 23:00 07:00 Intake Total 1200 ml 800 ml Output Total 0 ml 1000 ml 1500 ml Balance 0 ml 200 ml -700 ml Exam Eyes: EOMI, nl conjunctiva, nl lids, nl sclera ENMT: mucosa pink and moist, nl external ears & nose, nl lips & teeth, nl nasal mucosa & septum Neck: non-tender, supple Respiratory: clear to auscultation, normal air movement Cardiovascular: nl pulses, regular rate and rhythm Gastrointestinal: nl liver, spleen, non-tender, soft Results Result Diagram: 05/12/17 0745 05/08/17 0400 HARRY EDGE MD May 12, 2017 10:46
--- NOTE | 2017-05-12 12:07 | RADRPT ---
PROCEDURE: XR Chest. CLINICAL INDICATION: Chest tube removal TECHNIQUE: Single frontal view of the chest was obtained COMPARISON: Chest radiograph dated May 11, 2017. FINDINGS: There is a right-sided chest tube with its tip overlying the right lung apex. The heart is normal in size. There is an unchanged small right apical pneumothorax. A stable small right pleural effusion and/or subsegmental atelectasis present. No focal consolidations. The osseous structures are grossly unremarkable. IMPRESSION: 1. Right-sided chest tube with a small right apical pneumothorax, unchanged when compared to prior examination. 2. Stable small right pleural effusion and/or subsegmental atelectasis. RPTAT:AAJJ Physician Emi Date Time Electronically viewed and signed by Physician Emi on 05/12/2017 12:06 QL/
--- NOTE | 2017-05-12 15:28 | CONS ---
Date/Time of Note Date/Time of Note DATE: 05/12/17 TIME: 15:27 Consult Date/Type/Reason Admit Date/Time May 05, 2017 at 21:12 Initial Consult Date Type of Consultation: Pulmonary Subjective No events. Doing well. Objective Vital Signs Date Time Temp Pulse Resp B/P Pulse Ox O2 Delivery O2 Flow Rate FiO2 05/12/17 12:10 75 05/12/17 11:50 98.6 18 115/61 100 05/11/17 15:31 Room Air Intake and Output 05/11/17 05/11/17 05/12/17 15:00 23:00 07:00 Intake Total 1200 ml 800 ml Output Total 0 ml 1000 ml 1500 ml Balance 0 ml 200 ml -700 ml Exam HEENT: Neck supple; no JVD; no LAD CVS: RRR, S1 and S2 CHEST: Clear ABD: Soft, NT, + BS EXT: No c/c/e Results/Medications Result Diagram: 05/12/17 0745 05/08/17 0400 Results 24 hrs Laboratory Tests Test 05/12/17 07:45 White Blood Count 5.2 Red Blood Count 4.32 L Hemoglobin 13.9 L Hematocrit 38.4 L Mean Corpuscular Volume 88.9 Mean Corpuscular Hemoglobin 32.2 Mean Corpuscular Hemoglobin Concent 36.2 Red Cell Distribution Width 11.7 Platelet Count 227 Mean Platelet Volume 9.2 Neutrophils % 59.3 Lymphocytes % 23.6 Monocytes % 10.9 Eosinophils % 5.6 Basophils % 0.4 Nucleated Red Blood Cells % 0.0 Neutrophils # 3.1 Lymphocytes # 1.2 Monocytes # 0.6 Eosinophils # 0.3 Basophils # 0.0 Nucleated Red Blood Cells # 0.0 Medications Current Medications Morphine Sulfate (morphine) 3 mg Q4H PRN IV PAIN LEVEL 8-10 Last administered on 05/09/17 08:06; Admin Dose 3 MG; Start 05/05/17 at 23:30 Hydromorphone HCl (Dilaudid) 0.5 mg Q2H PRN IV pain Last administered on 03:08; Admin Dose 0.5 MG; Start 05/06/17 at 11:30 Lorazepam (Ativan) 1 mg Q8H PRN PO ANXIETY; Start 05/06/17 at 11:30 Diphenhydramine HCl (Benadryl) 25 mg Q6H PRN PO ITCHING Last administered on 19:55; Admin Dose 25 MG; Start 05/08/17 at 20:00 Docusate Sodium (Colace) 100 mg BID PO Last administered on 05/12/17 08:03; Admin Dose 100 MG; Start 05/09/17 at 21:00 Oxycodone/ Acetaminophen (Percocet (5/ 325)) 1 tab Q4H PRN PO PAIN LEVEL 1-5 Last administered on 05/12/17 09:14; Admin Dose 1 TAB; Start 05/09/17 at 10:00 Oxycodone/ Acetaminophen (Percocet (5/ 325)) 2 tab Q6 PRN PO SEVERE PAIN LEVEL 7-10 Last administered on 05/12/17 03:03; Admin Dose 2 TAB; Start 05/09/17 at 10:00 Ondansetron HCl (Zofran Inj) 4 mg Q4H PRN IV NAUSEA AND/OR VOMITING; Start at 17:00 Bisacodyl (Dulcolax) 10 mg DAILY PRN PO CONSTIPATION; Start 05/11/17 at 17:00 Assessment/Plan Additional Assessment/Plan IMP: 1. SSP--s/p VATS repair and d/c CT RECS: 1. D/C planning 2. Mobilize JAYRO BOSS MD May 12, 2017 15:28
[2017-05-13] VITALS (13 sets, daily range): BP systolic 112–133; BP diastolic 67–75; PULSE 61–113; RESP 18–20
[2017-05-13] MEDS: OXYCODONE/ACETAMINOPHEN (5/325) TAB PO PRN ×3 (05:37→21:43)
[2017-05-13] MEDS: DOCUSATE SODIUM 100 MG CAP PO SCH ×2 (08:11→21:42)
--- NOTE | 2017-05-13 09:39 | PN ---
Date/Time of Note Date/Time of Note DATE: 05/13/17 TIME: 09:39 Assessment/Plan VTE Prophylaxis VTE Prophylaxis Intervention: SCD's Lines/Catheters IV Catheter Type (from Nrs): Peripheral IV Urinary Cath still in place: No Assessment/Plan Assessment/Plan 1. Recurrent spontaneous pneumothorax, s/p VATS on 05/07 - Chest tube currently clamped and per CT surgery held removal yesterday. Will repeat CXR and reevaluate if able to remove - CT surgery on board and consultation appreciated s/p VATS with decortications and removal of adhesions and apical blebs. Chest tube management per CT surgery - Patient feeling significantly better after surgery - Pulmonology on board and recommendations appreciated." - Pain management 2. Disposition - Awaiting CT surgery input regarding chest tube Subjective 24 Hr Interval Summary Free Text/Dictation patient resting comfortably. Chest tube still in place per CT surgery. Plans to remove today if remains stable. Exam/Review of Systems Vital Signs Vitals Vital Signs Date Time Temp Pulse Resp B/P Pulse Ox O2 Delivery O2 Flow Rate FiO2 05/13/17 08:49 96 05/13/17 08:32 98.0 18 127/75 99 05/11/17 15:31 Room Air Intake and Output 05/12/17 05/12/17 05/13/17 15:00 23:00 07:00 Intake Total 500 ml 700 ml Output Total 0 ml 700 ml 1150 ml Balance 0 ml -200 ml -450 ml Exam General: NAD, awake and alert. answering questions appropriately HEENT: NC/AT, PERRL. neck supple and midline. CVS: S1, S2, RRR, no murmurs Lungs: CTA b/l. no wheezing or rhonchi. chest tube in place Abd: soft, NT, ND, +BS. no rebound or guarding. Ext: moving all extremities. no cyanosis, edema, clubbing Skin: no new lesions/rashes Results Result Diagram: 05/12/17 0745 Medications Medications Current Medications Morphine Sulfate (morphine) 3 mg Q4H PRN IV PAIN LEVEL 8-10 Last administered on 05/09/17 08:06; Admin Dose 3 MG; Start 05/05/17 at 23:30 Hydromorphone HCl (Dilaudid) 0.5 mg Q2H PRN IV pain Last administered on 03:08; Admin Dose 0.5 MG; Start 05/06/17 at 11:30 Lorazepam (Ativan) 1 mg Q8H PRN PO ANXIETY; Start 05/06/17 at 11:30 Diphenhydramine HCl (Benadryl) 25 mg Q6H PRN PO ITCHING Last administered on 19:55; Admin Dose 25 MG; Start 05/08/17 at 20:00 Docusate Sodium (Colace) 100 mg BID PO Last administered on 05/13/17 08:11; Admin Dose 100 MG; Start 05/09/17 at 21:00 Oxycodone/ Acetaminophen (Percocet (5/ 325)) 1 tab Q4H PRN PO PAIN LEVEL 1-5 Last administered on 05/12/17 16:04; Admin Dose 1 TAB; Start 05/09/17 at 10:00 Oxycodone/ Acetaminophen (Percocet (5/ 325)) 2 tab Q6 PRN PO SEVERE PAIN LEVEL 7-10 Last administered on 05/13/17 05:37; Admin Dose 2 TAB; Start 05/09/17 at 10:00 Ondansetron HCl (Zofran Inj) 4 mg Q4H PRN IV NAUSEA AND/OR VOMITING; Start at 17:00 Bisacodyl (Dulcolax) 10 mg DAILY PRN PO CONSTIPATION; Start 05/11/17 at 17:00 ELIZABETH TRIVEDI MD May 13, 2017 09:39
--- NOTE | 2017-05-13 14:18 | CONS ---
Date/Time of Note Date/Time of Note DATE: 05/13/17 TIME: 14:17 Consult Date/Type/Reason Admit Date/Time May 05, 2017 at 21:12 Type of Consultation: Pulmonary Subjective No events. CT clamped overnight. No PTX on CXR Objective Vital Signs Date Time Temp Pulse Resp B/P Pulse Ox O2 Delivery O2 Flow Rate FiO2 05/13/17 13:11 98.0 77 18 119/67 98 05/11/17 15:31 Room Air Intake and Output 05/12/17 05/12/17 05/13/17 15:00 23:00 07:00 Intake Total 500 ml 700 ml Output Total 0 ml 700 ml 1150 ml Balance 0 ml -200 ml -450 ml Exam HEENT: Neck supple; no JVD; no LAD CVS: RRR, S1 and S2 CHEST: Clear ABD: Soft, NT, + BS EXT: No c/c/e Results/Medications Result Diagram: 05/12/17 0745 Medications Current Medications Morphine Sulfate (morphine) 3 mg Q4H PRN IV PAIN LEVEL 8-10 Last administered on 05/09/17 08:06; Admin Dose 3 MG; Start 05/05/17 at 23:30 Hydromorphone HCl (Dilaudid) 0.5 mg Q2H PRN IV pain Last administered on 03:08; Admin Dose 0.5 MG; Start 05/06/17 at 11:30 Lorazepam (Ativan) 1 mg Q8H PRN PO ANXIETY; Start 05/06/17 at 11:30 Diphenhydramine HCl (Benadryl) 25 mg Q6H PRN PO ITCHING Last administered on 19:55; Admin Dose 25 MG; Start 05/08/17 at 20:00 Docusate Sodium (Colace) 100 mg BID PO Last administered on 05/13/17 08:11; Admin Dose 100 MG; Start 05/09/17 at 21:00 Oxycodone/ Acetaminophen (Percocet (5/ 325)) 1 tab Q4H PRN PO PAIN LEVEL 1-5 Last administered on 05/12/17 16:04; Admin Dose 1 TAB; Start 05/09/17 at 10:00 Oxycodone/ Acetaminophen (Percocet (5/ 325)) 2 tab Q6 PRN PO SEVERE PAIN LEVEL 7-10 Last administered on 05/13/17t 11:16; Admin Dose 2 TAB; Start 05/09/17 at 10:00 Ondansetron HCl (Zofran Inj) 4 mg Q4H PRN IV NAUSEA AND/OR VOMITING; Start at 17:00 Bisacodyl (Dulcolax) 10 mg DAILY PRN PO CONSTIPATION; Start 05/11/17 at 17:00 Assessment/Plan Additional Assessment/Plan IMP: 1. SSP--s/p VATS repair and d/c CT RECS: 1. D/C CT okay; will await CTS 2. Mobilize OOB 3. D/C planning JAYRO DAVIES MD May 13, 2017 14:18
--- NOTE | 2017-05-13 15:10 | PN ---
Date/Time of Note Date/Time of Note DATE: 05/13/17 TIME: 15:09 Assessment/Plan Lines/Catheters IV Catheter Type (from Nrsg): Peripheral IV Mckeon in Place (from Nrsg): No Assessment/Plan Chief Complaint/Hosp Course SP VATS Very Tiny PTX CT DCed pt may go home if no change in CXR Problems: Subjective 24 Hr Interval Summary Constitutional: improved Pain Control: mild Exam/Review of Systems Vital Signs Vitals Vital Signs Date Time Temp Pulse Resp B/P Pulse Ox O2 Delivery O2 Flow Rate FiO2 05/13/17 13:11 98.0 77 18 119/67 98 05/11/17 15:31 Room Air Intake and Output 05/12/17 05/12/17 05/13/17 15:00 23:00 07:00 Intake Total 500 ml 700 ml Output Total 0 ml 700 ml 1150 ml Balance 0 ml -200 ml -450 ml Exam ENMT: mucosa pink and moist, nl external ears & nose, nl lips & teeth, nl nasal mucosa & septum Neck: non-tender, supple Respiratory: clear to auscultation, normal air movement Cardiovascular: nl pulses, regular rate and rhythm Results Result Diagram: 05/12/17 0745 HARRY EDGE MD May 13, 2017 15:10
--- NOTE | 2017-05-13 17:06 | RADRPT ---
PROCEDURE: XR Chest AP portable CLINICAL INDICATION: Chest tube removal evaluation TECHNIQUE: An AP portable radiograph of the chest was submitted. COMPARISON: 05/12/2017 FINDINGS: Support Hardware: The right-sided thoracostomy tube is stable in positioning with the tip projecting to the right pulmonary apex. Cardiovascular: The cardiovascular silhouette appears unremarkable. Lung Velasquez: A staple line projects to the medial right subapical region. The lung velasquez appear kee ar with no nodule, alveolar infiltrate, or interstitial prominence evident. Pleural Spaces: There is again a small right apical pneumothorax which is approximately 5% by volume . No pleural fluid accumulation is evident. Osseous Structures: The osseous structures appear intact. Soft Tissues: The soft tissues appear unremarkable. IMPRESSION: 1. A staple line is again seen in the right medial subapical region. 2. Stable appearing small left apical pneumothorax of approximately 5% by volume. 3. The right-sided thoracostomy tube is stable in positioning. Physician Noemí Date Time Electronically viewed and signed by Physician Noemí on 05/13/2017 17:06 /
--- NOTE | 2017-05-13 19:20 | PDOCDIS ---
Discharge Instructions DIAGNOSIS Discharge Diagnosis Recurrent spontaneous pneumothorax, s/p VATS on 05/07 CONDITION Patient Condition: Fair HOME CARE INSTRUCTIONS: Diet Instructions: RegularSpecial Diet: regular ACTIVITY: Activity Restrictions: No Restrictions FOLLOW UP/APPOINTMENTS Follow-up Plan 1. Follow up with your primary care physician in 1 week 2. Follow up with Dr. Hernández in 1 week for repeat CXR 3. If symptoms worsen, please return to the ED. ELIZABETH TRIVEDI MD May 13, 2017 19:20
--- NOTE | 2017-05-13 19:21 | DS ---
Date/Time of Note Date/Time of Note DATE: 05/13/17 TIME: 19:21 Discharge Summary Admission/Discharge Info Admit Date/Time May 05, 2017 at 21:12 Discharge Date/Time Discharge Diagnosis Recurrent spontaneous pneumothorax, s/p VATS on 05/07 Home Meds Active Scripts Hydrocodone Bit-Acetaminophen (Hydrocodone Bit-APAP) 5-325MG Tablet, 1 TAB PO Q6 Y for SOB for 10 Days, #20 TAB Prov:ELIZABETH TRIVEDI MD 04/25/17 Follow-up Plan 1. Follow up with your primary care physician in 1 week 2. Follow up with Dr. Hernández in 1 week for repeat CXR 3. If symptoms worsen, please return to the ED. Primary Care Provider MD SHIKHA Garcia ERIN MD May 13, 2017 19:21
--- NOTE | 2017-05-13 19:35 | RADRPT ---
PROCEDURE: XR Chest. CLINICAL INDICATION: Chest tube removal. Pneumothorax. TECHNIQUE: Single portable view of the chest was obtained. COMPARISON: 05/13/2017 and additional prior studies FINDINGS: Cardiac/vascular structures: Normal cardiomediastinal silhouette. Pulmonary: Interval removal of right chest tube. Interval increased size of the right pneumothorax w hich is approximately 50%. Suture over the right apex. Mild mediastinal shift to the left. Left lung is clear. No pleural effusion. Osseous structures: Normal Soft tissues: Normal IMPRESSION: Interval increase size of right pneumothorax post chest tube removal with mild mediastinal shift to the left. RPTAT:AAJJ Results called to the patient's nurseHoracio at 05/13/2017 7:28:50 PM. Physician Lois Date Time Electronically viewed and signed by Physician Lois on 05/13/2017 19:34 /
--- NOTE | 2017-05-13 21:11 | RADRPT ---
PROCEDURE: XR Chest. CLINICAL INDICATION: Follow-up pneumothorax TECHNIQUE: Single portable view of the chest was obtained. COMPARISON: 05/13/2017 and additional prior studies FINDINGS: Cardiac/vascular structures: Normal cardiomediastinal silhouette. Pulmonary: No significant change of the right pneumothorax which is approximately 50%, measuring 8.5 cm in the apex, previously 8.6 cm. Sutures over the right lung apex. Decreased mediastinal shift to the left. Left lung is clear. No pleural effusion. Osseous structures: Normal Soft tissues: Normal IMPRESSION: No significant change of the approximate 50% right pneumothorax. RPTAT:AAJJ Physician Lois Date Time Electronically viewed and signed by Michelle Patel Physician on 05/13/2017 21:11 /
[2017-05-14] VITALS (11 sets, daily range): BP systolic 111–136; BP diastolic 52–89; PULSE 60–96; RESP 19–20
[2017-05-14] MEDS: OXYCODONE/ACETAMINOPHEN (5/325) TAB PO PRN ×3 (05:19→18:58)
--- NOTE | 2017-05-14 08:04 | RADRPT ---
PROCEDURE: XR Chest. CLINICAL INDICATION: pain TECHNIQUE: Single portable view of the chest was obtained COMPARISON: Yesterday FINDINGS: There is minimally improved moderate right-sided pneumothorax.. The heart, lungs and mediastinum are otherwise unchanged. The heart is normal in size.. RPTAT: AA IMPRESSION: Minimally improved moderate right-sided pneumothorax. No other significant change. .Yair Estrada MD, MD Date Time Electronically viewed and signed by .Yair Estrada MD, MD on 05/14/2017 08:04 .S/
[2017-05-14] MEDS: DOCUSATE SODIUM 100 MG CAP PO SCH ×2 (09:10→20:20)
--- NOTE | 2017-05-14 16:00 | PN ---
Date/Time of Note Date/Time of Note DATE: 05/14/17 TIME: 15:58 Assessment/Plan VTE Prophylaxis VTE Prophylaxis Intervention: ambulation, SCD's Lines/Catheters IV Catheter Type (from Nrsg): Peripheral IV Urinary Cath still in place: No Assessment/Plan Chief Complaint/Hosp Course s: 12.4 still painful right side, no sob o: Physical exam General: Patient is laying in bed and answers questions appropriately Mentation: Patient is alert and oriented 4, Head: Normocephalic atraumatic Eyes: EOMI, pupils reactive to light Neck: Supple, nontender, midline Respiratory: Clear to auscultation bilaterally Cardiovascular: regular rate, no obvious murmurs Gastrointestinal: non-tender to palpation, bowel sounds heard. Neurological: Moves all extremities spontaneously Skin: No new skin lesions Assessment/Plan 1. Recurrent spontaneous pneumothorax, s/p VATS on 05/07 - Chest tube removed, but developed new ptx, monitor per CT surgery - CT surgery on board and consultation appreciated s/p VATS with decortications and removal of adhesions and apical blebs. - Patient feeling significantly better after surgery - Pulmonology on board and recommendations appreciated." - Pain management 2. Disposition - Awaiting CT surgery input regarding possible new chest tube insertion Problems: Exam/Review of Systems Vital Signs Vitals Vital Signs Date Time Temp Pulse Resp B/P Pulse Ox O2 Delivery O2 Flow Rate FiO2 05/14/17 15:31 98.2 65 20 127/52 99 05/14/17 15:12 15.0 05/14/17 00:00 Non Rebreather Intake and Output 05/13/17 05/13/17 05/14/17 15:00 23:00 07:00 Intake Total 750 ml 800 ml Output Total 1400 ml 1200 ml Balance -650 ml -400 ml Results Result Diagram: 05/12/17 0745 Medications Medications Current Medications Morphine Sulfate (morphine) 3 mg Q4H PRN IV PAIN LEVEL 8-10 Last administered on 05/09/17 08:06; Admin Dose 3 MG; Start 05/05/17 at 23:30 Hydromorphone HCl (Dilaudid) 0.5 mg Q2H PRN IV pain Last administered on 03:08; Admin Dose 0.5 MG; Start 05/06/17 at 11:30 Lorazepam (Ativan) 1 mg Q8H PRN PO ANXIETY; Start 05/06/17 at 11:30 Diphenhydramine HCl (Benadryl) 25 mg Q6H PRN PO ITCHING Last administered on 19:55; Admin Dose 25 MG; Start 05/08/17 at 20:00 Docusate Sodium (Colace) 100 mg BID PO Last administered on 05/14/17 09:10; Admin Dose 100 MG; Start 05/09/17 at 21:00 Oxycodone/ Acetaminophen (Percocet (5/ 325)) 1 tab Q4H PRN PO PAIN LEVEL 1-5 Last administered on 05/12/17 16:04; Admin Dose 1 TAB; Start 05/09/17 at 10:00 Oxycodone/ Acetaminophen (Percocet (5/ 325)) 2 tab Q6 PRN PO SEVERE PAIN LEVEL 7-10 Last administered on 05/14/17 12:05; Admin Dose 2 TAB; Start 05/09/17 at 10:00 Ondansetron HCl (Zofran Inj) 4 mg Q4H PRN IV NAUSEA AND/OR VOMITING; Start at 17:00 Bisacodyl (Dulcolax) 10 mg DAILY PRN PO CONSTIPATION; Start 05/11/17 at 17:00 GRACIA CORDON May 14, 2017 16:00
--- NOTE | 2017-05-14 16:05 | CONS ---
Date/Time of Note Date/Time of Note DATE: 05/14/17 TIME: 16:04 Consult Date/Type/Reason Admit Date/Time May 05, 2017 at 21:12 Type of Consultation: Pulmonary Subjective Patient comfortable. No new events mild dyspnea. Pneumothorax noted. Objective Vital Signs Date Time Temp Pulse Resp B/P Pulse Ox O2 Delivery O2 Flow Rate FiO2 05/14/17 15:31 98.2 65 20 127/52 99 05/14/17 15:12 15.0 05/14/17 00:00 Non Rebreather Intake and Output 05/13/17 05/13/17 05/14/17 15:00 23:00 07:00 Intake Total 750 ml 800 ml Output Total 1400 ml 1200 ml Balance -650 ml -400 ml Exam GENERAL: Well-nourished well-developed gentleman comfortable at rest no acute distress VITAL SIGNS: per chart NECK: Supple. No JVD or lymphadenopathy. CARDIAC EXAM: S1, S2. No added sounds or murmurs. CHEST: Diminished air entry right lung base. ABDOMEN: Soft, nontender. No guarding or rebound. EXTREMITIES: No cyanosis, clubbing or edema. NEUROLOGIC: Generalized weakness. No focal deficits. Results/Medications Result Diagram: 05/12/17 0745 Medications Current Medications Morphine Sulfate (morphine) 3 mg Q4H PRN IV PAIN LEVEL 8-10 Last administered on 05/09/17 08:06; Admin Dose 3 MG; Start 05/05/17 at 23:30 Hydromorphone HCl (Dilaudid) 0.5 mg Q2H PRN IV pain Last administered on 03:08; Admin Dose 0.5 MG; Start 05/06/17 at 11:30 Lorazepam (Ativan) 1 mg Q8H PRN PO ANXIETY; Start 05/06/17 at 11:30 Diphenhydramine HCl (Benadryl) 25 mg Q6H PRN PO ITCHING Last administered on 19:55; Admin Dose 25 MG; Start 05/08/17 at 20:00 Docusate Sodium (Colace) 100 mg BID PO Last administered on 05/14/17 09:10; Admin Dose 100 MG; Start 05/09/17 at 21:00 Oxycodone/ Acetaminophen (Percocet (5/ 325)) 1 tab Q4H PRN PO PAIN LEVEL 1-5 Last administered on 05/12/17 16:04; Admin Dose 1 TAB; Start 05/09/17 at 10:00 Oxycodone/ Acetaminophen (Percocet (5/ 325)) 2 tab Q6 PRN PO SEVERE PAIN LEVEL 7-10 Last administered on 05/14/17 12:05; Admin Dose 2 TAB; Start 05/09/17 at 10:00 Ondansetron HCl (Zofran Inj) 4 mg Q4H PRN IV NAUSEA AND/OR VOMITING; Start at 17:00 Bisacodyl (Dulcolax) 10 mg DAILY PRN PO CONSTIPATION; Start 05/11/17 at 17:00 Assessment/Plan Chief Complaint/Hosp Course Assessment 1. 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 2. Recurrence of pneumothorax following chest tube removal Plan 1. Continue supplemental O2 as needed 2. Repeat chest x-ray 3. We will discuss with thoracic surgery regarding best management. Problems: ANABEL BECKER MD, [facility] May 14, 2017 16:05
--- NOTE | 2017-05-14 21:19 | PN ---
Date/Time of Note Date/Time of Note DATE: 05/14/17 TIME: 21:12 Assessment/Plan Lines/Catheters IV Catheter Type (from Nrsg): Peripheral IV Mckeon in Place (from Nrsg): No Assessment/Plan Chief Complaint/Hosp Course SP VATS CT removed yesterday pt developed 50% PTX todays CXR improving will repeat CXR in am Continue 100 NRB O2 may need pigtail cath if CXR does nor improve discussed with the pt Problems: Subjective 24 Hr Interval Summary Constitutional: improved Pain Control: mild Exam/Review of Systems Vital Signs Vitals Vital Signs Date Time Temp Pulse Resp B/P Pulse Ox O2 Delivery O2 Flow Rate FiO2 05/14/17 20:02 98.4 95 19 136/89 97 05/14/17 15:12 15.0 05/14/17 00:00 Non Rebreather Intake and Output 05/13/17 05/13/17 05/14/17 15:00 23:00 07:00 Intake Total 750 ml 800 ml Output Total 1400 ml 1200 ml Balance -650 ml -400 ml Exam ENMT: mucosa pink and moist, nl external ears & nose, nl lips & teeth, nl nasal mucosa & septum Neck: non-tender, supple Respiratory: clear to auscultation, normal air movement Cardiovascular: nl pulses, regular rate and rhythm Results Result Diagram: 05/12/17 0745 HARRY EDGE MD May 14, 2017 21:19
[2017-05-15] VITALS (12 sets, daily range): BP systolic 97–153; BP diastolic 63–74; PULSE 70–90; RESP 18–20
[2017-05-15] MEDS: OXYCODONE/ACETAMINOPHEN (5/325) TAB PO PRN ×4 (01:02→21:48)
[2017-05-15] MEDS: DOCUSATE SODIUM 100 MG CAP PO SCH ×2 (08:53→21:00)
--- NOTE | 2017-05-15 09:22 | RADRPT ---
PROCEDURE: XR Chest. CLINICAL INDICATION: pain TECHNIQUE: Single portable view of the chest was obtained COMPARISON: Yesterday FINDINGS: The heart, lungs and mediastinum are unchanged. There is a persistent moderate right-sided pneumotho rax with right lower lobe atelectasis, not significantly changed. Heart is normal in size.. RPTAT: AA IMPRESSION: No significant change. Unchanged moderate right-sided pneumothorax with right lower lobe atelectasis. .Yair Estrada MD, MD Date Time Electronically viewed and signed by .Yair Estrada MD, on 05/15/2017 09:22 .S/
--- NOTE | 2017-05-15 11:12 | CONS ---
Date/Time of Note Date/Time of Note DATE: 05/15/17 TIME: 11:09 Consult Date/Type/Reason Admit Date/Time May 05, 2017 at 21:12 Type of Consultation: Pulmonary Subjective Patient remained stable. No shortness of breath. Chest x-ray demonstrates persistent pneumothorax. Objective Vital Signs Date Time Temp Pulse Resp B/P Pulse Ox O2 Delivery O2 Flow Rate FiO2 05/15/17 08:12 81 05/15/17 07:54 18 117/74 100 05/15/17 07:52 Non Rebreather 15.0 05/15/17 00:21 98.2 Intake and Output 05/14/17 05/14/17 05/15/17 15:00 23:00 07:00 Intake Total 1800 ml Balance 1800 ml Exam GENERAL: Well-nourished well-developed young gentleman comfortable at rest no acute distress VITAL SIGNS: per chart NECK: Supple. No JVD or lymphadenopathy. CARDIAC EXAM: S1, S2. No added sounds or murmurs. CHEST: clear bilaterally, No added sounds, rales or wheezes ABDOMEN: Soft, nontender. No guarding or rebound. EXTREMITIES: No cyanosis, clubbing or edema. NEUROLOGIC: Generalized weakness. No focal deficits. Results/Medications Result Diagram: 05/12/17 0745 Medications Current Medications Morphine Sulfate (morphine) 3 mg Q4H PRN IV PAIN LEVEL 8-10 Last administered on 05/09/17 08:06; Admin Dose 3 MG; Start 05/05/17 at 23:30 Hydromorphone HCl (Dilaudid) 0.5 mg Q2H PRN IV pain Last administered on 03:08; Admin Dose 0.5 MG; Start 05/06/17 at 11:30 Lorazepam (Ativan) 1 mg Q8H PRN PO ANXIETY; Start 05/06/17 at 11:30 Diphenhydramine HCl (Benadryl) 25 mg Q6H PRN PO ITCHING Last administered on 19:55; Admin Dose 25 MG; Start 05/08/17 at 20:00 Docusate Sodium (Colace) 100 mg BID PO Last administered on 05/15/17 08:53; Admin Dose 100 MG; Start 05/09/17 at 21:00 Oxycodone/ Acetaminophen (Percocet (5/ 325)) 1 tab Q4H PRN PO PAIN LEVEL 1-5 Last administered on 05/15/17 08:54; Admin Dose 1 TAB; Start 05/09/17 at 10:00 Oxycodone/ Acetaminophen (Percocet (5/ 325)) 2 tab Q6 PRN PO SEVERE PAIN LEVEL 7-10 Last administered on 05/15/17 01:02; Admin Dose 2 TAB; Start 05/09/17 at 10:00 Ondansetron HCl (Zofran Inj) 4 mg Q4H PRN IV NAUSEA AND/OR VOMITING; Start at 17:00 Bisacodyl (Dulcolax) 10 mg DAILY PRN PO CONSTIPATION; Start 05/11/17 at 17:00 Assessment/Plan Chief Complaint/Hosp Course Assessment 1. 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 2. Recurrence of pneumothorax following chest tube removal. Chest x-ray shows persistent pneumothorax no worsening today. Plan 1. Continue high flow oxygen. 2. Repeat chest x-ray in a.m. 3. Case discussed with thoracic surgery. Will monitor if no improvement will require pigtail catheter and suction. Problems: ANABEL BECKER MD, [facility] May 15, 2017 11:12
--- NOTE | 2017-05-15 15:14 | PN ---
Date/Time of Note Date/Time of Note DATE: 05/15/17 TIME: 15:13 Assessment/Plan Lines/Catheters IV Catheter Type (from Nrsg): Saline Lock Mckeon in Place (from Nrsg): No Assessment/Plan Chief Complaint/Hosp Course SP VATS CT removed yesterday pt developed 50% PTX todays CXR unchanged will place pigtail cath per IR Continue 100 NRB O2 discussed with the pt Problems: Subjective 24 Hr Interval Summary Constitutional: improved Pain Control: mild Exam/Review of Systems Vital Signs Vitals Vital Signs Date Time Temp Pulse Resp B/P Pulse Ox O2 Delivery O2 Flow Rate FiO2 05/15/17 12:06 90 05/15/17 11:20 97.8 18 114/67 100 05/15/17 07:52 Non Rebreather 15.0 Intake and Output 05/14/17 05/14/17 05/15/17 14:59 22:59 06:59 Intake Total 1800 ml Balance 1800 ml Exam ENMT: mucosa pink and moist, nl external ears & nose, nl lips & teeth, nl nasal mucosa & septum Neck: non-tender, supple Respiratory: clear to auscultation, normal air movement Cardiovascular: nl pulses, regular rate and rhythm Gastrointestinal: nl liver, spleen, non-tender, soft Results Result Diagram: 05/12/17 0745 HARRY EDGE MD May 15, 2017 15:14
--- NOTE | 2017-05-15 15:55 | PN ---
Date/Time of Note Date/Time of Note DATE: 05/15/17 TIME: 15:54 Assessment/Plan VTE Prophylaxis VTE Prophylaxis Intervention: SCD's Lines/Catheters IV Catheter Type (from Nrs): Saline Lock Urinary Cath still in place: No Assessment/Plan Chief Complaint/Hosp Course s: 12.4 still painful right side, no sob 12.5 no sob o: Physical exam General: Patient is laying in bed and answers questions appropriately Mentation: Patient is alert and oriented 4, Head: Normocephalic atraumatic Eyes: EOMI, pupils reactive to light Neck: Supple, nontender, midline Respiratory: Clear to auscultation bilaterally Cardiovascular: regular rate, no obvious murmurs Gastrointestinal: non-tender to palpation, bowel sounds heard. Neurological: Moves all extremities spontaneously Skin: No new skin lesions Assessment/Plan 1. Recurrent spontaneous pneumothorax, s/p VATS on 05/07 - Chest tube removed, but developed new ptx, monitor per CT surgery - CT surgery on board and consultation appreciated s/p VATS with decortications and removal of adhesions and apical blebs. - Patient feeling significantly better after surgery - Pulmonology on board and recommendations appreciated." - Pain management 2. Disposition - CT surgery ordered pigtail catheter to be inserted today Problems: Exam/Review of Systems Vital Signs Vitals Vital Signs Date Time Temp Pulse Resp B/P Pulse Ox O2 Delivery O2 Flow Rate FiO2 05/15/17 15:31 97.8 67 18 153/65 96 05/15/17 07:52 Non Rebreather 15.0 Intake and Output 05/14/17 05/14/17 05/15/17 15:00 23:00 07:00 Intake Total 1800 ml Balance 1800 ml Results Result Diagram: 05/12/17 0745 Medications Medications Current Medications Morphine Sulfate (morphine) 3 mg Q4H PRN IV PAIN LEVEL 8-10 Last administered on 05/09/17 08:06; Admin Dose 3 MG; Start 05/05/17 at 23:30 Hydromorphone HCl (Dilaudid) 0.5 mg Q2H PRN IV pain Last administered on 03:08; Admin Dose 0.5 MG; Start 05/06/17 at 11:30 Lorazepam (Ativan) 1 mg Q8H PRN PO ANXIETY; Start 05/06/17 at 11:30 Diphenhydramine HCl (Benadryl) 25 mg Q6H PRN PO ITCHING Last administered on 19:55; Admin Dose 25 MG; Start 05/08/17 at 20:00 Docusate Sodium (Colace) 100 mg BID PO Last administered on 05/15/17 08:53; Admin Dose 100 MG; Start 05/09/17 at 21:00 Oxycodone/ Acetaminophen (Percocet (5/ 325)) 1 tab Q4H PRN PO PAIN LEVEL 1-5 Last administered on 05/15/17 08:54; Admin Dose 1 TAB; Start 05/09/17 at 10:00 Oxycodone/ Acetaminophen (Percocet (5/ 325)) 2 tab Q6 PRN PO SEVERE PAIN LEVEL 7-10 Last administered on 05/15/17 15:26; Admin Dose 2 TAB; Start 05/09/17 at 10:00 Ondansetron HCl (Zofran Inj) 4 mg Q4H PRN IV NAUSEA AND/OR VOMITING; Start at 17:00 Bisacodyl (Dulcolax) 10 mg DAILY PRN PO CONSTIPATION; Start 05/11/17 at 17:00 GRACIA CORDON May 15, 2017 15:55
[2017-05-16] VITALS (12 sets, daily range): BP systolic 98–117; BP diastolic 60–73; PULSE 53–80; RESP 17–20
--- NOTE | 2017-05-16 07:28 | RADRPT ---
PROCEDURE: XR Chest. CLINICAL INDICATION: pain TECHNIQUE: Single portable view of the chest was obtained COMPARISON: Yesterday FINDINGS: There is slightly decreased right-sided pneumothorax.. The heart is normal in size. There is right l ower lobe atelectasis. The heart, lungs and mediastinum are otherwise unchanged. . RPTAT: AA IMPRESSION: Slightly improved small to moderate right-sided pneumothorax. Right lower lobe atelectasis. No other significant change. .Yair Estrada MD, Date Time Electronically viewed and signed by .Yair Estrada MD, on 05/16/2017 07:27 .S/
[2017-05-16] MEDS: DOCUSATE SODIUM 100 MG CAP PO SCH ×2 (07:53→20:03)
[2017-05-16 08:33] LABS: BASOPHILS % 0.4 % (0.0-2.0); EOSINOPHILS # 0.5 10^3/ul (0.0-0.5); EOSINOPHILS % 9.5 % (0.0-7.0); HEMATOCRIT 33.9 % (42.0-52.0); HEMOGLOBIN 12.1 g/dl (14.0-18.0); LYMPHOCYTES # 1.9 10^3/ul (0.8-2.9); LYMPHOCYTES % 39.9 % (15.0-51.0); MEAN CORPUSCULAR HEMOGLOBIN 31.6 pg (29.0-33.0); MEAN CORPUSCULAR HGB CONC 35.7 g/dl (32.0-37.0); MEAN CORPUSCULAR VOLUME 88.5 fl (82.0-101.0); MEAN PLATELET VOLUME 8.9 fl (7.4-10.4); MONOCYTE # 0.5 10^3/ul (0.3-0.9); MONOCYTES % 10.7 % (0.0-11.0); NEUTROPHIL # 1.9 10^3/ul (1.6-7.5); NEUTROPHILS % 39.3 % (39.0-77.0); PLATELET COUNT 218 10^3/UL (140-415); RED BLOOD COUNT 3.83 10^6/ul (4.70-6.10); RED CELL DISTRIBUTION WIDTH 11.9 % (11.5-14.5); WHITE BLOOD COUNT 4.9 10^3/ul (4.8-10.8)
[2017-05-16 09:08] LABS: CALCIUM 9.8 mg/dl (8.4-10.2); CREATININE 0.87 mg/dl (0.61-1.24); MAGNESIUM 1.8 mg/dl (1.7-2.5); PHOSPHORUS 4.4 mg/dl (2.5-4.9); POTASSIUM 3.7 mmol/L (3.5-5.1)
--- NOTE | 2017-05-16 10:08 | CONS ---
Date/Time of Note Date/Time of Note DATE: 05/16/17 TIME: 10:06 Assessment/Plan Assessment/Plan Additional Assessment/Plan Chest x-ray from today showing pneumothorax on the right side. Slight improvement compared to x-ray done yesterday morning. Next Assessment and recommendations; 1. Patient admitted with recurrent right pneumothorax status post VATS procedure, patient developed 50% pneumothorax after chest tube was removed. There has been interval improvement in chest x-ray from today. Continue current treatment. Patient awaiting right chest pigtail catheter placement by interventional radiologist. Consultation Date/Type/Reason Admit Date/Time May 05, 2017 at 21:12 Type of Consultation: Pulmonary 24 HR Interval Summary Free Text/Dictation Patient's condition is stable. Denies any shortness of breath or chest pain. General exam; young male, awake alert, currently no distress. Exam/Review of Systems Vital Signs Vitals Vital Signs Date Time Temp Pulse Resp B/P Pulse Ox O2 Delivery O2 Flow Rate FiO2 05/16/17 08:10 55 05/16/17 07:56 98.0 17 103/60 94 05/16/17 07:36 Non Rebreather 15.0 Intake and Output 05/15/17 05/15/17 05/16/17 15:00 23:00 07:00 Intake Total 900 ml 1200 ml 500 ml Output Total 1100 ml Balance -200 ml 1200 ml 500 ml Exam HEENT exam; supple neck, no JVD. No lymphadenopathy. Midline trachea. No thyromegaly. Patient has fair dentition. Chest exam; diminished breath sounds right lung. Left lung is clear to auscultation. S1-S2 audible, no murmurs. Regular rhythm. Abdomen exam; soft, nondistended. No organomegaly. Bowel sounds audible. Extremity exam; no edema. C[employer]ER [employer]IST exam; no focal deficit. Results Result Diagram: 05/16/17 0756 05/16/17 0756 Results 24 hrs Laboratory Tests Test 05/16/17 07:56 White Blood Count 4.9 Red Blood Count 3.83 L Hemoglobin 12.1 L Hematocrit 33.9 L Mean Corpuscular Volume 88.5 Mean Corpuscular Hemoglobin 31.6 Mean Corpuscular Hemoglobin Concent 35.7 Red Cell Distribution Width 11.9 Platelet Count 218 Mean Platelet Volume 8.9 Neutrophils % 39.3 Lymphocytes % 39.9 Monocytes % 10.7 Eosinophils % 9.5 H Basophils % 0.4 Nucleated Red Blood Cells % 0.0 Neutrophils # 1.9 Lymphocytes # 1.9 Monocytes # 0.5 Eosinophils # 0.5 Basophils # 0.0 Nucleated Red Blood Cells # 0.0 Sodium Level 142 Potassium Level 3.7 Chloride Level 101 Carbon Dioxide Level 32 H Anion Gap 13 Blood Urea Nitrogen 9 Creatinine 0.87 Glucose Level 91 Calcium Level 9.8 Phosphorus Level 4.4 Magnesium Level 1.8 Medications Medications Current Medications Morphine Sulfate (morphine) 3 mg Q4H PRN IV PAIN LEVEL 8-10 Last administered on 05/09/17 08:06; Admin Dose 3 MG; Start 05/05/17 at 23:30 Hydromorphone HCl (Dilaudid) 0.5 mg Q2H PRN IV pain Last administered on 03:08; Admin Dose 0.5 MG; Start 05/06/17 at 11:30 Lorazepam (Ativan) 1 mg Q8H PRN PO ANXIETY; Start 05/06/17 at 11:30 Diphenhydramine HCl (Benadryl) 25 mg Q6H PRN PO ITCHING Last administered on 19:55; Admin Dose 25 MG; Start 05/08/17 at 20:00 Docusate Sodium (Colace) 100 mg BID PO Last administered on 05/15/17 21:00; Admin Dose 100 MG; Start 05/09/17 at 21:00 Oxycodone/ Acetaminophen (Percocet (5/ 325)) 1 tab Q4H PRN PO PAIN LEVEL 1-5 Last administered on 05/15/17 08:54; Admin Dose 1 TAB; Start 05/09/17 at 10:00 Oxycodone/ Acetaminophen (Percocet (5/ 325)) 2 tab Q6 PRN PO SEVERE PAIN LEVEL 7-10 Last administered on 05/15/17 21:48; Admin Dose 2 TAB; Start 05/09/17 at 10:00 Ondansetron HCl (Zofran Inj) 4 mg Q4H PRN IV NAUSEA AND/OR VOMITING; Start at 17:00 Bisacodyl (Dulcolax) 10 mg DAILY PRN PO CONSTIPATION; Start 05/11/17 at 17:00 LUISITO FRANCO May 16, 2017 10:08
[2017-05-16] MEDS: OXYCODONE/ACETAMINOPHEN (5/325) TAB PO PRN ×2 (11:44→20:06)
--- NOTE | 2017-05-16 15:17 | PN ---
Date/Time of Note Date/Time of Note DATE: 05/16/17 TIME: 15:16 Assessment/Plan VTE Prophylaxis VTE Prophylaxis Intervention: SCD's Lines/Catheters IV [facility]from [facility] Saline Lock Urinary Cath still in place: No Assessment/Plan Chief Complaint/Hosp Course s: 12.4 still painful right side, no sob 12.5 no sob 12.6 still no sob o: Physical exam General: Patient is laying in bed and answers questions appropriately Mentation: Patient is alert and oriented 4, Head: Normocephalic atraumatic Eyes: EOMI, pupils reactive to light Neck: Supple, nontender, midline Respiratory: Clear to auscultation bilaterally Cardiovascular: regular rate, no obvious murmurs Gastrointestinal: non-tender to palpation, bowel sounds heard. Neurological: Moves all extremities spontaneously Skin: No new skin lesions Assessment/Plan 1. Recurrent spontaneous pneumothorax, s/p VATS on 05/07 - Chest tube removed, but developed new ptx, monitor per CT surgery - CT surgery on board and consultation appreciated s/p VATS with decortications and removal of adhesions and apical blebs. - Patient feeling significantly better after surgery - Pulmonology on board and recommendations appreciated." - Pain management 2. Disposition - CT surgery ordered pigtail catheter to be inserted -IR unavailable today, will reschedule catheter for tomorrow Problems: Exam/Review of Systems Vital Signs Vitals Vital Signs Date Time Temp Pulse Resp B/P Pulse Ox O2 Delivery O2 Flow Rate FiO2 05/16/17 15:07 97.9 81 18 111/66 98 05/16/17 07:36 Non Rebreather 15.0 Intake and Output 05/15/17 05/15/17 05/16/17 15:00 23:00 07:00 Intake Total 900 ml 1200 ml 500 ml Output Total 1100 ml Balance -200 ml 1200 ml 500 ml Results Result Diagram: 05/16/17 0756 05/16/17 0756 Results 24 hrs Laboratory Tests Test 05/16/17 07:56 White Blood Count 4.9 Red Blood Count 3.83 L Hemoglobin 12.1 L Hematocrit 33.9 L Mean Corpuscular Volume 88.5 Mean Corpuscular Hemoglobin 31.6 Mean Corpuscular Hemoglobin Concent 35.7 Red Cell Distribution Width 11.9 Platelet Count 218 Mean Platelet Volume 8.9 Neutrophils % 39.3 Lymphocytes % 39.9 Monocytes % 10.7 Eosinophils % 9.5 H Basophils % 0.4 Nucleated Red Blood Cells % 0.0 Neutrophils # 1.9 Lymphocytes # 1.9 Monocytes # 0.5 Eosinophils # 0.5 Basophils # 0.0 Nucleated Red Blood Cells # 0.0 Sodium Level 142 Potassium Level 3.7 Chloride Level 101 Carbon Dioxide Level 32 H Anion Gap 13 Blood Urea Nitrogen 9 Creatinine 0.87 Glucose Level 91 Calcium Level 9.8 Phosphorus Level 4.4 Magnesium Level 1.8 Medications Medications Current Medications Morphine Sulfate (morphine) 3 mg Q4H PRN IV PAIN LEVEL 8-10 Last administered on 05/09/17 08:06; Admin Dose 3 MG; Start 05/05/17 at 23:30 Hydromorphone HCl (Dilaudid) 0.5 mg Q2H PRN IV pain Last administered on 03:08; Admin Dose 0.5 MG; Start 05/06/17 at 11:30 Lorazepam (Ativan) 1 mg Q8H PRN PO ANXIETY; Start 05/06/17 at 11:30 Diphenhydramine HCl (Benadryl) 25 mg Q6H PRN PO ITCHING Last administered on 19:55; Admin Dose 25 MG; Start 05/08/17 at 20:00 Docusate Sodium (Colace) 100 mg BID PO Last administered on 05/15/17 21:00; Admin Dose 100 MG; Start 05/09/17 at 21:00 Oxycodone/ Acetaminophen (Percocet (5/ 325)) 1 tab Q4H PRN PO PAIN LEVEL 1-5 Last administered on 05/15/17 08:54; Admin Dose 1 TAB; Start 05/09/17 at 10:00 Oxycodone/ Acetaminophen (Percocet (5/ 325)) 2 tab Q6 PRN PO SEVERE PAIN LEVEL 7-10 Last administered on 05/16/17 11:44; Admin Dose 2 TAB; Start 05/09/17 at 10:00 Ondansetron HCl (Zofran Inj) 4 mg Q4H PRN IV NAUSEA AND/OR VOMITING; Start at 17:00 Bisacodyl (Dulcolax) 10 mg DAILY PRN PO CONSTIPATION; Start 05/11/17 at 17:00 GRACIA CORDON May 16, 2017 15:17
--- NOTE | 2017-05-16 19:45 | PN ---
Date/Time of Note Date/Time of Note DATE: 05/16/17 TIME: 19:44 Assessment/Plan Lines/Catheters IV Catheter Type (from Nrsg): Saline Lock Mckeon in Place (from Nrsg): No Assessment/Plan Chief Complaint/Hosp Course SP VATS CT removed pt developed 50% PTX todays CXR Slightly improved small to moderate right-sided pneumothorax. Right lower lobe atelectasis. No other significant change. will place pigtail cath per IR discussed with the pt Problems: Subjective 24 Hr Interval Summary Constitutional: improved Pain Control: mild Exam/Review of Systems Vital Signs Vitals Vital Signs Date Time Temp Pulse Resp B/P Pulse Ox O2 Delivery O2 Flow Rate FiO2 05/16/17 16:05 80 05/16/17 15:07 97.9 18 111/66 98 05/16/17 07:36 Non Rebreather 15.0 Intake and Output 05/15/17 05/15/17 05/16/17 15:00 23:00 07:00 Intake Total 900 ml 1200 ml 500 ml Output Total 1100 ml Balance -200 ml 1200 ml 500 ml Exam Neck: non-tender, supple Respiratory: clear to auscultation, normal air movement Cardiovascular: nl pulses, regular rate and rhythm Gastrointestinal: nl liver, spleen, non-tender, soft Results Result Diagram: 05/16/17 0756 05/16/17 0756 HARRY EDGE MD May 16, 2017 19:45
[2017-05-17] VITALS (10 sets, daily range): BP systolic 100–123; BP diastolic 55–75; PULSE 54–99; RESP 16–18
[2017-05-17] MEDS: OXYCODONE/ACETAMINOPHEN (5/325) TAB PO PRN ×4 (01:05→20:04)
[2017-05-17 08:11] LABS: BASOPHILS % 0.7 % (0.0-2.0); EOSINOPHILS # 0.5 10^3/ul (0.0-0.5); EOSINOPHILS % 8.7 % (0.0-7.0); HEMATOCRIT 33.6 % (42.0-52.0); HEMOGLOBIN 11.8 g/dl (14.0-18.0); LYMPHOCYTES # 2.3 10^3/ul (0.8-2.9); LYMPHOCYTES % 40.7 % (15.0-51.0); MEAN CORPUSCULAR HEMOGLOBIN 31.3 pg (29.0-33.0); MEAN CORPUSCULAR HGB CONC 35.1 g/dl (32.0-37.0); MEAN CORPUSCULAR VOLUME 89.1 fl (82.0-101.0); MEAN PLATELET VOLUME 9.1 fl (7.4-10.4); MONOCYTE # 0.5 10^3/ul (0.3-0.9); MONOCYTES % 9.8 % (0.0-11.0); NEUTROPHIL # 2.2 10^3/ul (1.6-7.5); NEUTROPHILS % 40.1 % (39.0-77.0); PLATELET COUNT 212 10^3/UL (140-415); RED BLOOD COUNT 3.77 10^6/ul (4.70-6.10); RED CELL DISTRIBUTION WIDTH 11.9 % (11.5-14.5); WHITE BLOOD COUNT 5.5 10^3/ul (4.8-10.8)
[2017-05-17 08:30] LABS: CALCIUM 9.6 mg/dl (8.4-10.2); CREATININE 0.91 mg/dl (0.61-1.24); MAGNESIUM 1.8 mg/dl (1.7-2.5); PHOSPHORUS 4.4 mg/dl (2.5-4.9); POTASSIUM 3.8 mmol/L (3.5-5.1)
[2017-05-17] MEDS: DOCUSATE SODIUM 100 MG CAP PO SCH ×2 (09:00→20:03)
--- NOTE | 2017-05-17 10:03 | PN ---
Date/Time of Note Date/Time of Note DATE: 05/17/17 TIME: 10:02 Assessment/Plan Lines/Catheters IV Catheter Type (from Nrsg): Saline Lock Mckeon in Place (from Nrsg): No Assessment/Plan Chief Complaint/Hosp Course SP VATS CT removed pt developed 50% PTX todays CXR Slightly improved small to moderate right-sided pneumothorax. Right lower lobe atelectasis. No other significant change. will place pigtail cath per IR today discussed with the pt Problems: Subjective 24 Hr Interval Summary Constitutional: improved Pain Control: mild Exam/Review of Systems Vital Signs Vitals Vital Signs Date Time Temp Pulse Resp B/P Pulse Ox O2 Delivery O2 Flow Rate FiO2 05/17/17 08:00 54 05/17/17 07:29 97.7 16 100/55 100 05/16/17 07:36 Non Rebreather 15.0 Intake and Output 05/16/17 05/16/17 05/17/17 15:00 23:00 07:00 Intake Total 100 ml 400 ml Balance 100 ml 400 ml Exam Neck: non-tender, supple Respiratory: clear to auscultation, normal air movement Cardiovascular: nl pulses, regular rate and rhythm Gastrointestinal: nl liver, spleen, non-tender, soft Results Result Diagram: 05/17/17 0705/17/17706 HARRY EDGE MD May 17, 2017 10:03
--- NOTE | 2017-05-17 10:58 | CONS ---
Date/Time of Note Date/Time of Note DATE: 05/17/17 TIME: 10:57 Consult Date/Type/Reason Admit Date/Time May 05, 2017 at 21:12 Type of Consultation: Pulmonary Subjective Patient sleeping this morning appears comfortable no events overnight. Objective Vital Signs Date Time Temp Pulse Resp B/P Pulse Ox O2 Delivery O2 Flow Rate FiO2 05/17/17 08:00 54 05/17/17 07:29 97.7 16 100/55 100 05/16/17 07:36 Non Rebreather 15.0 Intake and Output 05/16/17 05/16/17 05/17/17 14:59 22:59 06:59 Intake Total 100 ml 400 ml Balance 100 ml 400 ml Exam GENERAL: Well-nourished well-developed gentleman comfortable at rest VITAL SIGNS: per chart NECK: Supple. No JVD or lymphadenopathy. CARDIAC EXAM: S1, S2. No added sounds or murmurs. CHEST: Diminished air entry right apex ABDOMEN: Soft, nontender. No guarding or rebound. EXTREMITIES: No cyanosis, clubbing or edema. NEUROLOGIC: Generalized weakness. No focal deficits. Results/Medications Result Diagram: 05/17/1770605/17/1707 Results 24 hrs Laboratory Tests Test 05/17/17 07:07 White Blood Count 5.5 Red Blood Count 3.77 L Hemoglobin 11.8 L Hematocrit 33.6 L Mean Corpuscular Volume 89.1 Mean Corpuscular Hemoglobin 31.3 Mean Corpuscular Hemoglobin Concent 35.1 Red Cell Distribution Width 11.9 Platelet Count 212 Mean Platelet Volume 9.1 Neutrophils % 40.1 Lymphocytes % 40.7 Monocytes % 9.8 Eosinophils % 8.7 H Basophils % 0.7 Nucleated Red Blood Cells % 0.0 Neutrophils # 2.2 Lymphocytes # 2.3 Monocytes # 0.5 Eosinophils # 0.5 Basophils # 0.0 Nucleated Red Blood Cells # 0.0 Sodium Level 142 Potassium Level 3.8 Chloride Level 103 Carbon Dioxide Level 30 Anion Gap 13 Blood Urea Nitrogen 13 Creatinine 0.91 Glucose Level 82 Calcium Level 9.6 Phosphorus Level 4.4 Magnesium Level 1.8 Medications Current Medications Morphine Sulfate (morphine) 3 mg Q4H PRN IV PAIN LEVEL 8-10 Last administered on 05/09/17t 08:06; Admin Dose 3 MG; Start 05/05/17 at 23:30 Hydromorphone HCl (Dilaudid) 0.5 mg Q2H PRN IV pain Last administered on 03:08; Admin Dose 0.5 MG; Start 05/06/17 at 11:30 Lorazepam (Ativan) 1 mg Q8H PRN PO ANXIETY; Start 05/06/17 at 11:30 Diphenhydramine HCl (Benadryl) 25 mg Q6H PRN PO ITCHING Last administered on 19:55; Admin Dose 25 MG; Start 05/08/17 at 20:00 Docusate Sodium (Colace) 100 mg BID PO Last administered on 05/16/17 20:03; Admin Dose 100 MG; Start 05/09/17 at 21:00 Oxycodone/ Acetaminophen (Percocet (5/ 325)) 1 tab Q4H PRN PO PAIN LEVEL 1-5 Last administered on 05/16/17 20:06; Admin Dose 1 TAB; Start 05/09/17 at 10:00 Oxycodone/ Acetaminophen (Percocet (5/ 325)) 2 tab Q6 PRN PO SEVERE PAIN LEVEL 7-10 Last administered on 05/17/17 01:05; Admin Dose 2 TAB; Start 05/09/17 at 10:00 Ondansetron HCl (Zofran Inj) 4 mg Q4H PRN IV NAUSEA AND/OR VOMITING; Start at 17:00 Bisacodyl (Dulcolax) 10 mg DAILY PRN PO CONSTIPATION; Start 05/11/17 at 17:00 Assessment/Plan Chief Complaint/Hosp Course Assessment 1. 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 2. Recurrence of pneumothorax following chest tube removal. Chest x-ray shows slight improvement. Plan 1. Continue high flow oxygen. 2. Repeat chest x-ray in a.m. 3. Pigtail catheter placement today. Problems: ANABEL BECKER MD, [facility] May 17, 2017 10:58
[2017-05-17] MEDS ORDERED: LIDOCAINE 1% (MDV) 20 ML INJ ONE ×2 (11:58→12:06)
[2017-05-17] MEDS ORDERED: SOD CHLORIDE 0.9% 500 ML ONE ×2 (12:06→15:07)
[2017-05-17] MEDS ORDERED: FENTAnyl 50 MCG/ML VIAL ONE (12:06)
[2017-05-17] MEDS ORDERED: MIDAZOLAM 1 MG/ML 2 ML INJ ONE (12:06)
--- NOTE | 2017-05-17 14:00 | RADRPT ---
PROCEDURE: Fluoroscopic guided placement of right chest tube. CLINICAL INDICATION: Right pneumothorax. Shortness of breath. TECHNIQUE: Informed consent was obtained. The procedure, risks, benefits, complications and alternatives were explained to the patient. Risks including bleeding, infection, and pneumothorax were explained. The patient understood and was willing to proceed. A procedural pause was performed. The patient's name, date of , and procedure to be performed w ere verified. The right anterior/superior chest wall were prepped and draped in usual sterile fashion. Following the local injection of 1% lidocaine, a 19-gauge Yueh needle was advanced into the right pl eural space in the midclavicular line at the 3-4 interspace with fluoroscopic guidance. The Yueh met al needle was removed leaving the plastic outer cannula in position. A 0.035 inch guidewire was adv anced into the right pleural space through the plastic cannula with fluoroscopic guidance. The plas tic cannula was removed. The tract was dilated to 8-Chinese. An 8.5 Chinese multipurpose drainage ca theter was then advanced over the guide wire. The guidewire was removed. Fluoroscopic guidance dem onstrates the catheter in satisfactory position within the pleural space. The catheter was sutured to the patient's skin with 2-0 silk suture. A dressing was applied. The patient tolerated procedure well. A Heimlich valve was attached to the end of the chest tube. COMPARISON: Chest x-ray done earlier the same day. FINDINGS: Final images demonstrate the tip of the catheter in the upper right pleural space. A total of 0.2 m inutes of fluoroscopy time was used. 5 images of the chest were obtained with image intensifier. IMPRESSION: 1. Successful fluoroscopic guided placement of right chest tube. RPTAT: QQ .Patrick Marie MD, MD Date Time Electronically viewed and signed by .Patrick Marie MD, MD on 05/17/2017 13:59 .R/
--- NOTE | 2017-05-17 14:23 | PN ---
Date/Time of Note Date/Time of Note DATE: 05/17/17 TIME: 14:23 Assessment/Plan VTE Prophylaxis VTE Prophylaxis Intervention: ambulation Lines/Catheters IV Catheter Type (from [facility]): Saline Lock Urinary Cath still in place: No Assessment/Plan Chief Complaint/Hosp Course s: 12.4 still painful right side, no sob 12.5 no sob 12.6 still no sob 12.7 chest tube placement today, no acute complaints o: Physical exam General: Patient is laying in bed and answers questions appropriately Mentation: Patient is alert and oriented 4, Head: Normocephalic atraumatic Eyes: EOMI, pupils reactive to light Neck: Supple, nontender, midline Respiratory: Clear to auscultation bilaterally Cardiovascular: regular rate, no obvious murmurs Gastrointestinal: non-tender to palpation, bowel sounds heard. Neurological: Moves all extremities spontaneously Skin: No new skin lesions Assessment/Plan 1. Recurrent spontaneous pneumothorax, s/p VATS on 05/07 - Chest tube removed, but developed new ptx, monitor per CT surgery - CT surgery on board and consultation appreciated s/p VATS with decortications and removal of adhesions and apical blebs. - Patient feeling significantly better after surgery - Pulmonology on board and recommendations appreciated." - Pain management 2. Disposition - CT surgery ordered pigtail catheter to be inserted -chest tube placed today Problems: Exam/Review of Systems Vital Signs Vitals Vital Signs Date Time Temp Pulse Resp B/P Pulse Ox O2 Delivery O2 Flow Rate FiO2 05/17/17 13:47 93 05/17/17 07:29 97.7 16 100/55 100 05/16/17 07:36 Non Rebreather 15.0 Intake and Output 05/16/17 05/16/17 05/17/17 14:59 22:59 06:59 Intake Total 100 ml 400 ml Balance 100 ml 400 ml Results Result Diagram: 05/17/17 0707 05/17/17 0707 Results 24 hrs Laboratory Tests Test 05/17/17 07:07 White Blood Count 5.5 Red Blood Count 3.77 L Hemoglobin 11.8 L Hematocrit 33.6 L Mean Corpuscular Volume 89.1 Mean Corpuscular Hemoglobin 31.3 Mean Corpuscular Hemoglobin Concent 35.1 Red Cell Distribution Width 11.9 Platelet Count 212 Mean Platelet Volume 9.1 Neutrophils % 40.1 Lymphocytes % 40.7 Monocytes % 9.8 Eosinophils % 8.7 H Basophils % 0.7 Nucleated Red Blood Cells % 0.0 Neutrophils # 2.2 Lymphocytes # 2.3 Monocytes # 0.5 Eosinophils # 0.5 Basophils # 0.0 Nucleated Red Blood Cells # 0.0 Sodium Level 142 Potassium Level 3.8 Chloride Level 103 Carbon Dioxide Level 30 Anion Gap 13 Blood Urea Nitrogen 13 Creatinine 0.91 Glucose Level 82 Calcium Level 9.6 Phosphorus Level 4.4 Magnesium Level 1.8 Medications Medications Current Medications Morphine Sulfate (morphine) 3 mg Q4H PRN IV PAIN LEVEL 8-10 Last administered on 05/09/17 08:06; Admin Dose 3 MG; Start 05/05/17 at 23:30 Hydromorphone HCl (Dilaudid) 0.5 mg Q2H PRN IV pain Last administered on 03:08; Admin Dose 0.5 MG; Start 05/06/17 at 11:30 Lorazepam (Ativan) 1 mg Q8H PRN PO ANXIETY; Start 05/06/17 at 11:30 Diphenhydramine HCl (Benadryl) 25 mg Q6H PRN PO ITCHING Last administered on 19:55; Admin Dose 25 MG; Start 05/08/17 at 20:00 Docusate Sodium (Colace) 100 mg BID PO Last administered on 05/16/17 20:03; Admin Dose 100 MG; Start 05/09/17 at 21:00 Oxycodone/ Acetaminophen (Percocet (5/ 325)) 1 tab Q4H PRN PO PAIN LEVEL 1-5 Last administered on 05/16/17 20:06; Admin Dose 1 TAB; Start 05/09/17 at 10:00 Oxycodone/ Acetaminophen (Percocet (5/ 325)) 2 tab Q6 PRN PO SEVERE PAIN LEVEL 7-10 Last administered on 05/17/17 01:05; Admin Dose 2 TAB; Start 05/09/17 at 10:00 Ondansetron HCl (Zofran Inj) 4 mg Q4H PRN IV NAUSEA AND/OR VOMITING; Start at 17:00 Bisacodyl (Dulcolax) 10 mg DAILY PRN PO CONSTIPATION; Start 05/11/17 at 17:00 GRACIA CORDON May 17, 2017 14:23
--- NOTE | 2017-05-17 18:08 | PDOCDIS ---
Discharge Instructions DIAGNOSIS Discharge Diagnosis Recurrent spontaneous pneumothorax, s/p VATS on 05/07 CONDITION Patient Condition: Guarded HOME CARE INSTRUCTIONS: Diet Instructions: Regular ACTIVITY: Activity Restrictions: No Restrictions FOLLOW UP/APPOINTMENTS Follow-up Plan 1. Follow up with your primary care physician in 1 week 2. Follow up with Dr. Hernández in 1 week for repeat CXR and possible drain removal 3. If symptoms worsen, please return to the ED. GRACIA CORDON May 17, 2017 18:08
--- NOTE | 2017-05-17 18:31 | RADRPT ---
PROCEDURE: XR Chest. CLINICAL INDICATION: pneumothorax TECHNIQUE: Single frontal view of the chest was obtained COMPARISON: 05/16/2017 FINDINGS: There has been interval placement of a pigtail catheter in the superior right hemithorax. The previously noted right pneumothorax has dramatically improved and nearly resolved. A very trace pneumothorax persists. The cardiac silhouette is unremarkable. The lungs are clear. There is persistent mild blunting of the right costophrenic angle. The left pleural space is clear. The bones and soft tissue show no acute change. IMPRESSION: Interval placement of a pigtail catheter in the superior right hemithorax with near-complete resolut ion of the previously noted right pneumothorax. A very small trace of pneumothorax persists. RPTAT:AAJJ Physician Matthew Date Time Electronically viewed and signed by Physician Matthew on 05/17/2017 18:31 /
[2017-05-18 00:21] VITALS: BP 123/60; RESP 18
[2017-05-18 00:27] VITALS: PULSE 93
[2017-05-18] MEDS: OXYCODONE/ACETAMINOPHEN (5/325) TAB PO PRN ×2 (02:14→08:27)
[2017-05-18 03:45] VITALS: BP 116/60; RESP 18
[2017-05-18 04:18] VITALS: PULSE 81
--- NOTE | 2017-05-18 06:55 | RADRPT ---
PROCEDURE: XR Chest. CLINICAL INDICATION: Pneumothorax TECHNIQUE: A single AP view of the chest was obtained. COMPARISON: CHEST 05/17/2017; CHEST 05/16/2017; CHEST 05/15/2017; CHEST 05/14/2017 FINDINGS: There is a right pleural pigtail catheter in place. There is a trace residual right apical pneumothorax. The cardiomediastinal silhouette is within nor mal limits for size. The osseous structures are unremarkable. IMPRESSION: Trace right apical pneumothorax. No significant interval change. A right pleural pigtail catheter re kristen in place. RPTAT: HH .Vikki Durant MD, MD Date Time Electronically viewed and signed by .Vikki uDrant MD, on 05/18/2017 06:46 .G/
[2017-05-18 07:49] VITALS: BP 101/63; RESP 18
[2017-05-18 08:23] VITALS: PULSE 57
[2017-05-18 08:58] LABS: BASOPHILS % 0.6 % (0.0-2.0); EOSINOPHILS # 0.4 10^3/ul (0.0-0.5); EOSINOPHILS % 7.6 % (0.0-7.0); HEMATOCRIT 33.2 % (42.0-52.0); HEMOGLOBIN 11.8 g/dl (14.0-18.0); LYMPHOCYTES # 1.8 10^3/ul (0.8-2.9); LYMPHOCYTES % 37.3 % (15.0-51.0); MEAN CORPUSCULAR HEMOGLOBIN 31.6 pg (29.0-33.0); MEAN CORPUSCULAR HGB CONC 35.5 g/dl (32.0-37.0); MONOCYTE # 0.4 10^3/ul (0.3-0.9); MONOCYTES % 8.6 % (0.0-11.0); NEUTROPHIL # 2.2 10^3/ul (1.6-7.5); NEUTROPHILS % 45.7 % (39.0-77.0); PLATELET COUNT 218 10^3/UL (140-415); RED BLOOD COUNT 3.73 10^6/ul (4.70-6.10); RED CELL DISTRIBUTION WIDTH 11.7 % (11.5-14.5); WHITE BLOOD COUNT 4.9 10^3/ul (4.8-10.8)
[2017-05-18 09:32] LABS: CALCIUM 9.8 mg/dl (8.4-10.2); CREATININE 0.87 mg/dl (0.61-1.24); MAGNESIUM 1.7 mg/dl (1.7-2.5); PHOSPHORUS 4.8 mg/dl (2.5-4.9); POTASSIUM 4.5 mmol/L (3.5-5.1)
[2017-05-18] MEDS: DOCUSATE SODIUM 100 MG CAP PO SCH (09:33)
[2017-05-18] MEDS ORDERED: OXYC-438 PO (10:18)
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
== END 2017-05-18 11:25 | disposition home or self-care (01) | DRG 163 ==
LOC: E/R 18:16 → TEL 21:12 → ICU 05-07 21:42 → TEL 05-09 11:25
PROVIDERS: ADMIT Internal Medicine; ATTEND Internal Medicine
PROC: 0BBC4ZX Excision of Right Upper Lung Lobe, Percutaneous Endoscopic Approach, Diagnostic (ICD-10-PCS; 2017-05-07)
PROC: 0BC Respiratory System, Extirpation (ICD-10-PCS; principal; 2017-05-07 18:00)
DX: J93.83 Other pneumothorax (principal); J86.0 Pyothorax with fistula; J98.11 Atelectasis; R00.0 Tachycardia, unspecified; F12.10 Cannabis abuse, uncomplicated; Z97.8 Presence of other specified devices
CPT/HCPCS: 36415; 71010; 71020; 75982; 80048; 80053; 83735; 84100; 84484; 85025; 85610; 85730; 86850; 86900; 86901; 87081; 88309; 88313; 93005; 94770; 96374; 96375; J0690; J1100; J1170; J1200; J1644; J1956; J2250; J2270; J2274; J2405; J2710; J3010; J7040

== ENCOUNTER 2017-05-28 13:10 | Emergency (ER) | payer SELFPAY ==
[~2017-05-28] VITALS: Ht 172.7 cm; Wt 56.7 kg
[~2017-05-28 13:10] MED LIST changes: -HYDR-3498 PO; +OXYC-438 PO
[2017-05-28 13:28] VITALS: Ht 172.7 cm; Wt 56.7 kg
== END 2017-05-28 20:11 | disposition left against medical advice (07) ==
LOC: E/R 13:10
DX: Z53.21 Procedure and treatment not carried out due to patient leaving prior to being seen by health care provider (principal)

== ENCOUNTER 2017-06-01 14:27 | Emergency (ER) | payer OTHER ==
[~2017-06-01] VITALS: Ht 172.7 cm; Wt 56.9 kg
[2017-06-01 14:29] VITALS: Ht 172.7 cm; Wt 56.9 kg
--- NOTE | 2017-06-01 15:35 | ERD ---
ER Documentation Chief Complaint Chief Complaint PT SENT PER DR HERNÁNDEZ FOR CHEST TUBE REMOVAL HPI 21-year-old man here for Heimlich valve removal status post spontaneous tension pneumothorax. Valve was placed in his right anterior chest about 3 weeks ago. He states he has had intermittent chest pain, but has been using opioid analgesics at home to help relieve the pain. He denies cough, no shortness of breath, no exertional pain, no fevers or chills. ROS All systems reviewed and are negative except as per history of present illness. Medications Home Meds Active Scripts Ibuprofen* (Ibuprofen*) 600 Mg Tablet, 600 MG PO Q8 for PAIN AND/OR INFLAMMATION , #30 TAB Prov:GRACIA MACEKNZIE MD 06/01/17 Oxycodone HCl/Acetaminophen (Oxycodone-Acetaminophen 5-325) 1 Each Tablet, 1 TAB PO Q8 Y for PAIN LEVEL 1-5 for 7 Days, #21 TAB Prov:GRACIA CORDON 05/18/17 Allergies Allergies: Coded Allergies: No Known Allergy (Unverified , 06/01/17) PMhx/Soc Recent tension pneumothorax treated with right chest Heimlich valve placement History of Surgery: No Anesthesia Reaction: No Hx Neurological Disorder: No Hx Respiratory Disorders: Yes (PNEUMOTHORAX W/ CHEST TUBE) Hx Cardiac Disorders: No Hx Psychiatric Problems: No Hx Miscellaneous Medical Probl: No Hx Alcohol Use: Yes (AT TIMES) Hx Substance Use: Yes (MARIJUANA 2 MONTHS AGO) Hx Tobacco Use: No FmHx Family History: No diabetes Physical Exam Vitals Vital Signs Date Time Temp Pulse Resp B/P Pulse Ox O2 Delivery O2 Flow Rate FiO2 06/01/17 17:20 98.5 75 18 103/73 100 Room Air 06/01/17 15:30 98.7 67 16 111/57 100 Room Air 06/01/17 14:29 98.4 79 18 120/79 100 Physical Exam GENERAL: Well-developed, well-nourished, well-hydrated, in no apparent distress , looks nontoxic in appearance HEENT: Moist mucous membranes, pink conjunctiva, no cervical spine tenderness or step-off deformities, no goiter, no jaundice or icterus, extraocular movements intact without pain. No submandibular induration, and no pharyngeal erythema NEURO: Alert and oriented 3, cranial nerves II through XII intact bilaterally, pupils equal round reactive to light, no focal deficits or facial asymmetry, sensation intact distally Strength 5/5 in upper and lower extremities bilaterally CARDIAC: Regular rate and rhythm, no murmurs rubs or gallops LUNGS: Clear bilaterally no wheezing crackles or stridor ABDOMEN: Soft nontender, no guarding, no rigidity, no rebound, no psoas sign no obturator sign. Normoactive bowel sounds SKIN: Warm and dry to touch, no abrasions, contusions, or hematomas, no lacerations, no ecchymosis, no target lesions, and without ulcers EXTREMITIES: No clubbing cyanosis or edema, calves are bilaterally symmetrical, no Homans sign, no popliteal cord sign. Distal pulses equal and bilateral PSYCH: Normal affect without agitation or irritability Procedures/MDM One view chest x-ray performed, read by me reveals a Heimlich valve in place, there is full lung expansion bilaterally, no pneumothorax, no infiltrates. I consulted his cardiothoracic surgeon Dr. Hernández who saw and evaluated the patient, he removed the Heimlich valve and tubing. Patient was observed in the emergency department after tube removal, his pulse remained normal, patient had no complaints of pain, and oxygen saturation was 100% and normal. Patient feels much better at this time, and vital signs are normal, symptoms have improved. I did give strict instructions to return to the ED if symptoms continue or worsen, patient will otherwise follow-up with primary care physician. Patient understood instructions and agreed to plan. Disclaimer: Inadvertent spelling and grammatical errors are likely due to EHR/ dictation software use and do not reflect on the overall quality of patient care. Also, please note that the electronic time recorded on this note does not necessarily reflect the actual time of the patient encounter. Departure Diagnosis: Primary Impression: Encounter for chest tube removal Additional Impression: Postoperative pain Condition: Good GRACIA MACKENZIE MD Jun 01, 2017 15:35
--- NOTE | 2017-06-01 16:02 | RADRPT ---
PROCEDURE: XR Chest. CLINICAL INDICATION: Shortness of breath. Chest pain. History of right pneumothorax. TECHNIQUE: Single frontal view. COMPARISON: 05/18/2017. FINDINGS: As seen previously, there is a pigtail right chest tube in satisfactory position oriented vertically with the pigtail looped in the right apical region. The lungs are clear. The heart size is normal. There is no pleural effusion. There is no pneumothorax. IMPRESSION: 1. Right pigtail chest tube in satisfactory position. 2. No pneumothorax. 3. Otherwise unremarkable chest radiograph. RPTAT: QQ .Patrick Marie MD, MD Date Time Electronically viewed and signed by .Patrick Marie MD, MD on 06/01/2017 16:02 .R/
[2017-06-01] MEDS ORDERED: IBUP-1542 PO (16:29)
[2017-06-01 17:20] VITALS: BP 103/73; PULSE 75; RESP 18; TEMP 98.5
== END 2017-06-01 17:35 | disposition home or self-care (01) ==
LOC: E/R 14:27
DX: G89.18 Other acute postprocedural pain (principal); Z46.82 Encounter for fitting and adjustment of non-vascular catheter
CPT/HCPCS: 71010; Z7502

== ENCOUNTER 2018-01-22 01:54 | Emergency (ER) | END 2018-01-22 04:46 | disposition home or self-care (01) ==

== ENCOUNTER 2018-05-24 00:03 | Emergency (ER) | END 2018-05-24 02:35 | disposition home or self-care (01) ==

== ENCOUNTER 2018-06-20 02:37 | Emergency (ER) | payer OTHER ==
[~2018-06-20] VITALS: Wt 69.0 kg
[~2018-06-20 02:37] MED LIST changes: +BACI28.34 TOP; +CEPH-443 PO; +IBUP-1542 PO; +SULF1TAB31 PO
[2018-06-20 02:39] VITALS: BP 126/79; PULSE 67; RESP 18
[2018-06-20] MEDS ORDERED: IBUP-1542 PO (04:36)
--- NOTE | 2018-06-20 04:41 | ERD ---
ER Documentation Chief Complaint Chief Complaint BACK PAIN X'S 1 DAY HPI This is a 22-year-old male presents ED with complaints of left upper back pain after he was helping his dad move furniture earlier today. Patient is concerned because he has history of a pneumothorax and he wants to make sure he does not have a pneumothorax again. Patient is requesting his chest x-ray. Denies chest pain, shortness breath, trouble breathing, pleuritic chest pain, fever, chills, bowel/bladder incontinence, tingling, numbness, lack sensation, saddle paresthesias, and other symptoms. ROS All systems reviewed and are negative except as per history of present illness. Medications Home Meds Active Scripts Ibuprofen* (Motrin*) 600 Mg Tab, 600 MG PO Q6, #30 TAB Prov:MACKENZIE DAUGHERTY PA-C 06/20/18 Bacitracin* (Bacitracin Zinc Oint*) 28.35 Gm Oint, 1 APPLIC TOP BID, #1 TUB APPLI TO Prov:ANGEL GUAJARDO PA-C 05/24/18 Ibuprofen* (Motrin*) 600 Mg Tab, 600 MG PO Q6, #30 TAB Prov:ANGEL GUAJARDO PA-C 05/24/18 Sulfamethoxazole/Trimethoprim* (Bactrim Ds* Tablet) 1 Each Tablet, 1 TAB PO BID, #14 TAB Prov:ANGEL GUAJARDO PA-C 05/24/18 Cephalexin* (Keflex*) 500 Mg Capsule, 500 MG PO QID for 7 Days, CAP Prov:ANGEL GUAJARDO PA-C 05/24/18 Ibuprofen* (Motrin*) 600 Mg Tab, 600 MG PO Q6H PRN for PAIN AND OR ELEVATED TEMP, #30 TAB Prov:HELDER TOLEDO NP 01/22/18 Ibuprofen* (Ibuprofen*) 600 Mg Tablet, 600 MG PO Q8 for PAIN AND/OR INFLAMMATION, #30 TAB Prov:GRACIA MACKENZIE MD 06/01/17 Oxycodone HCl/Acetaminophen (Oxycodone-Acetaminophen 5-325) 1 Each Tablet, 1 TAB PO Q8 PRN for PAIN LEVEL 1-5 for 7 Days, #21 TAB Prov:GRACIA CORDON 05/18/17 Allergies Allergies: Coded Allergies: No Known Allergy (Unverified , 06/01/17) PMhx/Soc History of Surgery: Yes (VATS) Anesthesia Reaction: No Hx Neurological Disorder: No Hx Respiratory Disorders: Yes (PNEUMOTHORAX-RIGHT) Hx Cardiac Disorders: No Hx Psychiatric Problems: No Hx Miscellaneous Medical Probl: No Hx Alcohol Use: Yes (social) Hx Substance Use: Yes (marijuana) Hx Tobacco Use: No Smoking Status: Former smoker FmHx Family History: No diabetes Physical Exam Vitals Vital Signs Date Temp Pulse Resp B/P (MAP) Pulse Ox O2 O2 Flow FiO2 Time Delivery Rate 06/20/18 96.8 67 18 126/79 98 02:39 (95) Physical Exam Const: No acute distress Head: Atraumatic Eyes: Normal Conjunctiva ENT: Normal External Ears, Nose and Mouth. Neck: Full range of motion. No meningismus. Resp: Clear to auscultation bilaterally with no wheezes rhonchi rales, no labored breathing, no respiratory distress, Cardio: Regular rate and rhythm, no murmurs Neur: Awake and alert Psych: Normal Mood and Affect back Back:, No midline tenderness, there is mild tenderness palpation along the paravertebral muscles in the left thoracic spine, no step-off deformities, Results 24 hrs Current Medications Medications Dose Sig/Jackeline Start Time Status Last (Trade) Ordered Route PRN Stop Time Admin Dose Reason Admin 10 mg ONCE ONCE 06/20/18 Cyclobenzapri PO 05:00 ne HCl 06/20/18 05:01 (Flexeril) Ibuprofen 600 mg ONCE ONCE 06/20/18 (Motrin) PO 05:00 06/20/18 05:01 Procedures/[place] [id number] Radiology Main Line: [phone] DIAGNOSTIC IMAGING REPORT Patient: BETTY RUBIO : 1995 Age: 22 Sex: M MR #: [id number] DOS: 06/20/18 0407 Ordering MD: MACKENZIE DAUGHERTY PA-C Location: E Room/Bed: PROCEDURE: CHEST - 2 VIEW CLINICAL INDICATION: 22-year-old male with back pain. TECHNIQUE: PA and lateral views of the chest were performed. The images were reviewed on a PACS workstation. COMPARISON: DR TRAORE 01/22/2018 FINDINGS: The cardiomediastinal silhouette has a normal appearance. The inferior aspect of the left lower lateral chest wall is incompletely visualized on the frontal projection. There is no evidence for an infiltrate. The pulmonary vascularity is within normal limits. There is no evidence for pneumothorax or pneumomediastinum. The osseous structures are intact. IMPRESSION: No evidence for active cardiopulmonary disease. .Zia Olsen MD, MD Date Time Electronically viewed and signed by .Zia Olsen MD, on 06/20/2018 04:27 .M/ CC: MACKENZIE DAUGHERTY PA-C [phone] ER COURSE: The patient was given Flexeril and ibuprofen The medication was well tolerated and the patient reports improvement in symptoms. The patient was stable throughout ED course. I kept the patient and/or family informed of laboratory and diagnostic imaging results throughout the emergency room course. The patient was promptly evaluated and a treatment plan was devised based on H&P and other data. This plan was discussed with the patient who agreed and had no further questions or concerns prior to discharge. MEDICAL DECISION MAKIN-year-old male presents ED with left upper back pain. X-rays are unremarkable. Given mechanism of injury and location of back pain being along the paravertebral muscles this is likely a muscle strain or muscle related pain. History and physical examination other data not consistent with processing including pneumothorax, tension pneumothorax, pneumonia, pleural effusion, hemothorax, cauda equina syndrome, cord compression, infiltrative etiology, infectious etiology, epidural abscess, fracture, obstructive pyelonephritis, abdominal aortic aneurysm. Vitals are stable and patient can be managed outpatient with close follow-up. Advised patient to follow up with primary care in the next 48 hours. return to ED with any worsening symptoms DISPOSITION PLAN: We discussed follow up with the patient's primary care doctor within 24 to 48 hours. Patient counseled regarding my diagnostic impression and care plan. Dorys or to discharge all questions answered. Pt agrees with treatment plan and understands strict return precautions. Precautionary instructions provided including instructions to return to the ER if not improving or for any worsening or changing symptoms or concerns. SPECIALIST FOLLOW UP RECOMMENDED: None Patient has been advised to follow up with primary care in 1-2 days. Disclaimer: Inadvertent spelling and grammatical errors are likely due to EHR/dictation software use and do not reflect on the overall quality of patient care. Also, please note that the electronic time recorded on this note does not necessarily reflect the actual time of the patient encounter. Departure Diagnosis: Primary Impression: Upper back strain Encounter type: initial encounter Qualified Codes: S29.012A - Strain of muscle and tendon of back wall of thorax, initial encounter Condition: Stable Patient Instructions: Back Sprain/Strain Referrals: [facility] [place] YOU HAVE RECEIVED A MEDICAL SCREENING EXAM AND THE RESULTS INDICATE THAT YOU DO NOT HAVE A CONDITION THAT REQUIRES URGENT TREATMENT IN THE EMERGENCY DEPARTMENT. FURTHER EVALUATION AND TREATMENT OF YOUR CONDITION CAN WAIT UNTIL YOU ARE SEEN IN YOUR DOCTORS OFFICE WITHIN THE NEXT 1-2 DAYS. IT IS YOUR RESPONSIBILITY TO MAKE AN APPOINTMENT FOR FOLOW-UP CARE. IF YOU HAVE A PRIMARY DOCTOR --you should call your primary doctor and schedule an appointment IF YOU DO NOT HAVE A PRIMARY DOCTOR YOU CAN CALL OUR PHYSICIAN REFERRAL HOTLINE AT IF YOU CAN NOT AFFORD TO SEE A PHYSICIAN YOU CAN CHOSE FROM THE FOLLOWING [facility] [address] [facility]. [facility] [address] [facility]. [facility] [address] [facility] [facility] [address] [facility]. [facility] [address] [facility]. [facility]. [address] Additional Instructions: Patient advised to return to the ED immediately for new or worsening symptoms. Patient advised to follow up with primary care provider in the next 24-48 hours. Patient verbalized understanding and agrees with treatment plan and course of action. If patient has no primary care they may follow up with one of the critical access hospital clinics listed on the following page or one of the options listed below [facility] + [address] [address] or [facility] [address] [place] [address] or [facility] [address] [place] [address] MACKENZIE DAUGHERTY PA-C Jun 20, 2018 04:41
[2018-06-20] MEDS ORDERED: CYCLOBENZAPRINE 10 MG TAB PO ONE (05:00)
[2018-06-20] MEDS ORDERED: IBUPROFEN 600 MG TAB PO ONE (05:00)
== END 2018-06-20 04:43 | disposition home or self-care (01) ==
LOC: FTE 02:37
DX: S29.012A Strain of muscle and tendon of back wall of thorax, initial encounter (principal); M54.6 Pain in thoracic spine; X50.0XXA Overexertion from strenuous movement or load, initial encounter; Z87.891 Personal history of nicotine dependence
CPT/HCPCS: 71046; Z7502; Z7610; 99283

== ENCOUNTER 2018-08-07 23:20 | Emergency (ER) | payer SELFPAY | END 2018-08-07 23:53 | disposition left against medical advice (07) | LOC: E/R 23:20 | DX: Z53.21 Procedure and treatment not carried out due to patient leaving prior to being seen by health care provider (principal) ==

== ENCOUNTER 2018-08-09 21:32 | Emergency (ER) | payer OTHER ==
[~2018-08-09] VITALS: Ht 172.7 cm; Wt 67.5 kg
[2018-08-09 22:27] VITALS: Ht 172.7 cm; Wt 67.5 kg
--- NOTE | 2018-08-10 04:36 | ERD ---
ER Documentation Chief Complaint Chief Complaint BACK, CHEST PAIN; HX OF PNEUMOTHORAX HPI Pt is a 23 year old M with hx of spontaneous PTX requiring chest tube placement in March 2017 who presents to the ED with complaints of intermittent "stinging" and "pulsating" pain to his right anterior chest. Pain shoots towards his mid back. He states symptoms started after working out. He is concerned because of his history of PTX and is requesting a CXR to rule this out. Sx are temporarily improved with 800mg Ibuprofen at home. Denies any recent trauma. Denies shortness of breath, difficulty breathing, wheezing or any other symptoms. ROS All systems reviewed and are negative except as per history of present illness. Medications Home Meds Active Scripts Ibuprofen* (Motrin*) 600 Mg Tab, 600 MG PO Q6, #30 TAB Prov:MACKENZIE DAUGHERTY PA-C 06/20/18 Bacitracin* (Bacitracin Zinc Oint*) 28.35 Gm Oint, 1 APPLIC TOP BID, #1 TUB APPLI TO Prov:ANGEL GUAJARDO PA-C 05/24/18 Ibuprofen* (Motrin*) 600 Mg Tab, 600 MG PO Q6, #30 TAB Prov:ANGEL GUAJARDO PA-C 05/24/18 Sulfamethoxazole/Trimethoprim* (Bactrim Ds* Tablet) 1 Each Tablet, 1 TAB PO BID, #14 TAB Prov:ANGEL GUAJARDO PA-C 05/24/18 Cephalexin* (Keflex*) 500 Mg Capsule, 500 MG PO QID for 7 Days, CAP Prov:ANGEL GUAJARDO PA-C 05/24/18 Ibuprofen* (Motrin*) 600 Mg Tab, 600 MG PO Q6H PRN for PAIN AND OR ELEVATED TEMP, #30 TAB Prov:HELDER TOLEDO NP 01/22/18 Ibuprofen* (Ibuprofen*) 600 Mg Tablet, 600 MG PO Q8 for PAIN AND/OR INFLAMMATION, #30 TAB Prov:GRACIA MACKENZIE MD 06/01/17 Oxycodone HCl/Acetaminophen (Oxycodone-Acetaminophen 5-325) 1 Each Tablet, 1 TAB PO Q8 PRN for PAIN LEVEL 1-5 for 7 Days, #21 TAB Prov:GRACIA CORDON 05/18/17 Allergies Allergies: Coded Allergies: No Known Allergy (Unverified , 06/01/17) PMhx/Soc History of Surgery: Yes (VATS) Anesthesia Reaction: No Hx Neurological Disorder: No Hx Respiratory Disorders: Yes (R Pneumothorax) Hx Cardiac Disorders: No Hx Psychiatric Problems: No Hx Miscellaneous Medical Probl: No Hx Alcohol Use: Yes (Social) Hx Substance Use: Yes (Marijuana) Hx Tobacco Use: Yes (Cigarettes) Smoking Status: Former smoker Physical Exam Vitals Vital Signs Date Temp Pulse Resp B/P (MAP) Pulse Ox O2 O2 Flow FiO2 Time Delivery Rate 08/10/18 98.3 76 15 130/69 99 Room Air 06:05 (89) 08/09/18 97.8 85 16 129/83 97 22:27 (98) Physical Exam Const: No acute distress Head: Atraumatic Eyes: Normal Conjunctiva ENT: Normal External Ears, Nose and Mouth. Neck: Full range of motion. No meningismus. Resp: Clear to auscultation bilaterally. No rhonchi, wheezes or rales. +Healing scars to right lateral chest, consistent with old chest tube placement Cardio: Regular rate and rhythm, no murmurs, rubs or gallops Skin: No petechiae or rashes Ext: No cyanosis, or edema Neur: Awake and alert Psych: Normal Mood and Affect Procedures/[facility] EMERGENT LABS AND DIAGNOSTIC STUDIES: 12-lead EKG interpretation Normal Sinus Rhythm with ventricular rate of 74 bpm Normal axis Normal intervals No acute ST or T wave changes suggestive of acute ischemia or STEMI. Radiology Results as interpreted by Radiology: PROCEDURE: XR Chest. CLINICAL INDICATION: Chest pain. History of pneumothorax. TECHNIQUE: Single frontal view of the chest COMPARISON: 06/20/2018 two-view chest FINDINGS: The lungs are stable appearance without new focal infiltrate seen. No pleural effusion or pneumothorax is identified. The heart size and mediastinal contours are stable and within normal limits. Osseous structures are intact. IMPRESSION: No significant interval change. No new acute process seen within the chest. Nursing Notes Reviewed. Previous Medical Records requested via the Electronic Health Record. EMERGENCY DEPARTMENT COURSE / MEDICAL DECISION MAKING: This is a 23 year old M with PMHx of spontaneous PTX one and half years ago who presents with nontraumatic anterior chest pain. Pt was worried about another PTX and requesting CXR. CXR was negative for PTX or pulmonary effusion as above. EKG also obtained and unremarkable. I believe pt's symptoms are likely MSK in origin. I have low suspicion for ACS, AAA, PE/DVT or other emergent process. I recommend taking Motrin as needed for pain and following up with his PCP in 2 days. A referral list of community clinics was provided. Pt agrees with treatment plan and understands precautionary instructions to return to the ED for any new or worsening symptoms. 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 Patient's blood pressure was elevated (>120/80) but appears stable without evidence of hypertension emergency or urgency. The patient was counseled about the risks of hypertension and urged to pursue outpatient monitoring and therapy within a week with their primary care physician Smoking Cessation Therapy: Pt. was lectured for greater than 3 minutes on the health risks of continued smoking and the benefits of cessation. Departure Diagnosis: Primary Impression: Atypical chest pain Condition: Stable Patient Instructions: Chest Pain, Noncardiac Referrals: COMMUNITY CLINICS Additional Instructions: Given a referral list of community clinics and pulmonologists to follow up with. Strict return precautions given. ULISES MA PA-C Aug 10, 2018 04:36
[2018-08-10 06:05] VITALS: BP 130/69; PULSE 76; RESP 15
== END 2018-08-10 06:05 | disposition home or self-care (01) ==
LOC: FTE 21:32
DX: R07.89 Other chest pain (principal); Z87.891 Personal history of nicotine dependence
CPT/HCPCS: 71045; 93005; Z7502